=== PATIENT | male | born 1935 | race Caucasian/White ===

== ENCOUNTER 2018-07-17 20:12 | Emergency (ER) | payer MEDICARE, BC, SELFPAY ==
[2018-07-17 20:21] VITALS: BP 128/84; PULSE 73; RESP 22; TEMP 36.8; O2SAT 97; BMI 28.5
--- NOTE | 2018-07-17 20:27 | ED.URI ---
HPI - URI/Sore Throat General Chief Complaint: Upper Respiratory Symptoms Stated Complaint: SOB Time Seen by Provider: 07/17/18 20:26 Source: patient Mode of arrival: ambulatory Limitations: no limitations History of Present Illness HPI Narrative: Patient is an 82-year-old male who presents with difficulty breathing. He says head is hurting as well. He does have a history of Parkinson's. He said he noticed a little bit yesterday and then tonight at dinner he was feeling worse so he went back to his room. He now is feeling better. He denies shortness of breath with exertion he denies chest pain he denies any cough or fever that he is aware of. He has no nausea vomiting or abdominal pain. Related Data Home Medications Medication Instructions Recorded Confirmed dabigatran etexilate [Pradaxa] 300 mg BID #0 01/25/17 donepezil [Aricept] QDAY #0 01/25/17 esomeprazole magnesium [Nexium] QDAY #0 01/25/17 carbidopa-levodopa [Rytary] TID #0 03/10/17 metoprolol succinate [Toprol XL] QDAY #0 03/10/17 losartan 25 mg PO QDAY #0 10/29/17 Previous Rx's Medication Instructions Recorded rasagiline 0.5 mg PO Q DAY #90 tab 01/13/18 carbidopa-levodopa 0 PO SEE INSTRUCTIONS #90 tab 02/15/18 Allergies Allergy/AdvReac Type Severity Reaction Status Date / Time No Known Allergies Allergy Uncoded 02/02/18 12:42 Review of Systems Review of Systems All systems reviewed & are unremarkable except as noted in HPI and below Constitutional Denies chills, Denies fever(s), Denies lethargy and Denies weakness Cardiovascular Denies chest pain, Denies irregular heart rhythm, Denies lightheadedness, Denies palpitations, Reports dyspnea and Denies orthopnea Respiratory Reports as per HPI, Reports dyspnea and Denies wheezing Gastrointestinal Gastrointestinal: Denies abdominal pain, Denies change in bowel habits, Denies diarrhea, Denies nausea and Denies vomiting Genitourinary Denies hematuria, Denies flank pain, Denies urinary incontinence and Denies urinary urgency Musculoskeletal Denies back pain, Denies muscle weakness, Denies numbness and Denies tingling Integumentary/Breasts Denies pruritus, Denies erythema, Denies rash and Denies wounds Neurologic Denies numbness, Denies tingling and Denies weakness Endocrine Denies palpitations Allergic/Immunologic Denies wheezing PFSH Medical History Parkinsons (Acute) Surgical History Status post hernia repair Family History Grandfather Heart disease Grandmother Heart disease Exam Initial Vital Signs Initial Vital Signs: Vital Signs Temperature 98.3 F 07/17/18 20:21 Pulse Rate 73 07/17/18 20:21 Respiratory Rate 22 07/17/18 20:21 Blood Pressure 128/84 07/17/18 20:21 Pulse Oximetry 97 07/17/18 20:21 GENERAL: Alert elderly male with parkinsonian tremor HEENT: Head atraumatic,EOMI, pupils reactive, face symmetric, neck is supple no JVD CARDIOVASCULAR: Regular rate and rhythm without murmurs, rubs or gallops. RESPIRATORY: Breath sounds equal bilaterally, no wheezes rales or rhonchi. ABDOMEN: Soft, nontender. Normoactive bowel sounds all 4 quadrants. No guarding or rebound. ss EXTREMITIES: Normal range of motion, no clubbing or edema. Neurovascularly intact NEUROLOGICAL: Alert and oriented x4.Normal gait and speech. Cranial nerves II through XII grossly intact. Parkinsonian tremor SKIN: Warm, dry, no laceration, no petechiae, no rashes or lesions. Course Orders Ordered: ED Orders 07/17/18 20:40 Consult to Respiratory Therapy Evaluate & Treat EKG-12 Lead Stat 07/17/18 20:41 XR chest 1V Stat 07/17/18 20:50 B Type Natriuretic Peptide Stat Basic Metabolic Panel Stat Complete Blood Count AUTO DIFF Stat Magnesium Stat Partial Thromboplastin Time Stat Prothrombin Time INR Stat Troponin & CK Cardiac Panel Stat 07/17/18 21:35 Urine Culture Stat Urine Microscopic Stat Vital Signs - 8 hr 07/17/18 21:30 07/17/18 22:25 Pulse Rate 74 75 Respiratory Rate 23 19 Blood Pressure 127/60 Blood Pressure [Right Arm] 126/62 Pulse Oximetry 100 MDM - URI/Sore Throat Lab Data Result diagrams: 07/17/18 20:50 07/17/18 20:50 Lab Results 07/17/18 07/17/18 07/17/18 Range/Units 20:50 20:50 20:50 WBC 11.9 H (4.5-11.0) X10^3/uL RBC 4.81 (4.5-5.9) X10^6/uL Hgb 15.0 (13.5-17.5) g/dL Hct 44.4 (41-53) % MCV 92.2 (80-100) fL MCH 31.2 (26-34) PG MCHC 33.9 (30-36) % RDW 13.5 (11.6-14.8) % Plt Count 219 (150-400) X10^3/uL Neut % (Auto) 87.2 H (50-75) % Lymph % (Auto) 6.0 L (25-40) % [place] % (Auto) 5.6 (3-14) % Eos % (Auto) 0.5 L (2-4) % Baso % (Auto) 0.7 (0-2) % Neut # (Auto) 06250 H (8699-1439) /uL PT 12.0 (10.1-12.7) SECONDS INR 1.1 (0.9-1.3) APTT 43 H (26.4-36.2) SECONDS Sodium 143 (137-145) mmol/L Potassium 4.2 (3.4-5.1) mmol/L Chloride 105 (98-107) mmol/L Carbon Dioxide 29 (22-32) mmol/L BUN 18 (9-20) mg/dL Creatinine 1.00 (0.66-1.25) mg/dL Estimated GFR > 60.0 (>60) mL/min BUN/Creatinine Ratio 18.0 (6-22) Glucose 106 (80-110) mg/dL Calcium 10.1 (8.4-10.2) mg/dL Magnesium 2.0 (1.6-2.3) mg/dL Total Creatine Kinase 30 L (55-170) U/L Troponin I < 0.012 (0.01-0.034) ng/mL B-Natriuretic Peptide 84.1 (<100) Urine RBC (0-5/HPF) Urine WBC (0-5/HPF) Urine Bacteria (None) Ur Culture Indicated? Micro UA Comment 07/17/18 Range/Units 21:35 WBC (4.5-11.0) X10^3/uL RBC (4.5-5.9) X10^6/uL Hgb (13.5-17.5) g/dL Hct (41-53) % MCV (80-100) fL MCH (26-34) PG MCHC (30-36) % RDW (11.6-14.8) % Plt Count (150-400) X10^3/uL Neut % (Auto) (50-75) % Lymph % (Auto) (25-40) % [place] % (Auto) (3-14) % Eos % (Auto) (2-4) % Baso % (Auto) (0-2) % Neut # (Auto) (9853-5119) /uL PT (10.1-12.7) SECONDS INR (0.9-1.3) APTT (26.4-36.2) SECONDS Sodium (137-145) mmol/L Potassium (3.4-5.1) mmol/L Chloride (98-107) mmol/L Carbon Dioxide (22-32) mmol/L BUN (9-20) mg/dL Creatinine (0.66-1.25) mg/dL Estimated GFR (>60) mL/min BUN/Creatinine Ratio (6-22) Glucose (80-110) mg/dL Calcium (8.4-10.2) mg/dL Magnesium (1.6-2.3) mg/dL Total Creatine Kinase (55-170) U/L Troponin I (0.01-0.034) ng/mL B-Natriuretic Peptide (<100) Urine RBC 0-1/hpf (0-5/HPF) Urine WBC 10-30/hpf H (0-5/HPF) Urine Bacteria Moderate (10-30) H (None) Ur Culture Indicated? Specimen cultured Micro UA Comment Not Reportable Urine Dip Bedside Urine Glucose Negative Bedside Urine Bilirubin - Negative Bedside Urine Ketone - Negative Urine Specific [place] 1.025 Bedside Urine Occult Blood +/- Bedside Urine pH 6.0 Bedside Urine Protein - Negative Bedside Urine Urobilinogen - Negative Bedside Urine Nitrite - Negative Bedside Urine Leukocytes ++ 125 Esterase Imaging Data Chest x-ray: Radiologist's impression: PROCEDURE: XR CHEST 1V INDICATIONS: short of breath TECHNIQUE: One view of the chest was acquired. COMPARISON: None. FINDINGS: Surgical changes and devices: None. Lungs and pleura: No pleural effusions or pneumothorax. Lungs are clear. Mediastinum: Mediastinal contours appear normal. Heart size is normal. Bones and chest wall: No suspicious bony lesions. Overlying soft tissues appear unremarkable. IMPRESSION: No acute cardiopulmonary disease process. Dictated by: Ying Cochran MD, PhD on 07/17/2018 at 21:19 ECG Data Attestation: I personally reviewed and interpreted this ECG as follows: Prior ECG tracings: not available for review Interpretation: Sinus rhythm rate [address] changes MDM Narrative Medical decision making narrative: Patient has mild leukocytosis chest x-ray is clear. No source of shortness of breath. He does have a history of paroxysmal atrial fibrillation he is currently in sinus. Possible he had an episode of AFib. He does have bacteria and leukocytes in his urine and history of incontinence. However he denies painful or frequent urination no abdominal pain. At this time with culture results. Daughter has made aware of this. Follow up with primary care physician. Discharge Plan Departure Patient Disposition: Home Clinical Impression: Paroxysmal A-fib Discharge Date/Time: 07/17/18 22:31 Interventions: ED Discharge Assessment Last Done: 07/17/18 22:25 Instructions: DI for Shortness of Breath Activity Restrictions/Additional Instructions: *You have been diagnosed with shortness of breath, paroxysmal atrial fibrillation *What to do: Chest x-ray is clear, EKG shows sinus rhythm, urine does have bacteria in it. However you're not currently having symptoms and do not need antibiotics. Wait for urine culture may require antibiotics then please speak with her primary care physician. *Continue to take medications as directed *Follow up with your primary care provider in 2-3 days *Return to ER if you should have increased confusion, increased shortness of breath, chest pain, painful or frequent urination or any new, worsening or concerning symptoms Prescriptions: No Action donepezil [Aricept] 10 MG tablet QDAY Qty: 0 RF: 0 esomeprazole magnesium [Nexium] 40 MG capsule,delayed release(DR/EC) QDAY Qty: 0 RF: 0 dabigatran etexilate [Pradaxa] 150 MG capsule 300 mg BID Qty: 0 RF: 0 carbidopa-levodopa [Rytary] 48.75 MG/195 MG capsule, extended release TID Qty: 0 RF: 0 metoprolol succinate [Toprol XL] 25 MG tablet extended release 24 hr QDAY Qty: 0 RF: 0 losartan 25 MG tablet 25 mg PO QDAY Qty: 0 RF: 0 rasagiline 0.5 MG tablet 0.5 mg PO Q DAY Qty: 90 RF: 3 carbidopa-levodopa 25 MG/100 MG tablet PO SEE INSTRUCTIONS Qty: 90 RF: 3 Referrals: Julia Keith MD [Primary Care Provider] -
--- NOTE | 2018-07-17 20:41 | DI.RAD.S_ITS ---
PROCEDURE: XR CHEST 1V INDICATIONS: short of breath TECHNIQUE: One view of the chest was acquired. COMPARISON: None. FINDINGS: Surgical changes and devices: None. Lungs and pleura: No pleural effusions or pneumothorax. Lungs are clear. Mediastinum: Mediastinal contours appear normal. Heart size is normal. Bones and chest wall: No suspicious bony lesions. Overlying soft tissues appear unremarkable. IMPRESSION: No acute cardiopulmonary disease process. Dictated by: Ying Cochran MD, PhD on 07/17/2018 at 21:19 Approved by: Ying Cochran MD, PhD on 07/17/2018 at 21:19
[2018-07-17 20:59] LABS: Add Manual Diff / Slide Review NO; Basophils Percent Auto 0.7 % (0-2); Eosinophils Percent Auto 0.5 % (2-4); Hematocrit 44.4 % (41-53); Mean Corpuscular HGB Conc 33.9 % (30-36); Mean Corpuscular Hemoglobin 31.2 PG (26-34); Mean Corpuscular Volume 92.2 fL (80-100); Monocytes Percent Auto 5.6 % (3-14); Neutrophils Absolute Auto 10400 /uL (3000-5900); Neutrophils Percent Auto 87.2 % (50-75); Platelet Count 219 X10^3/uL (150-400); Red Blood Cell Count 4.81 X10^6/uL (4.5-5.9); Red Cell Distribution Width 13.5 % (11.6-14.8); White Blood Cell Count 11.9 X10^3/uL (4.5-11.0)
[2018-07-17 21:01] VITALS: BP 128/84; PULSE 73; RESP 22; TEMP 36.8; O2SAT 97; BMI 28.5
[2018-07-17 21:05] LABS: INR 1.1 (0.9-1.3)
[2018-07-17 21:07] LABS: PTT Partial Thromboplastin Tim 43 SECONDS (26.4-36.2)
[2018-07-17 21:09] LABS: Blood Urea Nitrogen 18 mg/dL (9-20); Calcium 10.1 mg/dL (8.4-10.2); Carbon Dioxide 29 mmol/L (22-32); Chloride 105 mmol/L (98-107); Creatine Kinase 30 U/L (55-170); Estimated Glomerular Filt Rate > 60.0 mL/min (>60); Glucose 106 mg/dL (80-110); HEMOLYSIS < 15 (0-50); Potassium 4.2 mmol/L (3.4-5.1); Sodium 143 mmol/L (137-145)
[2018-07-17 21:20] LABS: Troponin I < 0.012 ng/mL (0.01-0.034)
[2018-07-17 21:22] LABS: B Type Natriuretic Peptide 84.1 (<100)
[2018-07-17 21:30] VITALS: BP 126/62; PULSE 74; RESP 23
[2018-07-17 21:44] LABS: Bacteria Urine Moderate (10-30); Culture Indicated Urine Specimen Cultured; RBC Urine 0-1/HPF (0-5/HPF); WBC Urine 10-30/HPF (0-5/HPF)
[2018-07-17 22:25] VITALS: BP 127/60; PULSE 75; RESP 19; O2SAT 100
== END 2018-07-17 22:31 | disposition home or self-care (01) ==
PROVIDERS: Emergency Provider Emergency Medicine; Family Provider Family Medicine; PCP Family Medicine
DX: I48.91 Unspecified atrial fibrillation (principal)
CPT/HCPCS: 36591; 71045; 80048; 81003; 81015; 82550; 82553; 83735; 83880; 84484; 85025; 85610; 85730; 87077; 87086; 87186; 93005; 99283; 99285

== ENCOUNTER → 2018-07-29 12:16 | Outpatient (CLI) | payer MEDICARE, BC, SELFPAY | PROVIDERS: Family Provider Family Medicine; PCP Family Medicine; Visit Provider Family Medicine | DX: R32 Unspecified urinary incontinence (principal) | CPT/HCPCS: 87077; 87086; 87186 ==

== ENCOUNTER → 2018-08-22 11:21 | Outpatient (CLI) | payer MEDICARE, BC, SELFPAY ==
[2018-08-22 12:02] LABS: RBC Urine None Seen (0-5/HPF)
[2018-08-22 12:10] LABS: Appearance Urine UA SL CLOUDY; Bilirubin Urine UA NEGATIVE (NEGATIVE); Color Urine UA YELLOW; Glucose Urine UA NEGATIVE (Normal); Ketones Urine UA NEGATIVE (NEGATIVE); Leukocyte Esterase Urine UA 2+ (NEGATIVE); Nitrite Urine UA POSITIVE (Negative); Occult Blood Urine UA TRACE-LYSED (Negative); Protein Urine UA NEGATIVE (Negative); Specific Gravity Urine UA 1.025 (1.000-1.035); Urobilinogen Urine UA 0.2 E.U./dL (0.2)
[2018-08-22 12:17] LABS: WBC Urine 10-30/HPF (0-5/HPF)
[2018-08-22 12:18] LABS: Bacteria Urine Few (2-10); Culture Indicated Urine Specimen Cultured
== END ==
PROVIDERS: PCP Family Medicine; Visit Provider Family Medicine
DX: R30.0 Dysuria (principal)
CPT/HCPCS: 81001; 87077; 87086; 87186

== ENCOUNTER → 2018-08-31 13:31 | Outpatient (CLI) | payer MEDICARE, BC, SELFPAY ==
[2018-08-31 14:51] LABS: Appearance Urine UA CLEAR; Bilirubin Urine UA NEGATIVE (NEGATIVE); Color Urine UA YELLOW; Glucose Urine UA NEGATIVE (Normal); Ketones Urine UA NEGATIVE (NEGATIVE); Leukocyte Esterase Urine UA TRACE (NEGATIVE); Nitrite Urine UA NEGATIVE (Negative); Occult Blood Urine UA NEGATIVE (Negative); Protein Urine UA NEGATIVE (Negative); Specific Gravity Urine UA >=1.030 (1.000-1.035); Urobilinogen Urine UA 0.2 E.U./dL (0.2)
[2018-08-31 15:02] LABS: RBC Urine 0-1/HPF (0-5/HPF)
[2018-08-31 15:03] LABS: Bacteria Urine Occasional (0-1); Culture Indicated Urine Specimen Cultured; Mucus Urine 1+ (Negative); Squamous Epithelial Cell Urine 0-1 /HPF; WBC Urine 5-10/HPF (0-5/HPF)
== END ==
PROVIDERS: Family Provider Family Medicine; PCP Family Medicine; Visit Provider Family Medicine
DX: R39.9 Unspecified symptoms and signs involving the genitourinary system (principal)
CPT/HCPCS: 81001; 87086

== ENCOUNTER 2018-11-11 09:22 | Emergency (ER) | payer MEDICARE, BC, SELFPAY ==
[2018-11-11 09:28] VITALS: BP 150/98; PULSE 67; RESP 17; TEMP 36.4; O2SAT 100
[2018-11-11 10:20] LABS: Hematocrit 42.2 % (41-53); Hemoglobin 14.1 g/dL (13.5-17.5)
--- NOTE | 2018-11-11 10:42 | ED_ITS ---
HPI - GI Bleed General Chief complaint: GI Bleed Stated complaint: RECTAL BLEEDING Time Seen by Provider: 11/11/18 09:34 Source: patient Mode of arrival: ambulatory Limitations: no limitations History of Present Illness HPI Narrative: 82-year-old male, nonsmoker with history of AFib on Pradaxa presents with bright red rectal bleeding. Patient complains that the last 2 mornings he has had a small amount of bright red blood on his underpants. He denies any bloody bowel movements or dark stool. He has had no blood in his urine. He denies any dizziness, weakness or lightheadedness. He denies chest pain or shortness of breath. He denies any abdominal pain, cramping or diarrhea. He has no history of ulcers, liver disease or varices. His last colonoscopy was about 6 years ago and noted diverticulosis MD complaint: blood on toilet paper Onset (ago): day(s) Pain Consistency: intermittent and now resolved Severity: mild Relieving factors: none Exacerbating factors: none Context: anticoagulant use Associated symptoms: denies other symptoms Treatments Prior to Arrival: none Related Data Home Medications Medication Instructions Recorded Confirmed donepezil [Aricept] 10 mg PO DAILY #0 01/25/17 11/11/18 esomeprazole magnesium [Nexium] 40 mg PO DAILY #0 01/25/17 11/11/18 carbidopa-levodopa [Rytary] 1 cap PO TID #0 03/10/17 11/11/18 losartan 25 mg PO DAILY #0 10/29/17 11/11/18 carbidopa 25 mg-levodopa 100 mg 1 tab PO DAILY tab 07/19/18 11/11/18 tablet dabigatran etexilate [Pradaxa] 150 mg PO BID 11/11/18 11/11/18 metoprolol succinate [Toprol XL] 50 mg PO DAILY 11/11/18 rasagiline 1 mg PO DAILY 11/11/18 11/11/18 Previous Rx's Medication Instructions Recorded fluticasone furoate 27.5 1 spray NASAL DAILY #9.1 ml 07/19/18 mcg/actuation nasal spray,suspension Allergies Allergy/AdvReac Type Severity Reaction Status Date / Time nitrofurantoin AdvReac Verified 07/29/18 12:21 [From Macrobid] Review of Systems Constitutional Denies chills, Denies fever(s), Denies lethargy and Denies weakness Eyes Denies change in vision, Denies eye discharge, Denies irritation and Denies loss of vision ENT Ears, Nose, Mouth, and Throat: Denies change in voice, Denies neck pain and Denies sore throat Cardiovascular Denies chest pain, Denies irregular heart rhythm, Denies lightheadedness, Denies palpitations, Denies dyspnea, Denies dyspnea on exertion and Denies orthopnea Respiratory Denies cough, Denies dyspnea, Denies dyspnea on exertion and Denies wheezing Gastrointestinal Gastrointestinal: Denies abdominal pain, Reports hematochezia, Denies change in bowel habits, Denies diarrhea, Denies nausea and Denies vomiting Genitourinary Denies hematuria, Denies flank pain, Denies urinary incontinence and Denies urinary urgency Musculoskeletal Denies neck pain Integumentary/Breasts Denies pruritus, Denies erythema, Denies rash and Denies wounds Neurologic Denies confusion, Denies loss of vision and Denies weakness Psychiatric Denies anxiety, Denies confusion, Denies depression, Denies homicidal ideation and Denies suicidal ideation Endocrine Denies palpitations Hematologic/Lymphatic Denies easy bruising Allergic/Immunologic Denies wheezing [facility] Medical History Atrial fibrillation (Chronic 2009) Zavaleta's esophagus (Chronic) Cataract (Chronic 1999) Chronic back pain (Chronic 1999) Diverticular disease (Chronic 2006) Esophageal ring (Chronic 1999) Esophageal web (Chronic 1999) Fecal incontinence (Chronic 2014) GERD (gastroesophageal reflux disease) (Chronic 1999) Gout (Chronic 1969) Hayfever (Chronic 1999) Hearing loss (Chronic 1999) Herpes (Chronic 1982) Hypertension (Chronic 2007) Parkinson's disease (Chronic 2010) Polymyalgia rheumatica (Chronic 2010) Sleep apnea (Chronic 2010) Tinnitus (Chronic 2016) Urinary incontinence (Chronic 2014) Colon polyps (Resolved 2001) Melanoma (Resolved 2001) Recurrent sinusitis (Resolved 1999) Skin cancer (Resolved 2006) Surgical History Anesthesia (Resolved) History of sinus surgery (Resolved 1989) Status post hernia repair (Resolved 1999) Family History Grandfather Heart disease Grandmother Heart disease Father Alcoholism Mother Alzheimer's disease Grandfather MVA (motor vehicle accident) Grandmother No problems noted. Social History Smoking Status: Never smoker Exam Narrative Exam Narrative: GEN: AOx3 and in mild distress, resting comfortably EYES: Pupils are equal, round, and reactive to light and accommodation. Extraoccular muscles are intact bilaterally. There is no subconjunctival hemorrhage or exudate. CHEST: Lungs are clear to auscultation bilaterally and free of wheezes, rales, or rhonchi. Heart rate is regular rhythm, there are no murmurs, clicks, rubs, or gallops. There is no chest wall tenderness. ABD: Abdomen is soft and nontender. There is no guarding or rebound. Bowel sounds are normal in all 4 quadrants. There is no mass or organomegaly. RECTAL: No hemorrhoid, no fissure, nontender exam and no obvious blood. Hemoccult negative EXT: Full painless ROM of all extremities with no loss of sensation or strength. SKIN: Warm, pink, and dry. No erythema or rash Initial Vital Signs Initial Vital Signs: Vital Signs Temperature 97.5 F L 11/11/18 09:28 Pulse Rate 67 11/11/18 09:28 Respiratory Rate 17 11/11/18 09:28 Blood Pressure 150/98 H 11/11/18 09:28 Pulse Oximetry 100 11/11/18 09:28 Course Orders Ordered: ED Orders 11/11/18 10:07 Hemoglobin and Hematocrit Stat Consultations Consultation #1: Discussion with PCP, Dr. Keith, we agree that remaining on Pradaxa and close follow-up is most appropriate course of action. She expects to see him next week Vital Signs - 8 hr 11/11/18 09:28 Temperature 97.5 F L Pulse Rate 67 Respiratory Rate 17 Blood Pressure 150/98 H Pulse Oximetry 100 MDM - GI Bleed Lab Data Result diagrams: 11/11/18 10:07 Lab Results 11/11/18 Range/Units 10:07 Hgb 14.1 (13.5-17.5) g/dL Hct 42.2 (41-53) % Discharge Plan Departure Patient Disposition: Home Clinical Impression: Bright red rectal bleeding Discharge Date/Time: 01/18/19 10:46 Instructions: DI for Rectal Bleeding Activity Restrictions/Additional Instructions: *You have been diagnosed with [ Acute rectal bleeding ] *What to do: *Take medications as directed. CONTINUE PRADAXA *Follow up with your primary care provider in 2-3 days, call for an appointment. Let them know you were seen in the Emergency Department and that we ask that you be seen in follow up *Return to ER if you should have any new, worsening or concerning symptoms 1. Drink plenty of fluids with frequent small sips. 2. For the next 24 hours a clear liquid diet is advised. After that please employ a brat diet which would include bananas, rice, apples, toast. 3. Please continue to take medications as previously directed. Prescriptions: No Action donepezil [Aricept] 10 MG tablet 10 mg PO DAILY Qty: 0 RF: 0 esomeprazole magnesium [Nexium] 40 MG capsule,delayed release(DR/EC) 40 mg PO DAILY Qty: 0 RF: 0 carbidopa-levodopa [Rytary] 48.75 MG/195 MG capsule, extended release 1 cap PO TID Qty: 0 RF: 0 losartan 25 MG tablet 25 mg PO DAILY Qty: 0 RF: 0 carbidopa-levodopa 25-100 mg tablet 1 tab PO DAILY RF: 0 fluticasone furoate [Flonase Sensimist] 27.5 mcg/actuation spray,suspension 1 spray NASAL DAILY Qty: 9.1 RF: 0 metoprolol succinate [Toprol XL] 50 mg tablet extended release 24 hr 50 mg PO DAILY RF: 0 rasagiline 1 mg tablet 1 mg PO DAILY RF: 0 dabigatran etexilate [Pradaxa] 150 mg capsule 150 mg PO BID RF: 0 Referrals: Julia Keith MD [Primary Care Provider] -
[2018-11-11 10:45] VITALS: BP 139/83; PULSE 70; RESP 16; O2SAT 100
== END 2018-11-11 10:46 | disposition home or self-care (01) ==
PROVIDERS: Emergency Provider Emergency Medicine; Family Provider Family Medicine; PCP Family Medicine
DX: K62.5 Hemorrhage of anus and rectum (principal)
CPT/HCPCS: 85014; 85018; 99282; 99283

== ENCOUNTER 2019-03-04 17:23 | Emergency (ER) | payer MEDICARE, BC, SELFPAY ==
[2019-03-04 17:25] VITALS: BP 147/86; PULSE 58; RESP 18; TEMP 36.7; O2SAT 95
--- NOTE | 2019-03-04 17:37 | DI.CT.S_ITS ---
PROCEDURE: CT HEAD/BRAIN WO CON INDICATIONS: memory loss TECHNIQUE: Noncontrast 4.5 mm thick angled axial sections acquired from the foramen magnum to the vertex, with coronal and sagittal reformats. For radiation dose reduction, the following was used: automated exposure control, adjustment of mA and/or kV according to patient size. COMPARISON: None. FINDINGS: Image quality: Excellent. CSF spaces: Basal cisterns are patent. No extra-axial fluid collections. The ventricles are symmetric in size and shape. Brain: No intracranial bleeds or masses. There is cerebral volume loss for age, with resultant ventricular and sulcal prominence. There are periventricular and deep white matter chronic small vessel ischemic changes. There is intracranial internal carotid artery atherosclerosis. Skull and face: Calvarium and visualized facial bones appear intact, without suspicious lesions. Sinuses: Visualized sinuses and mastoids are clear. IMPRESSION: No acute intracranial process. Dictated by: Gucci Mcbride M.D. on 03/04/2019 at 18:05 Approved by: Gucci Mcbride M.D. on 03/04/2019 at 18:07
--- NOTE | 2019-03-04 17:37 | DI.RAD.S_ITS ---
PROCEDURE: XR CHEST 1V INDICATIONS: chest pain TECHNIQUE: One view of the chest was acquired. COMPARISON: [facility], CR, XR CHEST 1V, 07/17/2018, 20:46. FINDINGS: Surgical changes and devices: None. Lungs and pleura: Lungs are clear. No pleural effusions or pneumothorax. Mediastinum: The cardiac contours are within normal limits. The aorta demonstrates calcification and tortuosity. Bones and chest wall: Age-appropriate bony degenerative changes are seen. No suspicious bony lesions. Overlying soft tissues appear unremarkable. IMPRESSION: Unremarkable imaging examination for age. Dictated by: Elmer Ashley M.D. on 03/04/2019 at 17:11 Approved by: Elmer Ashley M.D. on 03/04/2019 at 17:11
[2019-03-04 17:39] VITALS: BP 165/57; PULSE 52; RESP 18; O2SAT 95
[2019-03-04 17:59] LABS: Add Manual Diff / Slide Review NO; Basophils Absolute Auto 0 /uL (0-100); Basophils Percent Auto 0.2 % (0-2); Eosinophils Absolute Auto 100 /uL (0-450); Hematocrit 43.9 % (41-53); Hemoglobin 14.3 g/dL (13.5-17.5); Lymphocytes Absolute Auto 1300 /uL (1100-4500); Lymphocytes Percent Auto 19.3 % (25-40); Mean Corpuscular HGB Conc 32.7 % (30-36); Mean Corpuscular Hemoglobin 30.1 PG (26-34); Monocytes Absolute Auto 600 /uL (0-900); Monocytes Percent Auto 9.1 % (3-14); Neutrophils Absolute Auto 4800 /uL (1500-7000); Neutrophils Percent Auto 69.4 % (50-75); Platelet Count 259 X10^3/uL (150-400); Red Blood Cell Count 4.77 X10^6/uL (4.5-5.9); Red Cell Distribution Width 13.8 % (11.6-14.8); White Blood Cell Count 6.8 X10^3/uL (4.5-11.0)
--- NOTE | 2019-03-04 18:04 | ED_ITS ---
HPI - Neuro Symptoms/Deficit General Chief Complaint: Neuro Symptoms/Deficit Stated Complaint: episode of memory loss, now resolved. Time Seen by Provider: 03/04/19 18:04 Source: patient Mode of arrival: EMS Limitations: no limitations History of Present Illness HPI Narrative: Patient is an 83-year-old male brought in by EMS from [facility]. Was reported that this evening he was going to dinner and was reported to have an episode where he seemed confused and did know where he was. This seems to have resolved by now. Upon further questioning patient states that he has little memory of lunch today. He states he does not remember breakfast but this is not unusual for him because he does not eat breakfast. He also states that he does not remember last evening. He reports now that all the symptoms seems to have improved. Upon further questioning he does describe having dysuria that has been going on the past couple days. Patient's daughter was at bedside and stated that she checked his medications and it does appear that he has been taking his medications. She does state that he has had a urinary tract infection in the past and she thinks that he had some memory issues during that time. There is no reports of falls. On Anticoagulants: Yes (Pradaxa) Related Data Home Medications Medication Instructions Recorded Confirmed donepezil [Aricept] 10 mg PO DAILY #0 01/25/17 11/11/18 esomeprazole magnesium [Nexium] 40 mg PO DAILY #0 01/25/17 11/11/18 carbidopa-levodopa [Rytary] 1 cap PO TID #0 03/10/17 11/11/18 losartan 25 mg PO DAILY #0 10/29/17 11/11/18 dabigatran etexilate [Pradaxa] 150 mg PO BID 11/11/18 11/11/18 metoprolol succinate [Toprol XL] 50 mg PO DAILY 11/11/18 rasagiline 1 mg PO DAILY 11/11/18 11/11/18 Previous Rx's Medication Instructions Recorded fluticasone furoate 27.5 1 spray NASAL DAILY #9.1 ml 07/19/18 mcg/actuation nasal spray,suspension carbidopa 25 mg-levodopa 100 mg 1 tab PO DAILY #90 tab 02/17/19 tablet levofloxacin [Levaquin] 500 mg PO DAILY 2 Days #2 tab 03/04/19 Allergies Allergy/AdvReac Type Severity Reaction Status Date / Time nitrofurantoin AdvReac Verified 07/29/18 12:21 [From Macrobid] Review of Systems Constitutional Denies fever(s), Denies frequent falls, Denies headache(s) and Denies weakness ENT Ears, Nose, Mouth, and Throat: Denies headache(s) Cardiovascular Denies chest pain, Denies palpitations and Denies dyspnea Respiratory Denies dyspnea Gastrointestinal Gastrointestinal: Denies abdominal pain, Denies nausea and Denies vomiting Genitourinary Denies dysuria Integumentary/Breasts Denies rash Neurologic Denies abnormal movements, Denies abnormal speech, Reports confusion, Denies frequent falls, Denies headache(s), Reports memory loss and Denies weakness Psychiatric Reports confusion and Reports memory loss Endocrine Denies palpitations Hematologic/Lymphatic Denies easy bleeding and Denies easy bruising [facility] Medical History Atrial fibrillation (Chronic 2009) Zavaleta's esophagus (Chronic) Cataract (Chronic 1999) Chronic back pain (Chronic 1999) Diverticular disease (Chronic 2006) Esophageal ring (Chronic 1999) Esophageal web (Chronic 1999) Fecal incontinence (Chronic 2014) GERD (gastroesophageal reflux disease) (Chronic 1999) Gout (Chronic 1969) Hayfever (Chronic 1999) Hearing loss (Chronic 1999) Herpes (Chronic 1982) Hypertension (Chronic 2007) Parkinson's disease (Chronic 2010) Polymyalgia rheumatica (Chronic 2010) Sleep apnea (Chronic 2010) Tinnitus (Chronic 2015) Urinary incontinence (Chronic 2014) Colon polyps (Resolved 2001) Melanoma (Resolved 2001) Recurrent sinusitis (Resolved 1999) Skin cancer (Resolved 2006) Social History Smoking Status: Former smoker Exam Initial Vital Signs Initial Vital Signs: Vital Signs Temperature 98.1 F 03/04/19 17:25 Pulse Rate 58 L 03/04/19 17:25 Respiratory Rate 18 03/04/19 17:25 Blood Pressure 147/86 H 03/04/19 17:25 Pulse Oximetry 95 03/04/19 17:25 Const General: cooperative, healthy appearing, comfortable, well developed, well groomed and No acute distress Orientation: alert, awake, oriented to person, oriented to place and oriented to time Limitations: mental status not altered [facility] Head: normal to inspection and normocephalic Ears: hearing grossly normal bilaterally Nose: external nose normal Resp Effort & Inspection: normal respiratory effort Auscultation: clear to auscultation bilaterally Cardio Rate: bradycardic Rhythm: regular rhythm Pulses: radial pulses present GI Inspection: non-distended Palpation: soft Back/Spine/Pelvis Back: No CVA tenderness Skin Lesions: no lesions Rashes: no rashes Neuro General: alert, awake and oriented x3 Speech: speech normal Motor: muscle tone normal throughout Sensory Exam: no sensory deficits noted Extrem General: normal to inspection and capillary refill normal Psych Appearance: grossly normal and well kempt Scores GCS [place] coma scale eye opening: Spontaneous Real coma scale verbal response: Orientated [place] coma scale motor response: Obey commands [place] coma scale total score: 15 Course Orders Ordered: ED Orders 03/04/19 17:37 CT head/brain wo con Stat XR chest 1V Stat EKG-12 Lead Stat 03/04/19 17:40 Complete Blood Count AUTO DIFF Stat Comprehensive Metabolic Panel Stat Lipase Stat Partial Thromboplastin Time Stat Prothrombin Time INR Stat Troponin & CK Cardiac Panel Stat 03/04/19 19:18 Urine Culture Stat Urine Microscopic Stat Discontinued Medications Levofloxacin (Levaquin) 500 mg PO NOW ONE Stop: 03/04/19 19:33 Last Admin: 03/04/19 19:46 Dose: 500 mg Vital Signs - 8 hr 03/04/19 18:39 03/04/19 19:54 Pulse Rate 47 L 50 L Respiratory Rate 12 18 Blood Pressure [Right Arm] 128/72 Pulse Oximetry 98 MDM - Neuro Symptoms/Deficit Lab Data Attestation: I reviewed the patient's lab results. Result diagrams: 03/04/19 17:40 03/04/19 17:40 Lab Results 03/04/19 03/04/19 03/04/19 Range/Units 17:40 17:40 17:40 WBC 6.8 (4.5-11.0) X10^3/uL RBC 4.77 (4.5-5.9) X10^6/uL Hgb 14.3 (13.5-17.5) g/dL Hct 43.9 (41-53) % MCV 92.0 (80-100) fL MCH 30.1 (26-34) PG MCHC 32.7 (30-36) % RDW 13.8 (11.6-14.8) % Plt Count 259 (150-400) X10^3/uL Neut % (Auto) 69.4 (50-75) % Lymph % (Auto) 19.3 L (25-40) % [place] % (Auto) 9.1 (3-14) % Eos % (Auto) 2.0 (2-4) % Baso % (Auto) 0.2 (0-2) % Neut # (Auto) 4800 (3521-8211) /uL Lymph # (Auto) 1300 (0001-5969) /uL [place] # (Auto) 600 (0-900) /uL Eos # (Auto) 100 (0-450) /uL Baso # (Auto) 0 (0-100) /uL PT 13.5 H (10.1-12.7) SECONDS INR 1.2 (0.9-1.3) APTT 68 H D (26.4-36.2) SECONDS Sodium 138 (137-145) mmol/L Potassium 4.2 (3.4-5.1) mmol/L Chloride 102 (98-107) mmol/L Carbon Dioxide 27 (22-32) mmol/L BUN 19 (9-20) mg/dL Creatinine 1.10 (0.66-1.25) mg/dL Estimated GFR > 60.0 (>60) mL/min BUN/Creatinine Ratio 17.3 (6-22) Glucose 104 (80-110) mg/dL Calcium 9.7 (8.4-10.2) mg/dL Total Bilirubin 0.4 (0.2-1.3) mg/dL AST 20 (17-59) IU/L ALT 14 L (21-72) IU/L Alkaline Phosphatase 78 (38-126) U/L Total Creatine Kinase 28 L (55-170) U/L CK-MB (CK-2) TNP CK-MB (CK-2) Rel Index TNP Troponin I < 0.012 (0.01-0.034) ng/mL Total Protein 6.9 (6.3-8.2) g/dL Albumin 4.1 (3.5-5.0) g/dL Globulin 2.8 (1.7-4.1) g/dL Albumin/Globulin Ratio 1.5 (1.0-2.8) Lipase 32 (23-300) U/L Urine RBC (0-5/HPF) Urine WBC (0-5/HPF) Urine Bacteria (None) Ur Culture Indicated? 03/04/19 Range/Units 19:18 WBC (4.5-11.0) X10^3/uL RBC (4.5-5.9) X10^6/uL Hgb (13.5-17.5) g/dL Hct (41-53) % MCV (80-100) fL MCH (26-34) PG MCHC (30-36) % RDW (11.6-14.8) % Plt Count (150-400) X10^3/uL Neut % (Auto) (50-75) % Lymph % (Auto) (25-40) % [place] % (Auto) (3-14) % Eos % (Auto) (2-4) % Baso % (Auto) (0-2) % Neut # (Auto) (2476-6139) /uL Lymph # (Auto) (2992-0931) /uL [place] # (Auto) (0-900) /uL Eos # (Auto) (0-450) /uL Baso # (Auto) (0-100) /uL PT (10.1-12.7) SECONDS INR (0.9-1.3) APTT (26.4-36.2) SECONDS Sodium (137-145) mmol/L Potassium (3.4-5.1) mmol/L Chloride (98-107) mmol/L Carbon Dioxide (22-32) mmol/L BUN (9-20) mg/dL Creatinine (0.66-1.25) mg/dL Estimated GFR (>60) mL/min BUN/Creatinine Ratio (6-22) Glucose (80-110) mg/dL Calcium (8.4-10.2) mg/dL Total Bilirubin (0.2-1.3) mg/dL AST (17-59) IU/L ALT (21-72) IU/L Alkaline Phosphatase (38-126) U/L Total Creatine Kinase (55-170) U/L CK-MB (CK-2) CK-MB (CK-2) Rel Index Troponin I (0.01-0.034) ng/mL Total Protein (6.3-8.2) g/dL Albumin (3.5-5.0) g/dL Globulin (1.7-4.1) g/dL Albumin/Globulin Ratio (1.0-2.8) Lipase (23-300) U/L Urine RBC None seen (0-5/HPF) Urine WBC 5-10/hpf H (0-5/HPF) Urine Bacteria Many (>30) H (None) Ur Culture Indicated? Specimen cultured Urine Dip Bedside Urine Glucose Negative Bedside Urine Bilirubin - Negative Bedside Urine Ketone - Negative Urine Specific [place] 1.020 Bedside Urine Occult Blood +/- Bedside Urine pH 6.0 Bedside Urine Protein - Negative Bedside Urine Urobilinogen - Negative Bedside Urine Nitrite + Positive Bedside Urine Leukocytes +++ [address] scan - head: Radiologist's impression: [address] [address] [address] Scan Report Signed Patient: Emmanuel Egan#: [id number] : 6Acct:[id number] Age/Sex: 83 / MDate of Service: 03/04/19 Loc: ED Accession Number: [id number] Procedure: CT head/brain wo con Ordering Provider: Urszula Cuello D.O. PROCEDURE: CT HEAD/BRAIN WO CON INDICATIONS: memory loss TECHNIQUE: Noncontrast 4.5 mm thick angled axial sections acquired from the foramen magnum to the vertex, with coronal and sagittal reformats. For radiation dose reduction, the following was used: automated exposure control, adjustment of mA and/or kV according to patient size. COMPARISON: None. FINDINGS: Image quality: Excellent. CSF spaces: Basal cisterns are patent. No extra-axial fluid collections. The ventricles are symmetric in size and shape. Brain: No intracranial bleeds or masses. There is cerebral volume loss for age, with resultant ventricular and sulcal prominence. There are periventricular and deep white matter chronic small vessel ischemic changes. There is intracranial internal carotid artery atherosclerosis. Skull and face: Calvarium and visualized facial bones appear intact, without suspicious lesions. Sinuses: Visualized sinuses and mastoids are clear. IMPRESSION: No acute intracranial process. Dictated by: Gucci Mcbride M.D. on 03/04/2019 at 18:05 Approved by: Gucci Mcbride M.D. on 03/04/2019 at 18:07 Chest x-ray: Radiologist's impression: [address] [address] XRay Report Signed Patient: Yan Egan#: [id number] : 6Acct:[id number] Age/Sex: 83 / MDate of Service: 03/04/19 Loc: ED Accession Number: [id number] Procedure: XR chest 1V Ordering Provider: Urszula Cuello D.O. PROCEDURE: XR CHEST 1V INDICATIONS: chest pain TECHNIQUE: One view of the chest was acquired. COMPARISON: [facility], CR, XR CHEST 1V, 07/17/2018, 20:46. FINDINGS: Surgical changes and devices: None. Lungs and pleura: Lungs are clear. No pleural effusions or pneumothorax. Mediastinum: The cardiac contours are within normal limits. The aorta demonstrates calcification and tortuosity. Bones and chest wall: Age-appropriate bony degenerative changes are seen. No suspicious bony lesions. Overlying soft tissues appear unremarkable. IMPRESSION: Unremarkable imaging examination for age. Dictated by: Elmer Ashley M.D. on 03/04/2019 at 17:11 Approved by: Elmer Ashley M.D. on 03/04/2019 at 17:11 ECG Data Attestation: I personally reviewed and interpreted this ECG as follows: Prior ECG tracings: not available for review Interpretation: Sinus bradycardia Ventricular rate of 53 Normal axis Normal QRS Normal QTC No ST T wave changes MDM Narrative Medical decision making narrative: Patient is a GCS of 15. He was alert and oriented x3. He initially had some problems with the year but then was able to get it correctly. He does have a nitrite positive urine and upon further questioning he states that he does have dysuria and has had this for the past day or so. His daughter states that the last time he had a urinary tract infection he had some memory issues. Patient does have a history of dementia. Is on Aricept for this. I have low suspicion for CVA. His symptoms could also be the result of transient global amnesia but this seems to have resolved. Will send home with a prescription for antibiotics. He had allergic reaction to the Macrobid during his last treatment for urinary tract infection so will avoid this. I did discuss the case with Dr. Amador who was on-call for the patient's primary provider and will get a message to the patient's primary provider about a follow-up the beginning of next week. The patient and his daughter was at bedside were given strict return precautions. Expressed understanding and agreement with plan. Discharge Plan Departure Patient Disposition: Home Clinical Impression: Amnesia, Acute UTI Discharge Date/Time: 03/04/19 19:57 Interventions: ED Discharge Assessment Last Done: 03/04/19 19:56 Instructions: DI for Urinary Tract Infection (UTI) Activity Restrictions/Additional Instructions: Take the medications as directed. Continue all of your other medications as directed. On Wednesday morning contact your primary care doctor's office for a follow-up. Return to the emergency department for any new or worsening symptoms Prescriptions: New levofloxacin [Levaquin] 500 mg tablet 500 mg PO DAILY 2 Days Qty: 2 RF: 0 No Action donepezil [Aricept] 10 MG tablet 10 mg PO DAILY Qty: 0 RF: 0 esomeprazole magnesium [Nexium] 40 MG capsule,delayed release(DR/EC) 40 mg PO DAILY Qty: 0 RF: 0 carbidopa-levodopa [Rytary] 48.75 MG/195 MG capsule, extended release 1 cap PO TID Qty: 0 RF: 0 losartan 25 MG tablet 25 mg PO DAILY Qty: 0 RF: 0 carbidopa-levodopa 25-100 mg tablet 1 tab PO DAILY Qty: 90 RF: 3 fluticasone furoate [Flonase Sensimist] 27.5 mcg/actuation spray,suspension 1 spray NASAL DAILY Qty: 9.1 RF: 0 metoprolol succinate [Toprol XL] 50 mg tablet extended release 24 hr 50 mg PO DAILY RF: 0 rasagiline 1 mg tablet 1 mg PO DAILY RF: 0 dabigatran etexilate [Pradaxa] 150 mg capsule 150 mg PO BID RF: 0 Referrals: Julia Keith MD [Primary Care Provider] -
[2019-03-04 18:05] LABS: INR 1.2 (0.9-1.3); Prothrombin Time 13.5 SECONDS (10.1-12.7)
[2019-03-04 18:08] LABS: PTT Partial Thromboplastin Tim 68 SECONDS (26.4-36.2)
[2019-03-04 18:10] LABS: Alanine Aminotransferase 14 IU/L (21-72); Albumin 4.1 g/dL (3.5-5.0); Albumin Globulin Ratio 1.5 (1.0-2.8); Alkaline Phosphatase 78 U/L (38-126); Aspartate Aminotransferase 20 IU/L (17-59); BUN Creatinine Ratio 17.3 (6-22); Bilirubin Total 0.4 mg/dL (0.2-1.3); Blood Urea Nitrogen 19 mg/dL (9-20); Calcium 9.7 mg/dL (8.4-10.2); Carbon Dioxide 27 mmol/L (22-32); Chloride 102 mmol/L (98-107); Creatine Kinase 28 U/L (55-170); Estimated Glomerular Filt Rate > 60.0 mL/min (>60); Globulin 2.8 g/dL (1.7-4.1); Glucose 104 mg/dL (80-110); HEMOLYSIS < 15 (0-50); Lipase 32 U/L (23-300); Potassium 4.2 mmol/L (3.4-5.1); Sodium 138 mmol/L (137-145); Total Protein 6.9 g/dL (6.3-8.2)
[2019-03-04 18:21] LABS: Troponin I < 0.012 ng/mL (0.01-0.034)
[2019-03-04 18:39] VITALS: PULSE 47; RESP 12
[2019-03-04 19:39] LABS: RBC Urine None Seen (0-5/HPF)
[2019-03-04] MEDS: levoFLOXacin 250 MG TABLET 500 MG PO (19:46)
[2019-03-04 19:54] VITALS: BP 128/72; PULSE 50; RESP 18; O2SAT 98
[2019-03-04 19:56] LABS: Bacteria Urine Many (>30); Culture Indicated Urine Specimen Cultured; WBC Urine 5-10/HPF (0-5/HPF)
== END 2019-03-04 19:57 | disposition home or self-care (01) ==
PROVIDERS: Emergency Medicine; Emergency Provider Emergency Medicine; PCP Family Medicine
DX: R41.3 Other amnesia (principal); N39.0 Urinary tract infection, site not specified; R00.1 Bradycardia, unspecified; Z79.01 Long term (current) use of anticoagulants; R41.0 Disorientation, unspecified
CPT/HCPCS: 36591; 70450; 71045; 80053; 81003; 81015; 82550; 83690; 84484; 85025; 85610; 85730; 87077; 87086; 87186; 93005; 93010; 99284; 99285; 99291

== ENCOUNTER → 2019-03-14 13:34 | Outpatient (CLI) | payer MEDICARE, BC, SELFPAY | PROVIDERS: PCP Family Medicine; Visit Provider Family Medicine | DX: R30.0 Dysuria (principal); Z87.440 Personal history of urinary (tract) infections | CPT/HCPCS: 87086 ==

== ENCOUNTER → 2019-07-11 15:17 | Outpatient (CLI) | payer MEDICARE, BC, SELFPAY ==
[2019-07-11 15:34] LABS: Bacteria Urine None Seen; RBC Urine None Seen (0-5/HPF); WBC Urine None Seen (0-5/HPF)
[2019-07-11 15:47] LABS: Appearance Urine UA CLEAR; Bilirubin Urine UA NEGATIVE (NEGATIVE); Color Urine UA YELLOW; Glucose Urine UA NEGATIVE (Negative); Ketones Urine UA NEGATIVE (NEGATIVE); Leukocyte Esterase Urine UA NEGATIVE (NEGATIVE); Nitrite Urine UA NEGATIVE (Negative); Occult Blood Urine UA NEGATIVE (Negative); Protein Urine UA NEGATIVE (Negative); Specific Gravity Urine UA 1.015 (1.000-1.035); Urobilinogen Urine UA 0.2 E.U./dL (0.2); pH Urine UA 6.5 (4.5-8.0)
[2019-07-11 15:47] LABS: Add Manual Diff / Slide Review NO; Basophils Absolute Auto 0 /uL (0-100); Basophils Percent Auto 0.4 % (0-2); Eosinophils Absolute Auto 100 /uL (0-450); Hematocrit 43.5 % (41-53); Hemoglobin 14.7 g/dL (13.5-17.5); Lymphocytes Absolute Auto 1900 /uL (1100-4500); Lymphocytes Percent Auto 27.6 % (25-40); Mean Corpuscular HGB Conc 33.8 % (30-36); Mean Corpuscular Hemoglobin 31.5 PG (26-34); Mean Corpuscular Volume 93.1 fL (80-100); Monocytes Absolute Auto 600 /uL (0-900); Monocytes Percent Auto 8.7 % (3-14); Neutrophils Absolute Auto 4200 /uL (1500-7000); Neutrophils Percent Auto 61.3 % (50-75); Platelet Count 269 X10^3/uL (150-400); Red Blood Cell Count 4.68 X10^6/uL (4.5-5.9); White Blood Cell Count 6.9 X10^3/uL (4.5-11.0)
[2019-07-11 15:53] LABS: Culture Indicated Urine Cult Not Indicated; Urine Comments Microscopic Normal
[2019-07-11 17:19] LABS: Alanine Aminotransferase 14 IU/L (21-72); Albumin 4.5 g/dL (3.5-5.0); Albumin Globulin Ratio 1.8 (1.0-2.8); Alkaline Phosphatase 71 U/L (38-126); Aspartate Aminotransferase 27 IU/L (17-59); Bilirubin Total 0.9 mg/dL (0.2-1.3); Blood Urea Nitrogen 29 mg/dL (9-20); Calcium 10.9 mg/dL (8.4-10.2); Carbon Dioxide 29 mmol/L (22-32); Chloride 101 mmol/L (98-107); Estimated Glomerular Filt Rate > 60.0 mL/min (>60); Globulin 2.5 g/dL (1.7-4.1); Glucose 102 mg/dL (80-110); HEMOLYSIS < 15 (0-50); Potassium 4.4 mmol/L (3.4-5.1); Sodium 141 mmol/L (137-145)
[2019-07-11 17:49] LABS: TSH w/ Reflex to FT4 2.68 uIU/mL (0.47-4.68)
== END ==
PROVIDERS: PCP Family Medicine; Visit Provider Family Medicine
DX: R44.3 Hallucinations, unspecified (principal)
CPT/HCPCS: 36415; 80053; 81001; 84443; 85025

== ENCOUNTER → 2019-07-17 09:09 | Outpatient (CLI) | payer MEDICARE, BC, SELFPAY ==
[2019-07-20 15:18] LABS: Ionized Calcium 5.5 mg/dL (4.8-5.6)
== END ==
PROVIDERS: PCP Family Medicine; Visit Provider Family Medicine
DX: E83.52 Hypercalcemia (principal)
CPT/HCPCS: 36415; 82330

== ENCOUNTER → 2019-09-14 12:07 | Outpatient (CLI) | payer MEDICARE, BC, SELFPAY ==
[2019-09-14 14:21] LABS: Bacteria Urine None Seen; RBC Urine None Seen (0-5/HPF); WBC Urine None Seen (0-5/HPF)
[2019-09-14 14:36] LABS: Appearance Urine UA CLEAR; Bilirubin Urine UA NEGATIVE (NEGATIVE); Color Urine UA YELLOW; Glucose Urine UA NEGATIVE (Negative); Ketones Urine UA TRACE (NEGATIVE); Leukocyte Esterase Urine UA NEGATIVE (NEGATIVE); Nitrite Urine UA NEGATIVE (Negative); Occult Blood Urine UA NEGATIVE (Negative); Protein Urine UA NEGATIVE (Negative); Urobilinogen Urine UA 0.2 E.U./dL (0.2)
[2019-09-14 14:56] LABS: Culture Indicated Urine Cult Not Indicated; Squamous Epithelial Cell Urine 0-1 /HPF (0-5/HPF)
== END ==
PROVIDERS: PCP Family Medicine; Visit Provider Nurse Practitioner Family
DX: R30.0 Dysuria (principal)
CPT/HCPCS: 81001

== ENCOUNTER 2019-11-21 08:38 | Emergency (ER) | payer MEDICARE, BC, SELFPAY ==
[2019-11-21 08:45] VITALS: BP 121/60; PULSE 61; RESP 18; TEMP 36.3; O2SAT 100
--- NOTE | 2019-11-21 09:08 | PC.NURSE ---
pt lives at [facility] and family brought him into the ED.
--- NOTE | 2019-11-21 09:11 | DI.CT.S_ITS ---
PROCEDURE: CT HEAD/BRAIN WO CON INDICATIONS: unwitnessed fall, abrasion on apex of head on pradaxa, TECHNIQUE: Noncontrast 4.5 mm thick angled axial sections acquired from the foramen magnum to the vertex, with coronal and sagittal reformats. For radiation dose reduction, the following was used: automated exposure control, adjustment of mA and/or kV according to patient size. COMPARISON: [facility], CT, CT HEAD/BRAIN WO CON, 03/04/2019, 17:47. FINDINGS: Image quality: Excellent. CSF spaces: Basal cisterns are patent. No extra-axial fluid collections. The ventricles are symmetric in size and shape. Brain: No intracranial bleeds or masses. There is cerebral volume loss for age, with resultant ventricular and sulcal prominence. There are periventricular and deep white matter chronic small vessel ischemic changes. There is intracranial internal carotid artery atherosclerosis. Skull and face: Calvarium and visualized facial bones appear intact, without suspicious lesions. Sinuses: Visualized sinuses and mastoids are clear. IMPRESSION: Unremarkable head CT for patient age. No evidence of acute stroke, hemorrhage, or mass. Dictated by: Stanton Beasley M.D. on 11/21/2019 at 10:27 Approved by: Stanton Beasley M.D. on 11/21/2019 at 10:28
--- NOTE | 2019-11-21 09:12 | DI.CT.S_ITS ---
PROCEDURE: CT CERVICAL SPINE WO CON INDICATIONS: unwitnessed fall, Parkinsons dementia, head and neck injury TECHNIQUE: Noncontrast 3 mm thick sections acquired from the skull base to the T4 level. Sagittal and coronal reformats were then constructed. For radiation dose reduction, the following was used: automated exposure control, adjustment of mA and/or kV according to patient size. COMPARISON: [facility], CT, CT HEAD/BRAIN WO CON, 11/21/2019, 9:18. FINDINGS: Image quality: Excellent. Bones: No fractures or dislocations. Visualized superior ribs are intact. There is 4 mm of anterolisthesis of C4 on C5 level that has significant facet hypertrophy. There is associated posterior disc extrusion which is predominantly extending superiorly behind C4, of uncertain chronicity. There may be mild canal stenosis. There is question mild widening of the disc space anteriorly. There is no anterior soft tissue swelling. There is generalized spondylitic change. There is canal stenosis at C6 and C6-C7. Soft tissues: Prevertebral soft tissues are normal in thickness. No paravertebral hematomas. No apical pneumothoraces. IMPRESSION: 1. No evidence of acute cervical fracture or dislocation or prevertebral soft tissue swelling. 2. Diffuse spondylitic change. 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 3. 4 mm of anterolisthesis of C4 on C5 associated with a small disc extrusion and possible widening of the anterior aspect of the disc space. This occurs in an area of severe facet arthropathy. Question ligamentous laxity. Comment: Consider flexion and extension views of the cervical spine versus cervical MRI. Comment: Findings were discussed with Dr. Quiroz at the time of study dictation on 11/21/19 at 1017 hrs.. Dictated by: Stanton Beasley M.D. on 11/21/2019 at 10:08 Approved by: Stanton Beasley M.D. on 11/21/2019 at 10:18
--- NOTE | 2019-11-21 09:15 | ED_ITS ---
HPI - Head Injury General Chief complaint: Trauma Stated complaint: fell and hit head,confusion Time Seen by Provider: 11/21/19 09:01 History of Present Illness HPI Narrative: Patient is an 83-year-old male with history of Parkinson's disease and is developing dementia with some hallucinations. He has a history of chronic atrial fibrillation for which she is on Pradaxa. The patient so metime between supper and breakfast this morning fell and struck his head and sustained an abrasion to the left posterior apex of his scalp. The patient denies any head injury headache neck pain back pain chest pain shortness of breath cough difficulty in breathing dizziness abdominal pain nausea and vomiting. Related Data Home Medications Medication Instructions Recorded Confirmed esomeprazole magnesium [Nexium] 40 mg PO DAILY #0 01/25/17 11/21/19 metoprolol succinate [Toprol XL] 50 mg PO DAILY 11/11/18 11/21/19 valerian root 500 mg capsule 500 mg PO BEDTIME PRN 09/01/19 11/21/19 Flonase Sensimist 1 spray NASAL DAILY PRN 11/21/19 11/21/19 carbidopa-levodopa 1 tab PO BEDTIME 11/21/19 11/21/19 loperamide See Rx Instructions .ROUTE 11/21/19 11/21/19 .COMPLEX MDD 8 quetiapine 12.5 mg PO QPM 11/21/19 11/21/19 rasagiline 1 mg PO DAILY 11/21/19 11/21/19 tamsulosin 0.4 mg PO QPM 11/21/19 11/21/19 Previous Rx's Medication Instructions Recorded dabigatran etexilate 150 mg capsule 150 mg PO BID #60 cap 05/12/19 polyethylene glycol 3350 17 17 gram PO DAILY #510 gram 05/12/19 gram/dose oral powder carbidopa ER 48.75 mg-levodopa 195 1 cap PO TID #90 cap 06/13/19 mg capsule,extended release donepezil 10 mg tablet 10 mg PO DAILY #30 tab 07/04/19 cyclobenzaprine 5 mg PO TID PRN #10 tab 11/21/19 Allergies Allergy/AdvReac Type Severity Reaction Status Date / Time nitrofurantoin AdvReac Verified 11/10/19 13:30 [From Macrobid] Review of Systems Review of Systems ROS Unobtainable: All systems reviewed & are unremarkable except as noted in HPI and below Patient History Medical History Atrial fibrillation (Chronic 2009) 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) Cataract (Chronic 1999) Chronic back pain (Chronic 1999) Colon polyps (Resolved 2001) Dementia (Acute) Diverticular disease (Chronic 2006) Esophageal ring (Chronic 1999) Esophageal web (Chronic 1999) Fecal incontinence (Chronic 2014) GERD (gastroesophageal reflux disease) (Chronic 1999) Gout (Chronic 1969) Hayfever (Chronic 1999) Hearing loss (Chronic 1999) Herpes (Chronic 1982) Hypertension (Chronic 2007) Melanoma (Resolved 2001) Parkinson's disease (Chronic 2010) Polymyalgia rheumatica (Chronic 2010) Recurrent sinusitis (Resolved 1999) Skin cancer (Resolved 2006) Sleep apnea (Chronic 2010) Tinnitus (Chronic 2015) Urinary incontinence (Chronic 2014) Surgical History Anesthesia (Resolved) History of sinus surgery (Resolved 1989) Status post hernia repair (Resolved 1999) Family History Grandfather Heart disease Grandmother Heart disease Father Alcoholism Mother Alzheimer's disease Grandfather MVA (motor vehicle accident) Grandmother No problems noted. Social History Smoking Status: Former smoker Smoking Status: Former smoker alcohol intake frequency: 0-2 drinks per day Substance Use Type: does not use Exam Narrative Exam Narrative: PHYSICAL EXAM: CONSTITUTIONAL: Awake, Alert, Oriented, Coherent, Cooperative in NAD. Does not appear toxic or ill. The patient has a blunted flat affect slow to respond but responds appropriately. He is braided [place] has a pill-rolling tremor in his left hand. The patient is kyphotic with slumped over but walks with a shuffling gait from the bathroom to his bed. HEAD: No traumatic deformity of the patient's head but he has a linear abrasion over the apex of his scalp over his left parietal scalp. The abrasion is superficial scabbed over and not actively bleeding and without erythema. EENT: PERRL, FROM of eyes, no discharge, no nystagmus No drainage from the ears, Tympanic membranes intact bilaterally, partially occluded external auditory canals with cerumen. No epistaxis or nasal drainage Oral mucosa is moist and pink, posterior pharynx is without erythema or exudate. NECK: Supple, no obvious JVD, Trachea is midline without stridor, no palpable LN or masses. SPINE: No gross deformity, no palpable tenderness of the cervical, thoracic, lumbar or sacral spine. No CVA tenderness. THORAX: No deformity, retractions, chest wall tenderness, subcutaneous air or crepitice. Increased AP diameter. LUNGS: Symmetrical decreased breath sounds without respiratory distress. There was no wheezing or rhonchi appreciated. HEART: Distant muffled heart tones irregular irregular questionable variable S1-S2 I did not appreciate a heart murmur. The irregularity is slight. ABDOMEN: Soft, non-tender, normal bowel sounds without guarding, rebound, rigidity or palpable mass EXTREMITIES: Swollen legs left greater than right slight pitting edema no calf tenderness or cyanosis. SKIN: No rash, bruising, petechiae or purpura. NEURO: Patient is awake with bradykinesia blunted affect slow to respond a tremor in his left hand. Cranial nerves are intact bilaterally with no focal facial asymmetry. The patient moves all 4 extremities. The patient is ambulatory with a shuffling slow gait. Initial Vital Signs Initial Vital Signs: Vital Signs Temperature 97.4 F L 11/21/19 08:45 Pulse Rate 61 11/21/19 08:45 Respiratory Rate 18 11/21/19 08:45 Blood Pressure 121/60 11/21/19 08:45 Pulse Oximetry 100 11/21/19 08:45 Course Course Course Narrative: 1023: The radiologist called and stated that the patient's CT of the head is negative for any fractures hemorrhage or evidence of a stroke. However, reconstruction of the cervical spine reveals that the patient has a 4 m m spondylolisthesis of C4 on C5 with marked C4 facet joint arthropathy. There is also widening of the space and extrusion of the C4 disc space posteriorly. Flexion-extension x-rays are recommended or an MRI. An MRI of the cervical spine has been ordered. 1331 the patient's MRI reveals or multiple foraminal narrowing but nothing acute at this time. There is [id number] cervical spine stenosis but nothing acute and a new. The changes identified on CT scan appear to be chronic. The patient will be discharged home. Orders Ordered: ED Orders 11/21/19 09:11 CT head/brain wo con Stat EKG-12 Lead Stat 11/21/19 09:12 CT cervical spine wo con Stat 11/21/19 09:56 Complete Blood Count AUTO DIFF Stat Comprehensive Metabolic Panel Stat 11/21/19 10:20 MR cervical spine wo con Stat Vital Signs Vital signs: Vital Signs - 8 hr 11/21/19 08:45 11/21/19 13:00 Temperature 97.4 F L Pulse Rate 61 47 L Respiratory Rate 18 Blood Pressure 121/60 Blood Pressure [Left Arm] 143/61 H Pulse Oximetry 100 100 MDM - Head Injury Lab Data Result diagrams: 11/21/19 09:56 11/21/19 09:56 Labs: Lab Results 11/21/19 11/21/19 Range/Units 09:56 09:56 WBC 5.7 (4.5-11.0) X10^3/uL RBC 4.39 L (4.5-5.9) X10^6/uL Hgb 13.9 (13.5-17.5) g/dL Hct 41.0 (41-53) % MCV 93.3 (80-100) fL MCH 31.7 (26-34) PG MCHC 33.9 (30-36) % RDW 13.7 (11.6-14.8) % Plt Count 198 (150-400) X10^3/uL Neut % (Auto) 68.6 (50-75) % Lymph % (Auto) 20.5 L (25-40) % Morris % (Auto) 8.7 (3-14) % Eos % (Auto) 1.9 L (2-4) % Baso % (Auto) 0.3 (0-2) % Neut # (Auto) 3900 (9391-4117) /uL Lymph # (Auto) 1200 (2428-7514) /uL Morris # (Auto) 500 (0-900) /uL Eos # (Auto) 100 (0-450) /uL Baso # (Auto) 0 (0-100) /uL Sodium 140 (137-145) mmol/L Potassium 4.0 (3.4-5.1) mmol/L Chloride 106 (98-107) mmol/L Carbon Dioxide 28 (22-32) mmol/L BUN 24 H (9-20) mg/dL Creatinine 0.90 (0.66-1.25) mg/dL Estimated GFR > 60.0 (>60) mL/min BUN/Creatinine Ratio 26.7 H (6-22) Glucose 98 (80-110) mg/dL Calcium 10.1 (8.4-10.2) mg/dL Total Bilirubin 0.8 (0.2-1.3) mg/dL AST 20 (17-59) IU/L ALT 6 (<50) IU/L Alkaline Phosphatase 60 (38-126) U/L Total Protein 6.5 (6.3-8.2) g/dL Albumin 3.8 (3.5-5.0) g/dL Globulin 2.7 (1.7-4.1) g/dL Albumin/Globulin Ratio 1.4 (1.0-2.8) Point of Care Testing Glucose POC 87 ECG Data Attestation: I personally reviewed and interpreted this ECG as follows: Interpretation: The patient's EKG reveals a sinus bradycardia with a ventricular rate of 43. The p.r.n. interval is normal at 196 milliseconds. The QRS is prolonged and 114 milliseconds. QTC is normal at 391 milliseconds. Left axis deviation. The patient has a Q-wave in lead V1 yes there are no inverted T- waves appreciated. T-waves are flat in III. There are nonspecific ST segment changes no diagnostic ST segment changes. Discharge Plan Departure Patient Disposition: Home Clinical Impression: Parkinson's disease, Paroxysmal atrial fibrillation Fall Qualifiers: Encounter type: initial encounter Qualified Code(s): W19.XXXA - Unspecified fall, initial encounter Head injury Qualifiers: Encounter type: initial encounter Qualified Code(s): S09.90XA - Unspecified injury of head, initial encounter Discharge Date/Time: 11/21/19 14:02 Instructions: DI for Concussion, How to Prevent Falls, DI for Closed Head Injury Activity Restrictions/Additional Instructions: For any headache pain and discomfort the patient is able to use Tylenol/acetaminophen 500 mg every 4- 6 hours or 1000 mg every 6 hours. For muscle spasms he can use Flexeril 5 mg 3 times a day as needed. If any new problems developing get worse he needs to be re-evaluated by his primary care physician in 3-4 days. Prescriptions: New cyclobenzaprine 5 mg tablet 5 mg PO TID PRN (Reason: muscle spasm) Qty: 10 RF: 0 No Action polyethylene glycol 3350 17 gram/dose powder 17 gram PO DAILY Qty: 510 RF: 12 dabigatran etexilate 150 mg capsule 150 mg PO BID Qty: 60 RF: 12 valerian root 500 mg capsule 500 mg PO BEDTIME PRN (Reason: Insomnia) RF: 0 esomeprazole magnesium [Nexium] 40 MG capsule,delayed release(DR/EC) 40 mg PO DAILY Qty: 0 RF: 0 Rytary 48.75-195 mg capsule, extended release 1 cap PO TID Qty: 90 RF: 0 donepezil [Aricept] 10 mg tablet 10 mg PO DAILY Qty: 30 RF: 6 quetiapine 25 mg tablet 12.5 mg PO QPM RF: 0 rasagiline 1 mg tablet 1 mg PO DAILY RF: 0 tamsulosin 0.4 mg capsule 0.4 mg PO QPM RF: 0 carbidopa-levodopa 25-100 mg tablet 1 tab PO BEDTIME RF: 0 Flonase Sensimist 27.5 mcg/actuation spray,suspension 1 spray NASAL DAILY PRN (Reason: Allergy Symptoms) RF: 0 loperamide 2 mg capsule See Rx Instructions .ROUTE .COMPLEX MDD 8 RF: 0 metoprolol succinate [Toprol XL] 50 mg tablet extended release 24 hr 50 mg PO DAILY RF: 0 Referrals: Julia Keith MD [Primary Care Provider] -
--- NOTE | 2019-11-21 09:45 | PC.NURSE ---
with c-collar on.
[2019-11-21 10:04] LABS: Add Manual Diff / Slide Review NO; Basophils Absolute Auto 0 /uL (0-100); Basophils Percent Auto 0.3 % (0-2); Eosinophils Absolute Auto 100 /uL (0-450); Eosinophils Percent Auto 1.9 % (2-4); Hemoglobin 13.9 g/dL (13.5-17.5); Lymphocytes Absolute Auto 1200 /uL (1100-4500); Lymphocytes Percent Auto 20.5 % (25-40); Mean Corpuscular HGB Conc 33.9 % (30-36); Mean Corpuscular Hemoglobin 31.7 PG (26-34); Mean Corpuscular Volume 93.3 fL (80-100); Monocytes Absolute Auto 500 /uL (0-900); Monocytes Percent Auto 8.7 % (3-14); Neutrophils Absolute Auto 3900 /uL (1500-7000); Neutrophils Percent Auto 68.6 % (50-75); Platelet Count 198 X10^3/uL (150-400); Red Blood Cell Count 4.39 X10^6/uL (4.5-5.9); Red Cell Distribution Width 13.7 % (11.6-14.8); White Blood Cell Count 5.7 X10^3/uL (4.5-11.0)
[2019-11-21 10:15] LABS: Alanine Aminotransferase 6 IU/L (<50); Albumin 3.8 g/dL (3.5-5.0); Albumin Globulin Ratio 1.4 (1.0-2.8); Alkaline Phosphatase 60 U/L (38-126); Aspartate Aminotransferase 20 IU/L (17-59); BUN Creatinine Ratio 26.7 (6-22); Bilirubin Total 0.8 mg/dL (0.2-1.3); Blood Urea Nitrogen 24 mg/dL (9-20); Calcium 10.1 mg/dL (8.4-10.2); Carbon Dioxide 28 mmol/L (22-32); Chloride 106 mmol/L (98-107); Estimated Glomerular Filt Rate > 60.0 mL/min (>60); Globulin 2.7 g/dL (1.7-4.1); Glucose 98 mg/dL (80-110); HEMOLYSIS < 15 (0-50); Sodium 140 mmol/L (137-145); Total Protein 6.5 g/dL (6.3-8.2)
--- NOTE | 2019-11-21 10:20 | DI.MRI.S_ITS ---
PROCEDURE: MR CERVICAL SPINE WO CON INDICATIONS: unwitnessed fall, C4 posterior extruded disc and facet artho TECHNIQUE: Noncontrast sagittal T1 spin echo and T2 fast spin echo, sagittal STIR, foraminal oblique sagittal T2 fast spin echo, and axial gradient echo or T2 fast spin echo through the cervical spine. COMPARISON: None. FINDINGS: Image quality: Excellent. Alignment and Curvature: There is anterolisthesis of C4 on C5 measuring 4 mm, degenerative in nature, secondary to exuberant facet hypertrophy/arthropathy. Trace degenerative anterolisthesis of C7 on T1. Bone Marrow: Marrow demonstrates normal overall signal. No abnormal increased signal in the ligamentous structures or muscular structures. Spinal Cord: Visualized spinal cord has normal size and signal. No cerebellar tonsillar herniation. Paraspinous Soft Tissues: No paravertebral masses. Prevertebral soft tissues are normal in thickness. C2-C3: No canal stenosis. Moderate to severe right foraminal narrowing and moderate left foraminal narrowing with flattening deformity on the bilateral C3 nerve roots secondary to a combination of uncovertebral joint hypertrophy and facet hypertrophy. C3-C4: Diffuse disc bulge. No significant canal stenosis. Prominent bilateral facet hypertrophy and uncovertebral joint hypertrophy with severe lower foraminal narrowing and impingement on the bilateral C4 nerve roots in the foramina. C4-C5: 4 mm anterolisthesis of C4 on C5. Moderate diffuse disc bulge with mild superior central disc extrusion behind the C4 vertebral body. Exuberant facet hypertrophy. Mild canal stenosis. Severe bilateral foraminal narrowing with bilateral C5 nerve root impingement. C5-C6: Severe disc height loss. No significant canal stenosis. Bilateral uncovertebral joint hypertrophy and facet hypertrophy. Moderate right foraminal narrowing and severe left foraminal narrowing with flattening of the right C6 nerve root sleeve and impingement of the left C6 nerve. C6-C7: Severe disc height loss. Diffuse posterior disc plus osteophyte, eccentric to the right. Moderate canal stenosis and severe right lateral recess stenosis. Bilateral uncovertebral joint hypertrophy and facet hypertrophy. Bilateral severe foraminal narrowing with impingement on the bilateral C7 nerve roots. C7-T1: No canal stenosis or foraminal stenosis. IMPRESSION: 1. Findings at C4-C5 appear to be chronic, with 4 mm of anterolisthesis on the basis of exuberant facet arthropathy. 2. There is no bone marrow signal abnormality or ligamentous signal abnormality. Cervical cord has normal caliber, contour, and signal characteristics. 3. Canal stenosis is mild at C4-C5 and moderate at C6-C7. 4. Significant multilevel bilateral foraminal narrowing as described above. Dictated by: Stanton Beasley M.D. on 11/21/2019 at 13:11 Approved by: Stanton Beasley M.D. on 11/21/2019 at 13:22
--- NOTE | 2019-11-21 11:39 | PC.NURSE ---
pt has afib and heart rate is down to 40-47, printed hard copy placed in chart.
[2019-11-21 13:00] VITALS: BP 143/61; PULSE 47; O2SAT 100
== END 2019-11-21 14:02 | disposition home or self-care (01) ==
PROVIDERS: Emergency Provider Emergency Medicine; PCP Family Medicine
DX: S09.90XA Unspecified injury of head, initial encounter (principal); G20 Parkinson's disease; F02.80 Dementia in other diseases classified elsewhere, unspecified severity, without behavioral disturbance, psychotic disturbance, mood disturbance, and anxiety; I48.0 Paroxysmal atrial fibrillation; W18.00XA Striking against unspecified object with subsequent fall, initial encounter
CPT/HCPCS: 36415; 70450; 72125; 72141; 80053; 82962; 85025; 93005; 99284; 99285

== ENCOUNTER → 2019-12-02 12:34 | Outpatient (ROUT) | payer MEDICARE, BC, SELFPAY ==
[2019-12-02 12:38] LABS: Bacteria Urine None Seen; RBC Urine None Seen (0-5/HPF); WBC Urine None Seen (0-5/HPF)
[2019-12-02 12:43] LABS: Bilirubin Urine UA NEGATIVE (NEGATIVE); Color Urine UA YELLOW; Glucose Urine UA NEGATIVE (Negative); Ketones Urine UA TRACE (NEGATIVE); Leukocyte Esterase Urine UA NEGATIVE (NEGATIVE); Nitrite Urine UA NEGATIVE (Negative); Occult Blood Urine UA NEGATIVE (Negative); Protein Urine UA NEGATIVE (Negative); Specific Gravity Urine UA >=1.030 (1.000-1.035); Urobilinogen Urine UA 0.2 E.U./dL (0.2); pH Urine UA 5.5 (4.5-8.0)
[2019-12-02 12:47] LABS: Appearance Urine UA Slightly Cloudy
[2019-12-02 13:47] LABS: Amorphous Sediment Urine 1+; Calcium Oxalate Crystals Urine Few; Culture Indicated Urine Cult Not Indicated; Mucus Urine 1+ (Negative)
== END ==
PROVIDERS: PCP Family Medicine; Visit Provider Family Medicine
DX: R30.0 Dysuria (principal)
CPT/HCPCS: 81001

== ENCOUNTER 2019-12-03 09:38 | Emergency (ER) | payer MEDICARE, BC, SELFPAY ==
[2019-12-03 10:03] VITALS: BP 125/60; PULSE 54; RESP 16; TEMP 36.2; O2SAT 100
--- NOTE | 2019-12-03 10:12 | ED_ITS ---
HPI - Fall General Chief Complaint: Fall Stated Complaint: FALL LAST NIGHT Time Seen by Provider: 12/03/19 09:40 Source: patient and family Mode of arrival: Ambulatory Limitations: no limitations History of Present Illness HPI Narrative: The patient is an 83-year-old male with history of Parkinson's disease developing dementia and hallucinations presenting after ground level fall last night. He is here with his daughter who states that he was found on the ground last evening. He was not there very long. No acute injury. He was actually seen evaluated here on 11/21/2019, he had blood work head CT MRI of the cervical spine, the daughter is working on getting him into [facility]. At this time she she does not feel like he needs any imaging. She is here only at the request of the living facility. He has no complaints he is no sign of trauma. He is able to follow commands. MD complaint: fall Onset (ago): hour(s) Fall from: standing Related Data Home Medications Medication Instructions Recorded Confirmed esomeprazole magnesium [Nexium] 40 mg PO DAILY #0 01/25/17 11/21/19 metoprolol succinate [Toprol XL] 50 mg PO DAILY 11/11/18 11/21/19 valerian root 500 mg capsule 500 mg PO BEDTIME PRN 09/01/19 11/21/19 Flonase Sensimist 1 spray NASAL DAILY PRN 11/21/19 11/21/19 carbidopa-levodopa 1 tab PO BEDTIME 11/21/19 11/21/19 loperamide See Rx Instructions .ROUTE 11/21/19 11/21/19 .COMPLEX MDD 8 quetiapine 12.5 mg PO QPM 11/21/19 11/21/19 rasagiline 1 mg PO DAILY 11/21/19 11/21/19 tamsulosin 0.4 mg PO QPM 11/21/19 11/21/19 Previous Rx's Medication Instructions Recorded dabigatran etexilate 150 mg capsule 150 mg PO BID #60 cap 05/12/19 polyethylene glycol 3350 17 17 gram PO DAILY #510 gram 05/12/19 gram/dose oral powder carbidopa ER 48.75 mg-levodopa 195 1 cap PO TID #90 cap 06/13/19 mg capsule,extended release donepezil 10 mg tablet 10 mg PO DAILY #30 tab 07/04/19 cyclobenzaprine 5 mg PO TID PRN #10 tab 11/21/19 Allergies Allergy/AdvReac Type Severity Reaction Status Date / Time nitrofurantoin AdvReac Verified 11/10/19 13:30 [From Macrobid] Review of Systems Review of Systems ROS Unobtainable: All systems reviewed & are unremarkable except as noted in HPI and below Constitutional Constitutional: Reports as per HPI and Reports frequent falls Cardiovascular Cardiovascular: Denies chest pain, Denies irregular heart rhythm, Denies lightheadedness, Denies palpitations, Denies dyspnea, Denies dyspnea on exertion and Denies orthopnea Respiratory Respiratory: Denies cough, Denies dyspnea, Denies dyspnea on exertion and Denies wheezing Gastrointestinal Gastrointestinal: Denies abdominal pain, Denies change in bowel habits, Denies diarrhea, Denies nausea and Denies vomiting Genitourinary Genitourinary: Denies hematuria, Denies flank pain, Denies urinary incontinence and Denies urinary urgency Musculoskeletal Musculoskeletal: Denies back pain, Denies muscle weakness, Denies numbness and Denies tingling Integumentary/Breasts Skin/Breast: Denies pruritus, Denies erythema, Denies rash and Denies wounds Neurologic Neurologic: Reports frequent falls, Denies numbness and Denies tingling Endocrine Endocrine: Denies palpitations Allergic/Immunologic Allergic/Immunologic: Denies wheezing Patient History Social History Smoking Status: Former smoker Smoking Status: Former smoker alcohol intake frequency: 0-2 drinks per day Substance Use Type: does not use Exam Initial Vital Signs Initial Vital Signs: Vital Signs Temperature 97.1 F L 12/03/19 10:03 Pulse Rate 54 L 12/03/19 10:03 Respiratory Rate 16 12/03/19 10:03 Blood Pressure 125/60 12/03/19 10:03 Pulse Oximetry 100 12/03/19 10:03 GENERAL: Alert pleasant elderly male no acute distress HEENT: Head atraumatic,EOMI, pupils reactive NECK: No cervical tenderness full range of motion CARDIOVASCULAR: Regular rate and rhythm without murmurs, rubs or gallops. RESPIRATORY: Breath sounds equal bilaterally, no wheezes rales or rhonchi. ABDOMEN: Soft, nontender. Normoactive bowel sounds all 4 quadrants. No guarding or rebound. EXTREMITIES: Normal range of motion, no clubbing or edema. 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 Course Vital Signs Vital signs: Vital Signs - 8 hr 12/03/19 10:03 12/03/19 10:48 Temperature 97.1 F L Pulse Rate 54 L 54 L Respiratory Rate 16 16 Blood Pressure 125/60 125/60 Pulse Oximetry 100 100 MDM - Fall MDM Narrative Medical decision making narrative: Discussion with daughter at bedside. At this time we discussed repeating blood work and noncontrasted head CT. At this time she states that he is at baseline they are looking at other living facilities and arrangements. She does not want any further testing done she agrees to take him back to [facility] Discharge Plan Departure Patient Disposition: Home Clinical Impression: Fall Qualifiers: Encounter type: initial encounter Qualified Code(s): W19.XXXA - Unspecified fall, initial encounter Discharge Date/Time: 12/03/19 10:48 Instructions: How to Prevent Falls Activity Restrictions/Additional Instructions: *You have been diagnosed with fall *What to do: At this time elected no imaging or blood work. He appears at baseline. Recommend continuing to try for assisted living or memory care *Continue to take medications as directed *Follow up with your primary care provider in 2-3 days *Return to ER if you should have increased confusion recurrent or multiple falls, difficulty speaking weakness in extremities or any new, worsening or concerning symptoms Prescriptions: No Action polyethylene glycol 3350 17 gram/dose powder 17 gram PO DAILY Qty: 510 RF: 12 dabigatran etexilate 150 mg capsule 150 mg PO BID Qty: 60 RF: 12 valerian root 500 mg capsule 500 mg PO BEDTIME PRN (Reason: Insomnia) RF: 0 esomeprazole magnesium [Nexium] 40 MG capsule,delayed release(DR/EC) 40 mg PO DAILY Qty: 0 RF: 0 Rytary 48.75-195 mg capsule, extended release 1 cap PO TID Qty: 90 RF: 0 donepezil [Aricept] 10 mg tablet 10 mg PO DAILY Qty: 30 RF: 6 quetiapine 25 mg tablet 12.5 mg PO QPM RF: 0 rasagiline 1 mg tablet 1 mg PO DAILY RF: 0 tamsulosin 0.4 mg capsule 0.4 mg PO QPM RF: 0 cyclobenzaprine 5 mg tablet 5 mg PO TID PRN (Reason: muscle spasm) Qty: 10 RF: 0 carbidopa-levodopa 25-100 mg tablet 1 tab PO BEDTIME RF: 0 Flonase Sensimist 27.5 mcg/actuation spray,suspension 1 spray NASAL DAILY PRN (Reason: Allergy Symptoms) RF: 0 loperamide 2 mg capsule See Rx Instructions .ROUTE .COMPLEX MDD 8 RF: 0 metoprolol succinate [Toprol XL] 50 mg tablet extended release 24 hr 50 mg PO DAILY RF: 0 Referrals: Julia Keith MD [Primary Care Provider] -
[2019-12-03 10:48] VITALS: BP 125/60; PULSE 54; RESP 16; O2SAT 100
== END 2019-12-03 10:48 | disposition home or self-care (01) ==
PROVIDERS: Emergency Provider Emergency Medicine; PCP Family Medicine
DX: F03.90 Unspecified dementia, unspecified severity, without behavioral disturbance, psychotic disturbance, mood disturbance, and anxiety (principal); W19.XXXA Unspecified fall, initial encounter; Z91.81 History of falling
CPT/HCPCS: 99281

== ENCOUNTER 2019-12-07 18:23 | Inpatient (IN) | payer MEDICARE, BC, SELFPAY ==
[2019-12-07] VITALS (9 sets, daily range): BP systolic 145–184; BP diastolic 63–79; PULSE 45–63; RESP 14–22; TEMP 36.7; O2SAT 97–100; BMI 23.9
--- NOTE | 2019-12-07 18:23 | DI.CT.S_ITS ---
PROCEDURE: CT STROKE INDICATIONS: unresponsive / CODE STROKE TECHNIQUE: Noncontrast 4.5 mm thick angled axial sections acquired from the foramen magnum to the vertex, with coronal reformats. For radiation dose reduction, the following was used: automated exposure control, adjustment of mA and/or kV according to patient size. COMPARISON: None. FINDINGS: Image quality: Excellent. CSF spaces: Basal cisterns are patent. No extra-axial fluid collections. Ventricles are normal in size and shape. Brain: No midline shift. No intracranial masses or hemorrhage. No area of hypodensity in a large vascular distribution to suggest acute infarction. Periventricular hypodensity consistent with chronic microvascular ischemic change. Mild distal ICA intracranial atherosclerotic calcification. Age-related parenchymal loss. Mild asymmetric right brain loss in the right parietal region. Skull and face: Calvarium and visualized facial bones are intact, without suspicious lesions. Sinuses: Because of thickening or polyp in the left naris inferior to the inferior turbinate partially visualized. Visualized sinuses and mastoids are clear. IMPRESSION: No acute intracranial hemorrhage. No acute intracranial abnormality identified. Chronic microvascular ischemic disease. This study fulfills neurological imaging criteria for inclusion or exclusion of acute stroke therapies based on available published neurological imaging guidelines. Comment: Findings were discussed with ED attending physician at 6:36 PM. Dictated by: Raf Cruz M.D. on 12/07/2019 at 18:34 Approved by: Raf Cruz M.D. on 12/07/2019 at 18:40
[2019-12-07 18:38] LABS: Add Manual Diff / Slide Review NO; Basophils Absolute Auto 0 /uL (0-100); Basophils Percent Auto 0.4 % (0-2); Eosinophils Absolute Auto 100 /uL (0-450); Eosinophils Percent Auto 2.7 % (2-4); Hematocrit 44.1 % (41-53); Hemoglobin 14.7 g/dL (13.5-17.5); Lymphocytes Absolute Auto 1400 /uL (1100-4500); Lymphocytes Percent Auto 24.4 % (25-40); Mean Corpuscular HGB Conc 33.3 % (30-36); Mean Corpuscular Hemoglobin 31.5 PG (26-34); Mean Corpuscular Volume 94.6 fL (80-100); Monocytes Absolute Auto 500 /uL (0-900); Monocytes Percent Auto 8.7 % (3-14); Neutrophils Absolute Auto 3600 /uL (1500-7000); Neutrophils Percent Auto 63.8 % (50-75); Platelet Count 222 X10^3/uL (150-400); Red Blood Cell Count 4.66 X10^6/uL (4.5-5.9); Red Cell Distribution Width 13.6 % (11.6-14.8); White Blood Cell Count 5.6 X10^3/uL (4.5-11.0)
[2019-12-07] MEDS: NALOXONE 1 MG/ML SYRINGE 2 MG IV (18:38)
[2019-12-07 18:45] LABS: INR 1.2 (0.9-1.3); Prothrombin Time 13.4 SECONDS (10.1-12.7)
[2019-12-07 18:48] LABS: PTT Partial Thromboplastin Tim 58 SECONDS (26.4-36.2)
[2019-12-07 18:51] LABS: Alanine Aminotransferase 8 IU/L (<50); Albumin 3.9 g/dL (3.5-5.0); Albumin Globulin Ratio 1.3 (1.0-2.8); Alkaline Phosphatase 66 U/L (38-126); Aspartate Aminotransferase 39 IU/L (17-59); Bilirubin Total 0.6 mg/dL (0.2-1.3); Blood Urea Nitrogen 23 mg/dL (9-20); Calcium 10.5 mg/dL (8.4-10.2); Carbon Dioxide 28 mmol/L (22-32); Chloride 107 mmol/L (98-107); Creatine Kinase 115 U/L (55-170); Estimated Glomerular Filt Rate > 60.0 mL/min (>60); Glucose 116 mg/dL (80-110); HEMOLYSIS < 15 (0-50); Sodium 143 mmol/L (137-145); Total Protein 6.9 g/dL (6.3-8.2)
[2019-12-07 18:52] LABS: Acetaminophen < 10 ug/mL (10-30); Ethanol (ETOH) < 10 mg/dL; Salicylate < 1.0 mg/dL (<20)
[2019-12-07 19:03] LABS: Troponin I < 0.012 ng/mL (0.01-0.034)
[2019-12-07 19:06] LABS: CKMB % Relative Index 1.1 % (1.5-5.0); Creatine Kinase MB 1.21 ng/mL (<2.37)
--- NOTE | 2019-12-07 19:12 | ED_ITS ---
HPI - General Adult General Chief complaint: Unresponsive Stated complaint: unresponsive Time Seen by Provider: 12/07/19 18:23 Source: EMS Mode of arrival: EMS Limitations: altered mental status History of Present Illness HPI narrative: 84M former smoker with history parkinsons and afib presents from home with sudden onset unresponsiveness at 1730. No focal neurologic findings, pinpoint pupils which did not respond to narcan. He takes no opioids. He had a normal day and was in his normal state of health. He had said to his son that he is sorry for messing up his life just prior to this happening. Per family he is a DNR, but they do not have a POLST form. He was brought in by EMS and activated as a code stroke and taken directly to CT. Daughter (DPOA) states he is DNR/DNI. States he's recently had increasing hallucinations and 2 days ago his seroquel was increased. He had not recently taken any new medications prior to his change in behavior tonight. Onset (ago): minute(s) Severity: moderate Treatments prior to arrival: none Related Data Home Medications Medication Instructions Recorded Confirmed esomeprazole magnesium [Nexium] 40 mg PO DAILY #0 01/25/17 12/07/19 metoprolol succinate [Toprol XL] 50 mg PO DAILY 11/11/18 12/07/19 carbidopa-levodopa 1 tab PO BEDTIME 11/21/19 12/07/19 loperamide See Rx Instructions .ROUTE 11/21/19 12/07/19 .COMPLEX MDD 8 quetiapine 12.5 mg PO QPM 11/21/19 12/07/19 rasagiline 1 mg PO DAILY 11/21/19 12/07/19 tamsulosin 0.4 mg PO QPM 11/21/19 12/07/19 carbidopa-levodopa [Rytary] 1 cap PO TID 12/07/19 12/07/19 fluticasone furoate 1 spray INTRANASAL DAILY 12/07/19 12/07/19 Previous Rx's Medication Instructions Recorded polyethylene glycol 3350 17 17 gram PO DAILY #510 gram 05/12/19 gram/dose oral powder donepezil 10 mg tablet 10 mg PO DAILY #30 tab 07/04/19 Allergies Allergy/AdvReac Type Severity Reaction Status Date / Time nitrofurantoin AdvReac Verified 11/10/19 13:30 [From Macrobid] Review of Systems Review of Systems ROS Unobtainable: Unobtainable due to mental status/LOC Patient History Medical History Atrial fibrillation (Chronic 2010) 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) Cataract (Chronic 1999) Chronic back pain (Chronic 1999) Colon polyps (Resolved 2001) Dementia (Acute) Diverticular disease (Chronic 2006) Esophageal ring (Chronic 1999) Esophageal web (Chronic 1999) Fecal incontinence (Chronic 2015) GERD (gastroesophageal reflux disease) (Chronic 1999) Gout (Chronic 1969) Hayfever (Chronic 1999) Hearing loss (Chronic 1999) Herpes (Chronic 1982) Hypertension (Chronic 2007) Melanoma (Resolved 2001) Parkinson's disease (Chronic 2010) Polymyalgia rheumatica (Chronic 2010) Recurrent sinusitis (Resolved 1999) Skin cancer (Resolved 2006) Sleep apnea (Chronic 2010) Tinnitus (Chronic 2015) Urinary incontinence (Chronic 2014) Surgical History Anesthesia (Resolved) History of sinus surgery (Resolved 1989) Status post hernia repair (Resolved 1999) Family History Grandfather Heart disease Grandmother Heart disease Father Alcoholism Mother Alzheimer's disease Grandfather MVA (motor vehicle accident) Grandmother No problems noted. Social History household members: other Smoking Status: Former smoker Smoking Status: Former smoker alcohol intake frequency: 0-2 drinks per day Substance Use Type: does not use Exam Narrative Exam Narrative: GENERAL: [84] year old patient appears stated age. Well- nourished, well-developed patient, in mild distress. Unresponsive but guarding airway. HEAD: Atraumatic. Normocephalic. EYES: Pupils equal round and reactive, pinpoint. No scleral icterus. No injection or drainage. ENT: Nose without bleeding, purulent drainage. Throat without erythema, tonsillar hypertrophy or exudate. Airway patent. NECK: Trachea midline. Non tender CARDIOVASCULAR: Regular rate and rhythm without murmurs, gallops, or rubs. RESPIRATORY: Clear to auscultation. Breath sounds equal bilaterally. No wheezes, rales, or rhonchi. GASTROINTESTINAL: Abdomen soft, non-tender, nondistended. EXTREMITIES: No edema or joint tenderness. BACK: Nontender without deformity or crepitance. No flank tenderness. SKIN: No rash or erythema of visible areas patient will not participate in NIHSS Initial Vital Signs Initial Vital Signs: Vital Signs Pulse Rate 49 L 12/07/19 18:28 Respiratory Rate 16 12/07/19 18:28 Blood Pressure 167/77 H 12/07/19 18:28 Pulse Oximetry 99 12/07/19 18:28 Scores GCS [place] coma scale eye opening: To pressure [place] coma scale verbal response: None Real coma scale motor response: Localising [place] coma scale total score: 8 Citation: GCS low, but guarding airway without difficulty, beginning to respond to noxious stimuli Course Orders Ordered: ED Orders 12/07/19 18:15 Acetaminophen Stat Complete Blood Count AUTO DIFF Stat Comprehensive Metabolic Panel Stat Ethanol (ETOH) Stat Partial Thromboplastin Time Stat Prothrombin Time INR Stat Salicylate Stat Troponin & CK Cardiac Panel Stat 12/07/19 18:23 CT Stroke Stat XR chest 1V Stat EKG-12 Lead Stat 12/07/19 18:39 Ammonia (NH3) Stat Lactate (Lactic Acid) Stat Prolactin Stat 12/07/19 19:04 Urine Drug Screen, Rapid Stat 12/07/19 20:50 Urine Microscopic Stat Potassium Chloride/Dextrose/Sod Cl (Dextrose 5%-0.45%Ns W/Kcl 20meq) 1,000 mls @ 80 mls/hr IV CONT ELIZABETH Last Admin: 12/07/19 23:50 Dose: 80 mls/hr Documented by: PARIS Metoprolol Tartrate (Lopressor) 5 mg IV Q6H [facility] Naloxone HCl (Narcan) 0.2 mg IV Q2MIN PRN PRN Reason: Opiate Reversal Discontinued Medications Naloxone HCl (Narcan) 2 mg IV NOW ONE Stop: 12/07/19 18:27 Last Admin: 12/07/19 18:38 Dose: 2 mg Documented by: SHANEKA Vital Signs Vital signs: Vital Signs - 8 hr 12/07/19 18:28 12/07/19 18:42 12/07/19 18:46 Pulse Rate 49 L 50 L 54 L Respiratory Rate 16 22 14 Blood Pressure 167/77 H Blood Pressure [Right Arm] 167/77 H 155/70 H Pulse Oximetry 99 99 98 12/07/19 19:00 12/07/19 19:34 12/07/19 20:02 Pulse Rate 53 L 63 61 Respiratory Rate 18 20 17 Blood Pressure Blood Pressure [Right Arm] 158/63 H 150/70 H 184/79 H Pulse Oximetry 98 100 100 12/07/19 20:41 Pulse Rate 52 L Respiratory Rate 19 Blood Pressure Blood Pressure [Right Arm] 160/69 H Pulse Oximetry 98 Medical Decision Making Lab Data Result diagrams: 12/07/19 18:15 12/07/19 18:15 Labs: Lab Results 12/07/19 12/07/19 12/07/19 Range/Units 18:15 18:15 18:15 WBC 5.6 (4.5-11.0) X10^3/uL RBC 4.66 (4.5-5.9) X10^6/uL Hgb 14.7 (13.5-17.5) g/dL Hct 44.1 (41-53) % MCV 94.6 (80-100) fL MCH 31.5 (26-34) PG MCHC 33.3 (30-36) % RDW 13.6 (11.6-14.8) % Plt Count 222 (150-400) X10^3/uL Neut % (Auto) 63.8 (50-75) % Lymph % (Auto) 24.4 L (25-40) % [place] % (Auto) 8.7 (3-14) % Eos % (Auto) 2.7 (2-4) % Baso % (Auto) 0.4 (0-2) % Neut # (Auto) 3600 (2754-5346) /uL Lymph # (Auto) 1400 (8193-6352) /uL [place] # (Auto) 500 (0-900) /uL Eos # (Auto) 100 (0-450) /uL Baso # (Auto) 0 (0-100) /uL PT 13.4 H (10.1-12.7) SECONDS INR 1.2 (0.9-1.3) APTT 58 H D (26.4-36.2) SECONDS Sodium 143 (137-145) mmol/L Potassium 4.0 (3.4-5.1) mmol/L Chloride 107 (98-107) mmol/L Carbon Dioxide 28 (22-32) mmol/L BUN 23 H (9-20) mg/dL Creatinine 1.00 (0.66-1.25) mg/dL Estimated GFR > 60.0 (>60) mL/min BUN/Creatinine Ratio 23.0 H (6-22) Glucose 116 H (80-110) mg/dL Lactate (0.7-2.1) mmol/L Calcium 10.5 H (8.4-10.2) mg/dL Total Bilirubin 0.6 (0.2-1.3) mg/dL AST 39 (17-59) IU/L ALT 8 (<50) IU/L Alkaline Phosphatase 66 (38-126) U/L Ammonia (9-30) umol/L Total Creatine Kinase 115 (55-170) U/L CK-MB (CK-2) 1.21 (<2.37) ng/mL CK-MB (CK-2) Rel Index 1.1 L (1.5-5.0) % Troponin I < 0.012 (0.01-0.034) ng/mL Total Protein 6.9 (6.3-8.2) g/dL Albumin 3.9 (3.5-5.0) g/dL Globulin 3.0 (1.7-4.1) g/dL Albumin/Globulin Ratio 1.3 (1.0-2.8) Prolactin (3.7-17.9) ng/mL Urine RBC (0-5/HPF) Urine WBC (0-5/HPF) Ur Squamous Epith Cells (0-5/HPF) Urine Bacteria (None) Ur Culture Indicated? Salicylates (<20) mg/dL U Opiates 300ng/mL cut (Negative) Ur Oxycodone Screen (Negative) Urine Methadone Screen (Negative) Acetaminophen (10-30) ug/mL Ur Barbiturates Screen (Negative) U Tricyclic Antidepress (Negative) Ur Phencyclidine Scrn (Negative) Ur Amphetamines Screen (Negative) U Methamphetamines Scrn (Negative) Ur MDMA Scrn (Ecstasy) (Negative) U Benzodiazepines Scrn (Negative) Urine Cocaine Screen (Negative) U Marijuana (THC) Screen (Negative) Ethyl Alcohol ( - 10) mg/dL 02/13/20 02/13/20 02/13/20 Range/Units 18:15 18:39 18:39 WBC (4.5-11.0) X10^3/uL RBC (4.5-5.9) X10^6/uL Hgb (13.5-17.5) g/dL Hct (41-53) % MCV (80-100) fL MCH (26-34) PG MCHC (30-36) % RDW (11.6-14.8) % Plt Count (150-400) X10^3/uL Neut % (Auto) (50-75) % Lymph % (Auto) (25-40) % [place] % (Auto) (3-14) % Eos % (Auto) (2-4) % Baso % (Auto) (0-2) % Neut # (Auto) (1178-2625) /uL Lymph # (Auto) (2429-1945) /uL [place] # (Auto) (0-900) /uL Eos # (Auto) (0-450) /uL Baso # (Auto) (0-100) /uL PT (10.1-12.7) SECONDS INR (0.9-1.3) APTT (26.4-36.2) SECONDS Sodium (137-145) mmol/L Potassium (3.4-5.1) mmol/L Chloride (98-107) mmol/L Carbon Dioxide (22-32) mmol/L BUN (9-20) mg/dL Creatinine (0.66-1.25) mg/dL Estimated GFR (>60) mL/min BUN/Creatinine Ratio (6-22) Glucose (80-110) mg/dL Lactate 0.9 (0.7-2.1) mmol/L Calcium (8.4-10.2) mg/dL Total Bilirubin (0.2-1.3) mg/dL AST (17-59) IU/L ALT (<50) IU/L Alkaline Phosphatase (38-126) U/L Ammonia < 9 L (9-30) umol/L Total Creatine Kinase (55-170) U/L CK-MB (CK-2) (<2.37) ng/mL CK-MB (CK-2) Rel Index (1.5-5.0) % Troponin I (0.01-0.034) ng/mL Total Protein (6.3-8.2) g/dL Albumin (3.5-5.0) g/dL Globulin (1.7-4.1) g/dL Albumin/Globulin Ratio (1.0-2.8) Prolactin (3.7-17.9) ng/mL Urine RBC (0-5/HPF) Urine WBC (0-5/HPF) Ur Squamous Epith Cells (0-5/HPF) Urine Bacteria (None) Ur Culture Indicated? Salicylates < 1.0 (<20) mg/dL U Opiates 300ng/mL cut (Negative) Ur Oxycodone Screen (Negative) Urine Methadone Screen (Negative) Acetaminophen < 10 L (10-30) ug/mL Ur Barbiturates Screen (Negative) U Tricyclic Antidepress (Negative) Ur Phencyclidine Scrn (Negative) Ur Amphetamines Screen (Negative) U Methamphetamines Scrn (Negative) Ur MDMA Scrn (Ecstasy) (Negative) U Benzodiazepines Scrn (Negative) Urine Cocaine Screen (Negative) U Marijuana (THC) Screen (Negative) Ethyl Alcohol < 10 ( - 10) mg/dL 12/07/19 12/07/19 12/07/19 Range/Units 18:39 19:04 20:50 WBC (4.5-11.0) X10^3/uL RBC (4.5-5.9) X10^6/uL Hgb (13.5-17.5) g/dL Hct (41-53) % MCV (80-100) fL MCH (26-34) PG MCHC (30-36) % RDW (11.6-14.8) % Plt Count (150-400) X10^3/uL Neut % (Auto) (50-75) % Lymph % (Auto) (25-40) % [place] % (Auto) (3-14) % Eos % (Auto) (2-4) % Baso % (Auto) (0-2) % Neut # (Auto) (4498-0000) /uL Lymph # (Auto) (9318-1007) /uL [place] # (Auto) (0-900) /uL Eos # (Auto) (0-450) /uL Baso # (Auto) (0-100) /uL PT (10.1-12.7) SECONDS INR (0.9-1.3) APTT (26.4-36.2) SECONDS Sodium (137-145) mmol/L Potassium (3.4-5.1) mmol/L Chloride (98-107) mmol/L Carbon Dioxide (22-32) mmol/L BUN (9-20) mg/dL Creatinine (0.66-1.25) mg/dL Estimated GFR (>60) mL/min BUN/Creatinine Ratio (6-22) Glucose (80-110) mg/dL Lactate (0.7-2.1) mmol/L Calcium (8.4-10.2) mg/dL Total Bilirubin (0.2-1.3) mg/dL AST (17-59) IU/L ALT (<50) IU/L Alkaline Phosphatase (38-126) U/L Ammonia (9-30) umol/L Total Creatine Kinase (55-170) U/L CK-MB (CK-2) (<2.37) ng/mL CK-MB (CK-2) Rel Index (1.5-5.0) % Troponin I (0.01-0.034) ng/mL Total Protein (6.3-8.2) g/dL Albumin (3.5-5.0) g/dL Globulin (1.7-4.1) g/dL Albumin/Globulin Ratio (1.0-2.8) Prolactin 17.1 (3.7-17.9) ng/mL Urine RBC 0-1/hpf (0-5/HPF) Urine WBC 0-1/hpf (0-5/HPF) Ur Squamous Epith Cells 0-1 /hpf (0-5/HPF) Urine Bacteria None seen (None) Ur Culture Indicated? Cult not indicated Salicylates (<20) mg/dL U Opiates 300ng/mL cut Negative (Negative) Ur Oxycodone Screen Negative (Negative) Urine Methadone Screen Negative (Negative) Acetaminophen (10-30) ug/mL Ur Barbiturates Screen Negative (Negative) U Tricyclic Antidepress Negative (Negative) Ur Phencyclidine Scrn Negative (Negative) Ur Amphetamines Screen Negative (Negative) U Methamphetamines Scrn Negative (Negative) Ur MDMA Scrn (Ecstasy) Negative (Negative) U Benzodiazepines Scrn Negative (Negative) Urine Cocaine Screen Negative (Negative) U Marijuana (THC) Screen Negative (Negative) Ethyl Alcohol ( - 10) mg/dL Point of Care Testing Glucose POC 130 Urine Dip Bedside Urine Glucose Negative Bedside Urine Bilirubin + 1 Bedside Urine Ketone +/- 5 Urine Specific [place] 1.025 Bedside Urine Occult Blood - Negative Bedside Urine pH 6.0 Bedside Urine Protein +/- 15 Bedside Urine Urobilinogen 1+ 2mg Bedside Urine Nitrite - Negative Bedside Urine Leukocytes - Negative Esterase Point of care testing: Point of Care Testing Glucose POC 130 Urine Dip Bedside Urine Glucose Negative Bedside Urine Bilirubin + 1 Bedside Urine Ketone +/- 5 Urine Specific [place] 1.025 Bedside Urine Occult Blood - Negative Bedside Urine pH 6.0 Bedside Urine Protein +/- 15 Bedside Urine Urobilinogen 1+ 2mg Bedside Urine Nitrite - Negative Bedside Urine Leukocytes - Negative Esterase Discharge Plan Departure Patient Disposition: Admitted As Inpatient Clinical Impression: Parkinson's disease, Acute metabolic encephalopathy Discharge Date/Time: 12/07/19 21:22 Referrals: Julia Keith MD [Primary Care Provider] - Admit Date/Time: 12/07/19 20:56 Admit Provider: Saroj Li
[2019-12-07 19:21] LABS: Ammonia (NH3) < 9 umol/L (9-30); Lactate (Lactic Acid) 0.9 mmol/L (0.7-2.1)
[2019-12-07 19:30] LABS: UR Morphine/Opiate cutoff 300 Negative (Negative); Ur Creatinine Normal (Normal); Ur Specific Gravity Normal (Normal); Urine Amphetamines Negative (Negative); Urine Barbiturates Negative (Negative); Urine Benzodiazepines Negative (Negative); Urine Cocaine Negative (Negative); Urine MDMA Negative (Negative); Urine Methadone Negative (Negative); Urine Methamphetamines Negative (Negative); Urine Oxycodone Negative (Negative); Urine Phencyclidine Negative (Negative); Urine Tetrahydrocannabinol Negative (Negative); Urine Tricyclic Antidepressant Negative (Negative); Urine pH Normal (Normal)
[2019-12-07 19:39] LABS: Prolactin 17.1 ng/mL (3.7-17.9)
[2019-12-07 20:52] LABS: Bacteria Urine None Seen
[2019-12-07 20:59] LABS: Culture Indicated Urine Cult Not Indicated; RBC Urine 0-1/HPF (0-5/HPF); Squamous Epithelial Cell Urine 0-1 /HPF (0-5/HPF); WBC Urine 0-1/HPF (0-5/HPF)
--- NOTE | 2019-12-07 23:44 | PC.NURSE ---
Report received from ED. Pt admitted at 2130. Transferred from [facility] to bed with slideboard. Pt's eyes closed, unresponsive. Did not open eyes to voice, follow commands, speak. Pupils 1-2mm, equal. Simmons catheter; residue of stool on bottom, cleaned. Pressure injuries to coccyx and right buttock; cleaned and barrier cream applied. Bradycardic - 40's. See vital signs. Before pt's daughter Elina left around 10pm, patient began to open his eyes, follow commands, and speak intelligibly. Disoriented to place and situation. Lethargic, sleepy.
[2019-12-07] MEDS: DEXTROSE 5%-0.45NS W/KCL 20MEQ 1,000 ML 80 MEQ IV (23:50)
[2019-12-08] VITALS (8 sets, daily range): BP systolic 92–155; BP diastolic 57–72; PULSE 45–59; RESP 16–20; TEMP 36.5–36.8; O2SAT 94–98
--- NOTE | 2019-12-08 07:06 | P.HP_ITS ---
History of Present Illness History of Present Illness Date Patient Seen: 12/08/19 Time Patient Seen: 07:06 Chief complaint: unresponsive Narrative: 84-year-old patient who normally sees Dr. Julia Keith who presented to the emergency department mass after being found unresponsive at home Patient with advancing Parkinson's disease an element of dementia per the patient's chart. He apparently was with his son when he made some comment as to feeling sorry for how his life ended up and then became rather quickly unresponsive. EMS was summoned vital signs were found to be stable he was transported to [facility] Emergency Department. No clear etiology for his comatose state was discovered. Patient really had no change in medication recently although had had his generic Seroquel increased slightly. No known other ingestions no known medication mism anagement or issues there per family etcetera Overnight patient seems to have improved significantly still having some disorientation/delusions/hallucinations but awake and alert and easily arousable . Per family members patient has been failing at his current living situation which is [facility]. He is no longer allowed to be there without 24/7 supervision because of issues with his disorientation/delusion as well as multiple falls. Patient seen in the ER here twice in the 2 weeks prior to admission due to falling at home. Workup including head scans have been unremarkable. Patient is on the waiting list for placement at [facility]. 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) Cataract (Chronic 1999) Chronic back pain (Chronic 1999) Colon polyps (Resolved 2001) Dementia (Chronic) Diverticular disease (Chronic 2006) Esophageal ring (Chronic 1999) Esophageal web (Chronic 1999) Fecal incontinence (Chronic 2014) GERD (gastroesophageal reflux disease) (Chronic 1999) Gout (Chronic 1969) Hayfever (Chronic 1999) Hearing loss (Chronic 1999) Herpes (Chronic 1982) Hypertension (Chronic 2007) Melanoma (Resolved 2001) Parkinson's disease (Chronic 2010) Polymyalgia rheumatica (Chronic 2010) Recurrent sinusitis (Resolved 1999) Skin cancer (Resolved 2006) Sleep apnea (Chronic 2010) Tinnitus (Chronic 2015) Urinary incontinence (Chronic 2014) Surgical History Anesthesia (Resolved) History of sinus surgery (Resolved 1989) Status post hernia repair (Resolved 1999) Family & Social History Family History Grandfather Heart disease Grandmother Heart disease Father Alcoholism Mother Alzheimer's disease Grandfather MVA (motor vehicle accident) Grandmother No problems noted. Social History: household members other Prior Living Arrangements Skilled Nurse Facility Tobacco & Substance use: Smoking Status Former smoker alcohol intake frequency 0-2 drinks per day Substance Use Type does not use Meds Home Medications and Allergies Home Medications Medication Instructions Recorded Confirmed Type esomeprazole magnesium [Nexium] 40 mg PO DAILY #0 01/25/17 12/07/19 History metoprolol succinate 50 mg PO DAILY 11/11/18 12/07/19 History polyethylene glycol 3350 17 17 gram PO DAILY #510 gram 05/12/19 12/07/19 Rx gram/dose oral powder donepezil 10 mg tablet 10 mg PO DAILY #30 tab 07/04/19 12/07/19 Rx carbidopa-levodopa 1 tab PO BEDTIME 11/21/19 12/07/19 History loperamide See Rx Instructions .ROUTE 11/21/19 12/07/19 History .COMPLEX MDD 8 rasagiline 1 mg PO DAILY 11/21/19 12/07/19 History tamsulosin 0.4 mg PO QPM 11/21/19 12/07/19 History Rytary 1 cap PO TID 12/07/19 12/07/19 History fluticasone furoate 1 spray INTRANASAL DAILY 12/07/19 12/07/19 History Allergies Allergy/AdvReac Type Severity Reaction Status Date / Time nitrofurantoin AdvReac Verified 11/10/19 13:30 [From Macrobid] Review of Systems Review of Systems ROS: Yes unobtainable due to mental condition (Patient completely unreliable historian, including active symptoms) Exam Vital Signs (past 8 hours): - 12/08/19 00:00 12/08/19 04:59 12/08/19 05:30 Temperature 97.8 F 97.7 F Pulse Rate 48 L 45 L 57 L Respiratory Rate 16 20 Blood Pressure 143/57 H 92/61 119/64 Pulse Oximetry 96 98 Oxygen Delivery Method Room Air Oxygen Flow Rate 0 Narrative Exam Narrative: Elderly male lying in hospital bed easily arousable and speaks when spoken to interacts normally but clearly is disoriented/delusional HEENT-normocephalic atraumatic Neck-no lymphadenopathy no bruits Lungs-clear with good breath sounds Heart-regular rate and rhythm no murmur, minimally bradycardic Abdomen-positive bowel tones soft nontender nondistended Neuro-moves all 4 extremities. Very slow speech. Gait not tested and no other specific testing. Alert oriented to self only Objective Labs Result Diagrams: 12/08/19 08:35 12/08/19 08:35 Labs: Laboratory Results - last 24 hr 12/07/19 12/07/19 12/07/19 18:15 18:15 18:15 WBC 5.6 RBC 4.66 Hgb 14.7 Hct 44.1 MCV 94.6 MCH 31.5 MCHC 33.3 RDW 13.6 Plt Count 222 Neut % (Auto) 63.8 Lymph % (Auto) 24.4 L Robeson % (Auto) 8.7 Eos % (Auto) 2.7 Baso % (Auto) 0.4 Neut # (Auto) 3600 Lymph # (Auto) 1400 Robeson # (Auto) 500 Eos # (Auto) 100 Baso # (Auto) 0 PT 13.4 H INR 1.2 APTT 58 H D Sodium 143 Potassium 4.0 Chloride 107 Carbon Dioxide 28 BUN 23 H Creatinine 1.00 Estimated GFR > 60.0 BUN/Creatinine Ratio 23.0 H Glucose 116 H Lactate Calcium 10.5 H Total Bilirubin 0.6 AST 39 ALT 8 Alkaline Phosphatase 66 Ammonia Total Creatine Kinase 115 CK-MB (CK-2) 1.21 CK-MB (CK-2) Rel Index 1.1 L Troponin I < 0.012 Total Protein 6.9 Albumin 3.9 Globulin 3.0 Albumin/Globulin Ratio 1.3 Prolactin Urine RBC Urine WBC Ur Squamous Epith Cells Urine Bacteria Ur Culture Indicated? Salicylates U Opiates 300ng/mL cut Ur Oxycodone Screen Urine Methadone Screen Acetaminophen Ur Barbiturates Screen U Tricyclic Antidepress Ur Phencyclidine Scrn Ur Amphetamines Screen U Methamphetamines Scrn Ur MDMA Scrn (Ecstasy) U Benzodiazepines Scrn Urine Cocaine Screen U Marijuana (THC) Screen Ethyl Alcohol 12/07/19 12/07/19 12/07/19 18:15 18:39 18:39 WBC RBC Hgb Hct MCV MCH MCHC RDW Plt Count Neut % (Auto) Lymph % (Auto) Robeson % (Auto) Eos % (Auto) Baso % (Auto) Neut # (Auto) Lymph # (Auto) Robeson # (Auto) Eos # (Auto) Baso # (Auto) PT INR APTT Sodium Potassium Chloride Carbon Dioxide BUN Creatinine Estimated GFR BUN/Creatinine Ratio Glucose Lactate 0.9 Calcium Total Bilirubin AST ALT Alkaline Phosphatase Ammonia < 9 L Total Creatine Kinase CK-MB (CK-2) CK-MB (CK-2) Rel Index Troponin I Total Protein Albumin Globulin Albumin/Globulin Ratio Prolactin Urine RBC Urine WBC Ur Squamous Epith Cells Urine Bacteria Ur Culture Indicated? Salicylates < 1.0 U Opiates 300ng/mL cut Ur Oxycodone Screen Urine Methadone Screen Acetaminophen < 10 L Ur Barbiturates Screen U Tricyclic Antidepress Ur Phencyclidine Scrn Ur Amphetamines Screen U Methamphetamines Scrn Ur MDMA Scrn (Ecstasy) U Benzodiazepines Scrn Urine Cocaine Screen U Marijuana (THC) Screen Ethyl Alcohol < 10 12/07/19 12/07/19 12/07/19 18:39 19:04 20:50 WBC RBC Hgb Hct MCV MCH MCHC RDW Plt Count Neut % (Auto) Lymph % (Auto) Robeson % (Auto) Eos % (Auto) Baso % (Auto) Neut # (Auto) Lymph # (Auto) Robeson # (Auto) Eos # (Auto) Baso # (Auto) PT INR APTT Sodium Potassium Chloride Carbon Dioxide BUN Creatinine Estimated GFR BUN/Creatinine Ratio Glucose Lactate Calcium Total Bilirubin AST ALT Alkaline Phosphatase Ammonia Total Creatine Kinase CK-MB (CK-2) CK-MB (CK-2) Rel Index Troponin I Total Protein Albumin Globulin Albumin/Globulin Ratio Prolactin 17.1 Urine RBC 0-1/hpf Urine WBC 0-1/hpf Ur Squamous Epith Cells 0-1 /hpf Urine Bacteria None seen Ur Culture Indicated? Cult not indicated Salicylates U Opiates 300ng/mL cut Negative Ur Oxycodone Screen Negative Urine Methadone Screen Negative Acetaminophen Ur Barbiturates Screen Negative U Tricyclic Antidepress Negative Ur Phencyclidine Scrn Negative Ur Amphetamines Screen Negative U Methamphetamines Scrn Negative Ur MDMA Scrn (Ecstasy) Negative U Benzodiazepines Scrn Negative Urine Cocaine Screen Negative U Marijuana (THC) Screen Negative Ethyl Alcohol Assessment & Plan Assessment & Plan narrative: 1. 84-year-old male who presented basically comatose without clear finding on evaluation in the emergency department. Since then he has regained some level of his sensorium. He clearly is failing in his current environment because of his underlying medical issues which includes Parkinson's, plus-minus Parkinson's dementia versus Alzheimer's dementia with hallucinations. He has had multiple falls related to his movement disorder primarily it appears. At this point the most likely culprit would be perhaps the slightly increased dose of his generic Seroquel even though the timing does not fit very well. I am going to hold that here during this hospitalization. He does need more advan aracely imaging of his brain given multiple falls etcetera and I think an MRI would be appropriate. He has had multiple CT scans but I think an MRI to complete his evaluation would be appropriate. Does not have any focal findings on exam that I can find now to suggest enter cerebral mass tumor bleed etcetera but I think does need advanced imaging. 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 Of course given his mental status he is unable take any of his oral medications which will all have to be held. Will give him some IV beta-tracy given his long-term beta-tracy use but reduce the dose of that as well given his modest bradycardia and hypotension 2. Parkinsonism-continue patient's usual dose medications. This will be essential to having a complete physical therapy evaluation 3. Dementia-continue patient's Aricept 4. VTE prophylaxis-will employ sequential compression devices and hold off with Lovenox until it is more clear what is or is not going on with his CYCLE REPAIRER 5. Code status-patient is very clear based on records and family that he would not want to be resuscitated in the event of a sudden cardiac or respiratory emergency therefore he has made do not resuscitate for the purposes this hospitalization 6. Disposition-patient will need physical therapy and occupational therapy evaluations and seems unlikely he will be able to return to his previous living environment although if there is enough family support (that can be there present 17/05) it may be appropriate for him to temporarily return there while a higher level of care is sought. I will ask our discharge planning staff to assist in this evaluation as well. Overall patient with significant mental status changes deserves inpatient hospitalization. He clearly be in the hospital greater than 48 hours including 2 separate midnights. This is despite the fact that he rapidly improved several hours after admission. At time of admission he clearly deserves inpatient hospitalization and in my opinion that was the appropriate designation at time of admission. Scores GCS Real coma scale eye opening: Spontaneous Real coma scale verbal response: Confused [place] coma scale motor response: Obey commands [place] coma scale total score: 14
--- NOTE | 2019-12-08 08:41 | DI.MRI.S_ITS ---
PROCEDURE: MR STROKE Pre- and post-contrast brain MRI, non-contrast brain MR angiogram, pre- and postcontrast neck MR angiogram INDICATIONS: encephalopathy TECHNIQUE: Brain: Noncontrast axial T1 spin echo, axial T2 fast spin echo, sagittal and axial FLAIR, coronal T2 fast spin echo, axial gradient echo, axial diffusion and ADC through the brain. After the administration of contrast, axial 3D VIBE of the cranial vasculature and brain. Brain MRA: Non-contrast 3-D time of flight MR angiogram, with multiple dtnpizs-fqxlxiped-pfpwqqnbvu (MIP) reformats performed. Neck MRA: Axial and sagittal TruFISP through the neck. Coronal dynamic MR angiogram during administration of contrast in the arterial and venous phases, with 3-dimenstional tehsqdb-ksntmhifl-rxcetdzgta (MIP) reformats constructed from subtraction images. COMPARISON: [facility], CT, CT STROKE, 12/07/2019, 18:19. FINDINGS: Image quality: Partially degraded by motion artifact. BRAIN: CSF spaces: Ventricles are normal in size and shape. Basal cisterns are patent. No extra-axial fluid collections. Brain: No intracranial bleeds or mass effects. There is moderate diffuse cerebral volume loss. There is a mild degree of patchy high FLAIR signal within the periventricular and subcortical white matter. There is a moderate size chronic infarct within the right parietal lobe measuring roughly 45 mm diameter. Sheets-white matter interface is normal. Diffusion weighted images show no acute ischemic insults. Brainstem appears normal. Normal intravascular flow voids are present. No abnormal intracranial enhancement. Skull and face: Calvarial marrow signal is normal. Orbits appear normal. Sinuses: Sinuses and mastoids are clear. BRAIN MR ANGIOGRAM: Flow is grossly present within the bilateral internal carotid arteries, vertebral arteries, and basilar artery. Flow is grossly present within the bilateral anterior, middle, and posterior cerebral arteries. There is a near origin of the right posterior cerebral artery. Assessment for significant stenoses and small aneurysms is limited secondary to motion artifact. NECK MR ANGIOGRAM: Carotids: Great vessels demonstrate a conventional anatomy as they arise from the aortic arch. The origins of the common carotid arteries appear patent. The calibers and courses of both common carotid arteries are normal. The right internal carotid artery is patent. There is a high-grade, roughly 90% stenosis of the left internal carotid artery origin. Posterior circulation: The origins of the vertebral arteries appear patent. More superior portions of both vertebral arteries demonstrate normal course and caliber, and join to form a normal appearing basilar artery. Miscellaneous: Subclavian arteries appear patent. Pre-contrast images through the neck show no soft tissue abnormalities. IMPRESSION: Limited examination secondary to motion artifact. BRAIN MRI: 1. No acute process. No recent infarct. 2. Volume loss and small vessel ischemic disease. 3. Chronic right parietal lobe infarct. BRAIN MR ANGIOGRAM: Grossly negative cerebral MR angiography. NECK MR ANGIOGRAM: 1. No right internal carotid artery stenosis. 2. Roughly 90% left internal carotid artery origin stenosis. 3. Patent bilateral vertebral arteries. Dictated by: Ephraim Gomes M.D. on 12/08/2019 at 11:16 Approved by: Ephraim Gomes M.D. on 12/08/2019 at 11:21
[2019-12-08 09:29] LABS: Add Manual Diff / Slide Review NO; Basophils Absolute Auto 0 /uL (0-100); Basophils Percent Auto 0.2 % (0-2); Eosinophils Absolute Auto 200 /uL (0-450); Hematocrit 46.4 % (41-53); Hemoglobin 15.5 g/dL (13.5-17.5); Lymphocytes Absolute Auto 1600 /uL (1100-4500); Lymphocytes Percent Auto 19.7 % (25-40); Mean Corpuscular HGB Conc 33.4 % (30-36); Mean Corpuscular Hemoglobin 31.6 PG (26-34); Mean Corpuscular Volume 94.7 fL (80-100); Monocytes Absolute Auto 600 /uL (0-900); Monocytes Percent Auto 7.6 % (3-14); Neutrophils Absolute Auto 5700 /uL (1500-7000); Neutrophils Percent Auto 70.5 % (50-75); Platelet Count 228 X10^3/uL (150-400); Red Cell Distribution Width 13.6 % (11.6-14.8); White Blood Cell Count 8.1 X10^3/uL (4.5-11.0)
[2019-12-08 09:39] LABS: BUN Creatinine Ratio 22.2 (6-22); Blood Urea Nitrogen 20 mg/dL (9-20); Calcium 10.4 mg/dL (8.4-10.2); Carbon Dioxide 28 mmol/L (22-32); Chloride 107 mmol/L (98-107); Estimated Glomerular Filt Rate > 60.0 mL/min (>60); Glucose 118 mg/dL (80-110); HEMOLYSIS < 15 (0-50); Sodium 143 mmol/L (137-145)
[2019-12-08] MEDS: METOPROLOL ER 50 MG TABLET 25 MG PO (09:39)
[2019-12-08] MEDS: PANTOPRAZOLE 40 MG TABLET PO (09:39)
[2019-12-08] MEDS: polyethylene glycoL 3350 17 GM POWD.PACK PO (09:41)
[2019-12-08] MEDS: CARBIDOPA LEVODOPA 1 EACH PO ×2 (11:18→15:47)
--- NOTE | 2019-12-08 12:39 | PT.IIE ---
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) Cataract (Chronic 1999) Chronic back pain (Chronic 1999) Colon polyps (Resolved 2001) Dementia (Chronic) Diverticular disease (Chronic 2006) Esophageal ring (Chronic 1999) Esophageal web (Chronic 1999) Fecal incontinence (Chronic 2015) GERD (gastroesophageal reflux disease) (Chronic 1999) Gout (Chronic 1969) Hayfever (Chronic 1999) Hearing loss (Chronic 1999) Herpes (Chronic 1982) Hypertension (Chronic 2007) Melanoma (Resolved 2001) Parkinson's disease (Chronic 2010) Polymyalgia rheumatica (Chronic 2010) Recurrent sinusitis (Resolved 1999) Skin cancer (Resolved 2006) Sleep apnea (Chronic 2010) Tinnitus (Chronic 2015) Urinary incontinence (Chronic 2014) Physical Therapy Inpatient Evaluation/Re-Eval M1 PT/OT-IP Prior Functional Status Start: 12/08/19 09:02 Freq: NEEDED Status: Active Protocol: Document 12/08/19 12:03 (Rec: 12/08/19 12:39 [email or web address]) Medical Review Prior Functional Status Medical History Reviewed Yes Communication unable to provide social hx. Called dtr Elina to obtain info. Parkinson's disease and dementia at baseline. Dtr reports pt often have hallucination and confused at baseline but able to follow simple command. Mobility and Gait Patient with advancing Parkinson's disease an element of dementia per the patient's chart. Per family members patient has been failing at his current living situation which is [facility]. He has a walker but he does not like to use and amb with a shuffling gait and flexed trunk. He is no longer allowed to be there without 24/7 supervision because of issues with his disorientation/ delusion as well as multiple falls. Patient seen in the ER here twice in the 2 weeks prior to admission due to falling at home. Activities of Daily Living and IADL's see above Social History Household Members other Living Arrangements Assisted Living Home Environment High Toilet,Walk in Shower, Built-In Shower Seat Home Equipment Front Wheel Walker,Grab Bars Near Toilet,Grab Bars In Shower Employment Status Retired Additional Social History Comment Per Dtr Elina, Patient is #2 on the waiting list for placement at [facility]. Pt is failing in his current environment because of his underlying medical issues which includes Parkinson's, plus-minus Parkinson's dementia versus Alzheimer's dementia with hallucinations. M2 PT-IP Current Condition Start: 12/08/19 09:02 Freq: NEEDED Status: Active Protocol: Document 12/08/19 12:03 (Rec: 12/08/19 12:39 [email or web address]) Physical Therapy Current Condition Current Condition Evaluation Date 12/08/19 Treatment Diagnosis Unresponsive, Advanced Parkinson's disease, poor balance, multiple falls Onset Date 12/07/19 Weight Bearing Status Weight Bearing Status Full Weight Bearing M3 PT-IP Subjective Start: 12/08/19 09:02 Freq: NEEDED Status: Active Protocol: Document 12/08/19 12:03 HH (Rec: 12/08/19 12:39 [email or web address]) Subjective Physical Therapy Visit Type Type Initial Evaluation Visit Start Time 11:15 Visit Stop Time 11:30 Total Visit Minutes 15 Notes Pt just returned from MRI screen. He was ambulating from to [facility] with nursing staff. MEDICAL RECORDS CLERK assisted PT this eval session Number of HUMAN RESOURCES MANAGER MANUFACTURING Visits 0 Physical Therapy Visit Comments Patient Comments I might have a BW movement. Patient Goals unable to obtain Therapy Pain Assessment Pain Present Pain Present Denied Pain M4 PT-IP Mobility and Gait Start: 12/08/19 09:02 Freq: NEEDED Status: Active Protocol: Document 12/08/19 12:03 HH (Rec: 12/08/19 12:39 [email or web address]) PT-Transfer Assessment Sit to and From Stand Sit to and from Stand Minimal Assistance,Use of Upper Extremities Equipment Transfer Assistive Device Gait Belt,Front Wheeled Walker Transfers Transfer Destination Bed,Chair Transfer Technique Stand Step Pivot Transfer Ability Level of Assist Minimal Assistance,Use of Upper Extremities Comments Mobility Comments Pt was ambulating towards [facility] from room door with nursing staff and FWW upon PT arrival. Pt amb with shuffling gait, flexed trunk and had difficulty with movement initiation. He then sat on BSC for BM. Meanwhile, Pt was AxO x1, able to recall his name and but mostly disoriented . He was able to follow commmand to stand up after with min A due to difficulty initiating trunk flexion. Pt stood with FWW with CGA for 8 mins d/t continuous BM and pt was not aware of it. He sat down after for further BM. However, pt was impulsive and often asked if he could get up and walk again. Reminder was given multiple times. Pt was left in room with MEDICAL RECORDS CLERK d/t his ongoing BM. Gait Assessment Gait Gait Assistance Required: Contact Guard Assist Distance (Feet) 6 Able to Maintain Weight Bearing Status Yes During Gait Assistive Devices Assistive Device Gait Belt,Front Wheeled Walker Orthotic/Prosthetic Devices or Brace: No Gait Deviations General Gait Pattern Decreased Stride Length, Decreased Feet Clearance, Festinating,Narrow Based Gait, Step-to Gait Factors Limiting Gait Function Factors Limiting Gait Function Abnormal Tonal Influences, Decreased Activity Tolerance, Decreased Strength,Difficulty Following Directions, Incoordination,Limited Range of Motion,Poor Balance,Poor Safety Awareness Comments Gait Comments see mobility comments. PT-Balance Assessment Sitting Balance and Reactions Static Sitting Balance Ability Good Dynamic Sitting Balance Ability Good Standing Balance and Reactions Static Standing Balance Ability Good Dynamic Standing Balance Ability Fair Device Used FWW M5 PT-IP Objective Assessments Start: 12/08/19 09:02 Freq: NEEDED Status: Active Protocol: Document 12/08/19 12:03 (Rec: 12/08/19 12:39 [email or web address]) Orientation Orientation/Cognition Level of Alertness Confusional State Orientation Name,Birthday Language Function Ability Word Finding Difficulties Safety Awareness Decreased Safety Awareness Memory Description Short Term Impaired,Custodial Impaired Comments unable to provide social hx. Called dtr Elina to obtain info. Parkinson's disease and dementia at baseline. Dtr reports pt often have hallucination and confused at baseline but able to follow simple command. Gross Range of Motion Upper Extremity ROM Assessment Bilaterally Impaired Lower Extremity ROM Assessment Bilaterally Impaired Strength Upper Extremity Strength Assessment Bilaterally Impaired Lower Extremity Strength Assessment Bilaterally Impaired M6 PT-IP Treatment Start: 12/08/19 09:02 Freq: NEEDED Status: Active Protocol: Document 12/08/19 12:03 (Rec: 12/08/19 12:39 [email or web address]) Physical Therapy Treatment Education Education Provided Safety M7 PT-IP Assessment and Plan Start: 12/08/19 09:02 Freq: NEEDED Status: Active Protocol: Document 12/08/19 12:03 (Rec: 12/08/19 12:39 HH [email or web address]) PT Summary Assessment and Plan Potential Rehabilitation Potential Poor Status of Condition at Evaluation Stable Summary Impairments Pain,ROM,Strength,Balance, Coordination,Tone,Cognition, Bed Mobility,Transfers,Gait, Activity Tolerance Progress Towards Goals Safe For Discharge Assessment Summary Pt is an eval only d/t his advancing Parkinson's disease an element of dementia who has difficulty acquiring new information. Pt was able to follow 1-step simple command and he demonstrates typical PD symptoms with shuffling gait, difficulty with movement initiation, flexed trunk and poor balance and safety awareness. Based on her pt's PLOF from dtr's report, pt is at baseline for his mobility who needs 24/7 supervision for mobility d/t his confusion/ disorientation and high fall risks. There's no need for skilled therapy at this point and recommend pt to have 24/7 assist care such as his current plan to [facility] memory care . Frequency of Treatment Frequency Of Treatment Discharge Recommendations To Nursing Amount of Assist Needed 1 Person Assist Discharge Recommendations PT Discharge Recommendations Home with 24/7 Assist Transportation Needs at Discharge Wheelchair/Cabulance
--- NOTE | 2019-12-08 13:15 | OT.IPNOTE ---
Spoke with pt's son in law and states no OT needs needed at this time. Pt needing 24/7 supervision and assist at this time for all ADl and mobility needs. Therefore discharge OT eval orders.
--- NOTE | 2019-12-08 14:30 | P.DS_ITS ---
History of Present Illness History of Present Illness Chief complaint: unresponsive Narrative: 84-year-old patient who normally sees Dr. Julia Keith who presented to the emergency department [facility] after being found unresponsive at home Patient with advancing Parkinson's disease an element of dementia per the [facility]'s chart. He apparently was with his son when he made some comment as to feeling sorry for how his life ended up and then became rather quickly unresponsive. EMS was summoned vital signs were found to be stable he was transported to [facility] Emergency Department. No clear etiology for his comatose state was discovered. Patient really had no change in medication recently although had had his generic Seroquel increased slightly. No known other ingestions no known medication mismanagement or issues there per family etcetera Overnight patient seems to have improved significantly still having some disorientation/delusions/hallucinations but awake and alert and easily arousable. Per family members patient has been failing at his current living situation which is [facility]. He is no longer allowed to be there without 24/7 supervision because of issues with his disorientation/delusion as well as multiple falls. Patient seen in the ER here twice in the 2 weeks prior to admission due to falling at home. Workup including head scans have been unremarkable. Patient is on the waiting list for placement at [facility]. His increased hallucinations and issues are reasons why his neurologist increase the dose of his generic Seroquel about 3 days prior to admission Discharge Providers Provider Date of admission: 12/07/19 20:56 Discharge Date: 12/08/19 Primary care physician: Julia Keith MD Consults: 12/07/19 23:32 Consult to Discharge Planning Routine Comment: 12/08/19 08:16 Consult to Discharge Planning Routine Comment: Consult to Occupational Therapy Evaluate & Treat Comment: Physician Instructions: Evaluate and treat Consult to Physical Therapy Evaluate & Treat Comment: Physician Instructions: Evaluate and Treat Discharge provider: Saroj Li MD Summary Hospital Course Discharge Diagnosis: 1. Metabolic encephalopathy, acute 2. Parkinson's disease, advanced 3. Alzheimer's type dementia 4. Paroxysmal atrial fibrillation Hospital Course: As per his status in his history and physical patient was admitted basically comatose with a very suppressed [place] coma scale. Please see ER physician's notes for details. Over the course of several hours he slowly regained consci ousness and seem to be returning to a level close to baseline. At baseline patient apparently has been having hallucinations and episodes of delirium/encephalopathy as well at home. He has family member staying with him 17/05 because of this and is actively seeking placement in an alternate facility which can handle this sort of cognitive/mental status change. The etiology of his altered mental status is felt most likely to be related to a combination of his comorbidities including his dementia and his advanced parkinsonism as well as perhaps medication including specifically the generic Seroquel as noted previously. At time of discharge patient was per family members back to baseline. His MRI of the brain was essentially unremarkable showing no evidence of an acute process and no evidence of significant vascular disease. He was evaluated by physical therapy who felt like he could be discharged safely home with 17/05 assistance which is what currently exist. He had no occupational therapy needs therefore was felt to be safe to discharge him home He will remain off of the generic Seroquel for now and patient should maintain close contact with post his neurologist and his primary care provider Dr. Keith. I had suggested continued monitoring in the hospital might be appropri ate given the uncertain nature of his altered mental status, however with the negative workup to date the lack of specific skilled therapy needs etcetera as well as strong desire on the part of the patient's family to return him to his previous living environment it did not seem inappropriate to discharge him home. Patients with an element of dementia often times do indeed do better when return to a more consistent and ?known? living environment. Therefore I felt appropriate to discharge him home to the care of the family members will be present 17/05 while seeking longer term placement in a memory care facility. Status at Discharge Cognitive/behavioral status at discharge: at baseline, confused Functional status at discharge: wheelchair bound Overall status at discharge: patient is progressing back to baseline Exam Vital Signs (past 8 hours): - 12/08/19 08:48 12/08/19 09:39 12/08/19 11:47 Temperature 98.2 F 98.0 F Pulse Rate 55 L 55 L 58 L Respiratory Rate 16 18 Blood Pressure 155/72 H 155/72 H 118/59 L Pulse Oximetry 98 98 12/08/19 13:00 Temperature Pulse Rate Respiratory Rate Blood Pressure Pulse Oximetry 98 Oxygen Delivery Method Room Air Oxygen Flow Rate 0 Objective Labs Result Diagrams: 12/08/19 08:35 12/08/19 08:35 Labs: Laboratory Results - last 24 hr 12/07/19 12/07/19 12/07/19 18:15 18:15 18:15 WBC 5.6 RBC 4.66 Hgb 14.7 Hct 44.1 MCV 94.6 MCH 31.5 MCHC 33.3 RDW 13.6 Plt Count 222 Neut % (Auto) 63.8 Lymph % (Auto) 24.4 L Turner % (Auto) 8.7 Eos % (Auto) 2.7 Baso % (Auto) 0.4 Neut # (Auto) 3600 Lymph # (Auto) 1400 Turner # (Auto) 500 Eos # (Auto) 100 Baso # (Auto) 0 PT 13.4 H INR 1.2 APTT 58 H D Sodium 143 Potassium 4.0 Chloride 107 Carbon Dioxide 28 BUN 23 H Creatinine 1.00 Estimated GFR > 60.0 BUN/Creatinine Ratio 23.0 H Glucose 116 H Lactate Calcium 10.5 H Total Bilirubin 0.6 AST 39 ALT 8 Alkaline Phosphatase 66 Ammonia Total Creatine Kinase 115 CK-MB (CK-2) 1.21 CK-MB (CK-2) Rel Index 1.1 L Troponin I < 0.012 Total Protein 6.9 Albumin 3.9 Globulin 3.0 Albumin/Globulin Ratio 1.3 Prolactin Urine RBC Urine WBC Ur Squamous Epith Cells Urine Bacteria Ur Culture Indicated? Salicylates U Opiates 300ng/mL cut Ur Oxycodone Screen Urine Methadone Screen Acetaminophen Ur Barbiturates Screen U Tricyclic Antidepress Ur Phencyclidine Scrn Ur Amphetamines Screen U Methamphetamines Scrn Ur MDMA Scrn (Ecstasy) U Benzodiazepines Scrn Urine Cocaine Screen U Marijuana (THC) Screen Ethyl Alcohol 12/07/19 12/07/19 12/07/19 18:15 18:39 18:39 WBC RBC Hgb Hct MCV MCH MCHC RDW Plt Count Neut % (Auto) Lymph % (Auto) Turner % (Auto) Eos % (Auto) Baso % (Auto) Neut # (Auto) Lymph # (Auto) Turner # (Auto) Eos # (Auto) Baso # (Auto) PT INR APTT Sodium Potassium Chloride Carbon Dioxide BUN Creatinine Estimated GFR BUN/Creatinine Ratio Glucose Lactate 0.9 Calcium Total Bilirubin AST ALT Alkaline Phosphatase Ammonia < 9 L Total Creatine Kinase CK-MB (CK-2) CK-MB (CK-2) Rel Index Troponin I Total Protein Albumin Globulin Albumin/Globulin Ratio Prolactin Urine RBC Urine WBC Ur Squamous Epith Cells Urine Bacteria Ur Culture Indicated? Salicylates < 1.0 U Opiates 300ng/mL cut Ur Oxycodone Screen Urine Methadone Screen Acetaminophen < 10 L Ur Barbiturates Screen U Tricyclic Antidepress Ur Phencyclidine Scrn Ur Amphetamines Screen U Methamphetamines Scrn Ur MDMA Scrn (Ecstasy) U Benzodiazepines Scrn Urine Cocaine Screen U Marijuana (THC) Screen Ethyl Alcohol < 10 12/07/19 12/07/19 12/07/19 18:39 19:04 20:50 WBC RBC Hgb Hct MCV MCH MCHC RDW Plt Count Neut % (Auto) Lymph % (Auto) Turner % (Auto) Eos % (Auto) Baso % (Auto) Neut # (Auto) Lymph # (Auto) Turner # (Auto) Eos # (Auto) Baso # (Auto) PT INR APTT Sodium Potassium Chloride Carbon Dioxide BUN Creatinine Estimated GFR BUN/Creatinine Ratio Glucose Lactate Calcium Total Bilirubin AST ALT Alkaline Phosphatase Ammonia Total Creatine Kinase CK-MB (CK-2) CK-MB (CK-2) Rel Index Troponin I Total Protein Albumin Globulin Albumin/Globulin Ratio Prolactin 17.1 Urine RBC 0-1/hpf Urine WBC 0-1/hpf Ur Squamous Epith Cells 0-1 /hpf Urine Bacteria None seen Ur Culture Indicated? Cult not indicated Salicylates U Opiates 300ng/mL cut Negative Ur Oxycodone Screen Negative Urine Methadone Screen Negative Acetaminophen Ur Barbiturates Screen Negative U Tricyclic Antidepress Negative Ur Phencyclidine Scrn Negative Ur Amphetamines Screen Negative U Methamphetamines Scrn Negative Ur MDMA Scrn (Ecstasy) Negative U Benzodiazepines Scrn Negative Urine Cocaine Screen Negative U Marijuana (THC) Screen Negative Ethyl Alcohol 12/08/19 12/08/19 08:35 08:35 WBC 8.1 RBC 4.90 Hgb 15.5 Hct 46.4 MCV 94.7 MCH 31.6 MCHC 33.4 RDW 13.6 Plt Count 228 Neut % (Auto) 70.5 Lymph % (Auto) 19.7 L Turner % (Auto) 7.6 Eos % (Auto) 2.0 Baso % (Auto) 0.2 Neut # (Auto) 5700 Lymph # (Auto) 1600 Turner # (Auto) 600 Eos # (Auto) 200 Baso # (Auto) 0 PT INR APTT Sodium 143 Potassium 4.0 Chloride 107 Carbon Dioxide 28 BUN 20 Creatinine 0.90 Estimated GFR > 60.0 BUN/Creatinine Ratio 22.2 H Glucose 118 H Lactate Calcium 10.4 H Total Bilirubin AST ALT Alkaline Phosphatase Ammonia Total Creatine Kinase CK-MB (CK-2) CK-MB (CK-2) Rel Index Troponin I Total Protein Albumin Globulin Albumin/Globulin Ratio Prolactin Urine RBC Urine WBC Ur Squamous Epith Cells Urine Bacteria Ur Culture Indicated? Salicylates U Opiates 300ng/mL cut Ur Oxycodone Screen Urine Methadone Screen Acetaminophen Ur Barbiturates Screen U Tricyclic Antidepress Ur Phencyclidine Scrn Ur Amphetamines Screen U Methamphetamines Scrn Ur MDMA Scrn (Ecstasy) U Benzodiazepines Scrn Urine Cocaine Screen U Marijuana (THC) Screen Ethyl Alcohol Discharge Plan Discharge Plan Patient Disposition: Assisted Living Other facility: [facility] Discharge orders & Medications Discharge Orders: Discharge (Order); Ordered 12/08/19 Ordered By: Saroj Li Prescriptions: Continued polyethylene glycol 3350 17 gram/dose powder 17 gram PO DAILY Qty: 510 RF: 12 esomeprazole magnesium [Nexium] 40 MG capsule,delayed release(DR/EC) 40 mg PO DAILY Qty: 0 RF: 0 donepezil [Aricept] 10 mg tablet 10 mg PO DAILY Qty: 30 RF: 6 rasagiline 1 mg tablet 1 mg PO DAILY RF: 0 tamsulosin 0.4 mg capsule 0.4 mg PO QPM RF: 0 carbidopa-levodopa 25-100 mg tablet 1 tab PO BEDTIME RF: 0 loperamide 2 mg capsule See Rx Instructions .ROUTE .COMPLEX MDD 8 RF: 0 fluticasone furoate 27.5 mcg/actuation [place],Suspension 1 spray INTRANASAL DAILY RF: 0 Rytary 48.75-195 mg Capsule, Extended Release 1 cap PO TID RF: 0 metoprolol succinate 50 mg tablet extended release 24 hr 50 mg PO DAILY RF: 0 Discontinued quetiapine 25 mg tablet 12.5 mg PO QPM RF: 0 Follow up/Referrals: Julia Keith MD [Primary Care Provider] - 1 Week (Please call to schedule appointment) Discharge Health Status Multidrug resistant organism: No MDRO Precautions: [place] Diet/Activity/Treatments Diet: Diet as Tolerated Visit Report/Discharge Packet Instructions: Aging Gracefully: Reducing the Risks of Polypharmacy, How to Prevent Falls, DI for Altered Mental Status Visit Report Forms: Patient Portal/API, Stroke Signs & Symptoms Discharge Data Primary Care Provider: Julia Keith Discharges patient from system. Discharge Date/Time: 12/08/19 16:30
--- NOTE | 2019-12-08 14:54 | PC.NURSE ---
Addendum entered by Flavio Terrell R.N. 12/08/19 15:43: THIS DRIVER SALESMAN IS OVERSEEING STUDENT'S CARE. AREAS OF BREAKDOWN TO GLUTEAL FOLD AND RIGHT BUTTOCK APPEAR DUE TO PRESSURE AND SHEERING, AND WOULD APPEAR TO BE STAGE 2 THEY ARE SUPERFICIAL AND OPEN. Original Note: Patient has hallucinated this AM and is very impulsive. Two small stage 1 pressure injuries found on buttocks, pictures taken and documented. Daughter, Elina, and patient are ready for him to go back home, DR. Li notified. Simmons catheter D/Robin at 2:55pm. Patient lying in bed with daughter in room conversing.
--- NOTE | 2019-12-08 14:56 | PC.NURSE ---
PATIENT TOLERATED MRI THIS AM. DTR AT BEDSIDE. STATES SHE HAS BEEN STAYING W/ PATIENT, SLEEPING ON COUCH UNTIL HE GETS PLACED AT [facility]. PATIENT IS IMPULSIVE AND SETS OF CHAIR ALARM AT TIMES. DR. MONTANA NOTIFIED THAT DTR WOULD LIKE TO TAKE PATIENT HOME, IF NO FURTHER WORK UP OR TREATMENT NECESSARY. DR. MONTANA ALSO NOTIFIED PATIENT HAS AN OPEN AREA IN HIS GLUTEAL CREASE AND TO HIS RIGHT BUTTOCK. DR. MONTANA WILL PUT IN DC HOME ORDERS. PHOTOS TAKEN. APPLIED SKIN PREP AND AND ALLYVN BOARDER FOAM X2.
--- NOTE | 2019-12-08 15:46 | CM.DANOTE ---
DCP Assessment: EMR reviewed: Patient is a 84 yr old man with HX of parkinsons and dementia and was admitted to [facility] for unresponsiveness. Patients PCP is Dr Keith. CM/RN met with patient and patients daughter at the bedside and explained CM/Rn role. Patient was confused and not alert or oriented at time of CM Visit. CM/Rn talked with patients daughter who is patients next of kin. Dr. Li placed D/C orders for patient today after getting results of patients Brain MRI. PT evaluation recommended for D/C is 17/05 assist. patients family plan on staying with patient at [facility] 17/05 until patient can be accepted to [facility] care. Patient is currently 2nd on there waiting list. Patient is currently not I with ADL's and requires full care. I: Medicare and [facility] Regen. Plan: D/C back to [facility] with family who will provide 17/05 care until patient is accepted into [facility] care. No identified D/C planning needs noted at this time CM department will follow until d/c to assist with any new D/C planning needs that may arise. Cristina Verdugo RN Discharge Planning/Care Management Advanced directive, confirm from FAMILY Start: 12/07/19 21:54 Freq: Q24H Status: Active Protocol: Document 12/07/19 21:54 KJ (Rec: 12/07/19 23:43 KJ [id number]) Advance Directive, confirm on record Time 22:00 Person contacted Elina Walden received No CM Discharge Assessment Start: 12/08/19 15:37 Freq: Status: Active Protocol: Document 12/08/19 15:37 HS (Rec: 12/08/19 15:45 HS [id number]) Discharge Planning Assessment Assigned Environmental Field Team Member Cristina Verdugo RN DPOA/Assigned Designee Name Elina Merino (daughter) Contact Information [phone] Advance Directives? Yes/ POLST History Provided By Family Member,Medical Record Has Patient been admitted in last 30 No days? Prior Living Arrangements Assisted Living Comment Patient lives at [facility] and is on the list for [facility] memory care. Household Members other Comment Patient lives at an assisted living but has family stay with him 17/05 Type of transporation used prior to Relies on Others admit Facility Name Admitted From: [facility] Willing to Return to Facility? Yes Independent with ADL's No Is patient alert and oriented? No: Patient has hx of parkinsons and dementia Needs Assistance With Bathing,Grooming,Toileting, Managing Medications,Home Chores / Shopping Caregiver for Another No DME Already Rented / Owned FWW / Walker Comment patient will D/C back to [facility] assisted living until [facility] memory care has an opening for patient to admit. Discharge Plan Assisted Living Facility Referrals Initiated None needed Whiteboard Updated in Patient Room with Yes name and ext. # of Environmental Field Team Member Review Status In Process Next Review Type Continued Stay Review
--- NOTE | 2019-12-08 17:22 | PC.NURSE ---
Pt awake, alert, conversant sitting up on edge of bed. Daughter is present, attentive and involved in pt's care. Informed both parties need pt to void s/p catheter removal prior to discharge to [facility]. Both parties acknowledge understanding. Pt swallows med with sips water without difficulty and pt's daughter states will accompany pt to toilet and assist with dressing. IV removed on dayshift per report. Pt's speech is somewhat difficult to understand, but pt is persistent in making needs and wants known to staff. Allevyn x 2 intact to coccyx and buttocks. Pt wearing brief. States is continent. Per daughter's request, phone call to [facility] to discuss pt's dressings to buttocks with nurse Josiane. Received notification from [facility] staff member nurse not physcially in facility, but reachable on cell phone. This number was provided to this commercial underwriter. This commercial underwriter phoned [facility] nurse Josiane's phone number and left message to please call this commercial underwriter with number provided. Pt's daughter was informed of the above. Pt and pt's daughter were given written and verbal discharge instructions. Questions answered as appropriate. Pt's daughter states has all pt's meds and personal effects in possession. Pt reports slight dizziness when up to bathroom and reports this is chronic condition. States very brief and now resolved. BP checked @ 125/63 with HR 59. Daughter reports pt had a void in bathroom. Pt discharged via wheelchair with STAFFING MANAGER escort with daughter accompanying. Pt left hospital in stable condition without further complaints.
--- NOTE | 2019-12-13 09:15 | P.DS_ITS ---
History of Present Illness History of Present Illness Chief complaint: unresponsive Discharge Providers Provider Date of admission: 12/07/19 20:56 Discharge Date: 12/11/19 Primary care physician: Julia Keith MD Consults: 12/07/19 23:32 Consult to Discharge Planning Routine Comment: 12/08/19 08:16 Consult to Discharge Planning Routine Comment: Consult to Occupational Therapy Evaluate & Treat Comment: Physician Instructions: Evaluate and treat Consult to Physical Therapy Evaluate & Treat Comment: Physician Instructions: Evaluate and Treat Discharge provider: Randolph Wright MD Summary Hospital Course Hospital Course: 84-year-old male who presented basically comatose without clear finding patient has Parkinson's disease. No further episodes since being in the hospital. No clear etiology of his event. Possibly Parkinson's disease related. In all likelihood. Patient was back to his normal baseline status. Evaluation during hospital showed no further episodes. Discussion with his daughter patient will go back to [facility] have hospice evaluation and consultation. Parkinson's disease. Continue with current medications physical therapy a mbulation. Stable during his hospital stay think it is the underlying cause of his intermittent comatose states. Dementia Parkinson's disease related. Continue with his home dementia medication. Dementia was stable in the hospital patient was not significantly combative although he was disoriented. Paroxysmal atrial fibrillation patient is not on anticoagulation his heart rate is well controlled. During his hospital stay his heart rate was good he is not on chronic anticoagulation at this time. Hypertension. Blood pressure is a little bit high will continue to adjust blood pressure medication for blood pressure control. Blood pressure medication was adjusted and blood pressure medication looked good. Mild nutrition. Patient has moderate mild nutrition deficiency based on nutriti onal evaluation here in the hospital. Patient was provided nutrition shakes. This will continue outside of the hospital. Exam Vital Signs (past 8 hours): Oxygen Delivery Method Room Air Oxygen Flow Rate 0 Objective Labs Result Diagrams: 12/08/19 08:35 12/08/19 08:35 Discharge Plan Discharge Plan Patient Disposition: Assisted Living Other facility: [facility] Discharge orders & Medications Discharge Orders: Discharge (Order); Ordered 12/08/19 Ordered By: Saroj Li Prescriptions: Continued polyethylene glycol 3350 17 gram/dose powder 17 gram PO DAILY Qty: 510 RF: 12 esomeprazole magnesium [Nexium] 40 MG capsule,delayed release(DR/EC) 40 mg PO DAILY Qty: 0 RF: 0 donepezil [Aricept] 10 mg tablet 10 mg PO DAILY Qty: 30 RF: 6 rasagiline 1 mg tablet 1 mg PO DAILY RF: 0 tamsulosin 0.4 mg capsule 0.4 mg PO QPM RF: 0 carbidopa-levodopa 25-100 mg tablet 1 tab PO BEDTIME RF: 0 loperamide 2 mg capsule See Rx Instructions .ROUTE .COMPLEX MDD 8 RF: 0 fluticasone furoate 27.5 mcg/actuation [place],Suspension 1 spray INTRANASAL DAILY RF: 0 Rytary 48.75-195 mg Capsule, Extended Release 1 cap PO TID RF: 0 metoprolol succinate 50 mg tablet extended release 24 hr 50 mg PO DAILY RF: 0 Discontinued quetiapine 25 mg tablet 12.5 mg PO QPM RF: 0 No Action dabigatran etexilate 150 mg capsule 150 mg PO BID Qty: 180 RF: 3 quetiapine [Seroquel] 25 mg tablet 12.5 mg PO BEDTIME Qty: 30 RF: 0 Follow up/Referrals: Julia Keith MD [Primary Care Provider] - 1 Week (Please call to schedule appointment) Discharge Health Status Multidrug resistant organism: No MDRO Precautions: [place] Diet/Activity/Treatments Diet: Diet as Tolerated Visit Report/Discharge Packet Instructions: Aging Gracefully: Reducing the Risks of Polypharmacy, How to Prevent Falls, DI for Altered Mental Status Visit Report Forms: Patient Portal/API, Stroke Signs & Symptoms Discharge Data Primary Care Provider: Julia Keith Discharges patient from system. Discharge Date/Time: 12/11/19 15:24
== END 2019-12-11 15:24 | DRG 70 ==
LOC: ED 20:56 → AC 20:57
PROVIDERS: Admitting Provider Internal Medicine; Emergency Provider Emergency Medicine; PCP Family Medicine; Referring Provider Emergency Medicine; Visit Provider Family Medicine
DX: G93.41 Metabolic encephalopathy (principal); R40.2112 Coma scale, eyes open, never, at arrival to emergency department; R40.2212 Coma scale, best verbal response, none, at arrival to emergency department; E44.0 Moderate protein-calorie malnutrition; G20 Parkinson's disease; I48.0 Paroxysmal atrial fibrillation; N40.0 Benign prostatic hyperplasia without lower urinary tract symptoms; F02.80 Dementia in other diseases classified elsewhere, unspecified severity, without behavioral disturbance, psychotic disturbance, mood disturbance, and anxiety; I10 Essential (primary) hypertension; K21.9 Gastro-esophageal reflux disease without esophagitis; Z87.891 Personal history of nicotine dependence; R40.2352 Coma scale, best motor response, localizes pain, at arrival to emergency department; Z66 Do not resuscitate; Z68.21 Body mass index [BMI] 21.0-21.9, adult
CPT/HCPCS: 36415; 36600; 51701; 70450; 70548; 70553; 71045; 80048; 80053; 80305; 80320; 80329; 81001; 81003; 81015; 82140; 82550; 82553; 82805; 82962; 83605; 84145; 84146; 84443; 84484; 85025; 85610; 85730; 93005; 97116; 97161; 97162; 97530; 99223; 99232; 99238; 99285; G0480; J0515; J1650; J2310

== ENCOUNTER 2019-12-09 16:53 | Inpatient (IN) | payer MEDICARE, BC, SELFPAY ==
[2019-12-07 21:42] VITALS: BMI 23.9
[2019-12-09] VITALS (8 sets, daily range): BP systolic 126–171; BP diastolic 65–93; PULSE 42–51; RESP 11–18; TEMP 36.3–36.7; O2SAT 98–100; BMI 23.4
--- NOTE | 2019-12-09 16:59 | DI.RAD.S_ITS ---
PROCEDURE: XR CHEST 1V INDICATIONS: Possible stroke TECHNIQUE: One view of the chest was acquired. COMPARISON: [facility], MR, MR STROKE, 12/08/2019, 10:27. [facility], CT, CT STROKE, 12/09/2019, 17:25. [facility], CR, XR CHEST 1V, 03/04/2019, 17:59. FINDINGS: Surgical changes and devices: None. Lungs and pleura: An incomplete inspiratory result is noted, causing a crowded appearance to the lung markings. No focal infiltrates are seen. No pneumothorax or significant pleural effusions are seen. Mild interstitial prominence can be seen. Mediastinum: The cardiac contours are within normal limits. The aorta demonstrates calcification and tortuosity. Bones and chest wall: No suspicious bony lesions. Overlying soft tissues appear unremarkable. IMPRESSION: Low lung volumes with mild interstitial prominence. The mild interstitial prominence is likely related to artifact from the poor inspiratory result. However, differential diagnosis would also include a mild degree of pulmonary edema. As clinically appropriate, a short-term followup chest series (with PA and lateral views) performed in deep inspiration is suggested for further evaluation. Dictated by: Elmer Ashley M.D. on 12/09/2019 at 16:47 Approved by: Elmer Ashley M.D. on 12/09/2019 at 16:49
--- NOTE | 2019-12-09 16:59 | DI.CT.S_ITS ---
PROCEDURE: CT STROKE INDICATIONS: unresponsive. TECHNIQUE: Noncontrast 4.5 mm thick angled axial sections acquired from the foramen magnum to the vertex, with coronal reformats. For radiation dose reduction, the following was used: automated exposure control, adjustment of mA and/or kV according to patient size. COMPARISON: [facility], CT, CT HEAD/BRAIN WO CON, 11/21/2019, 9:18. [facility], CT, CT HEAD/BRAIN WO CON, 03/04/2019, 17:47. [facility], CR, XR CHEST 1V, 12/09/2019, 17:25. [facility], MR, MR STROKE, 12/08/2019, 10:27. [facility], CT, CT STROKE, 12/07/2019, 18:19. FINDINGS: Image quality: Excellent. CSF spaces: Basal cisterns are patent. No extra-axial fluid collections. The ventricles are symmetric in size and shape. Brain: No intracranial bleeds or masses. There is cerebral volume loss for age, with resultant ventricular and sulcal prominence. There are periventricular and deep white matter chronic small vessel ischemic changes. There is intracranial internal carotid artery atherosclerosis. Skull and face: Calvarium and visualized facial bones appear intact, without suspicious lesions. Sinuses: Visualized sinuses and mastoids are clear. IMPRESSION: Unremarkable intracranial study, without findings of acute hemorrhage. No CT findings of early stroke can be seen. Note: Case discussed by telephone with Dr. Quiroz at 5:50 PM [place] time on December 09, 2019. This study fulfills neurological imaging criteria for inclusion or exclusion of acute stroke therapies based on available published neurological guidelines. Dictated by: Elmer Ashley M.D. on 12/09/2019 at 16:49 Approved by: Elmer Ashley M.D. on 12/09/2019 at 16:52
[2019-12-09 17:17] LABS: Fractionated Inspired Oxygen 21; HCO3 ABG 25 mmol/L (22-26); Oxygen Saturation ABG 97 % (95-100); PCO2 ABG 36.8 mmHg (35-45); PO2 ABG 90 mmHg (80-100); TCO2 ABG 26 mmol/L (21-31); pH ABG 7.44 (7.35-7.45)
[2019-12-09] MEDS: BENZTROPINE 2 MG/2 ML AMPUL IV (17:21)
--- NOTE | 2019-12-09 17:35 | ED.AMS ---
HPI - Altered Mental Status General Chief Complaint: Altered Mental Status Stated Complaint: Altered LOC Time Seen by Provider: 12/09/19 17:16 Source: family and EMS Mode of arrival: Ambulatory History of Present Illness HPI narrative: CC: completely unresponsive-- Unable to answer questions, open eyes, follow commands. Questionably withdraws slightly to noxious stimuli. HPI:. The patient is comatose and is unable to provide any history on his own. The history is provided by the patient's son-in-law. According to the son-in-law the patient is doing exactly the same thing he did 2 days ago when he was evaluated on December 07 and admitted to the hospital. He just became unresponsive approximately 1 hour prior to coming into the emergency department. There has been no reported fall injury to his head since being discharged from the hospital. He is not on any anticoagulation according to the son-in-law and has a history of chronic paroxysmal atrial fibrillation. He has had no recent complaints. He has had no fever chills sweats, abdominal pain nausea vomiting diarrhea. There has been no complaints of chest pain. Related Data Home Medications Medication Instructions Recorded Confirmed esomeprazole magnesium [Nexium] 40 mg PO DAILY #0 01/25/17 12/09/19 metoprolol succinate 50 mg PO DAILY 11/11/18 12/09/19 carbidopa-levodopa 1 tab PO BEDTIME 11/21/19 12/09/19 loperamide See Rx Instructions .ROUTE 11/21/19 12/09/19 .COMPLEX MDD 8 rasagiline 1 mg PO DAILY 11/21/19 12/09/19 tamsulosin 0.4 mg PO QPM 11/21/19 12/09/19 Rytary 1 cap PO TID 12/07/19 12/09/19 fluticasone furoate 1 spray INTRANASAL DAILY 12/07/19 12/09/19 Previous Rx's Medication Instructions Recorded polyethylene glycol 3350 17 17 gram PO DAILY #510 gram 05/12/19 gram/dose oral powder donepezil 10 mg tablet 10 mg PO DAILY #30 tab 07/04/19 Allergies Allergy/AdvReac Type Severity Reaction Status Date / Time nitrofurantoin AdvReac Verified 12/09/19 17:22 [From Macrobid] Review of Systems Review of Systems Narrative: Due to the patient's mental status and unresponsiveness we are unable to obtain any history from the patient as well as review of systems. 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) Cataract (Chronic 2000) Chronic back pain (Chronic 1999) Colon polyps (Resolved 2001) Dementia (Chronic) Diverticular disease (Chronic 2006) Esophageal ring (Chronic 1999) Esophageal web (Chronic 1999) Fecal incontinence (Chronic 2015) GERD (gastroesophageal reflux disease) (Chronic 1999) Gout (Chronic 1969) Hayfever (Chronic 1999) Hearing loss (Chronic 1999) Herpes (Chronic 1982) Hypertension (Chronic 2007) Melanoma (Resolved 2001) Parkinson's disease (Chronic 2010) Polymyalgia rheumatica (Chronic 2010) Recurrent sinusitis (Resolved 1999) Skin cancer (Resolved 2006) Sleep apnea (Chronic 2010) Tinnitus (Chronic 2015) Urinary incontinence (Chronic 2014) Surgical History Anesthesia (Resolved) History of sinus surgery (Resolved 1989) Status post hernia repair (Resolved 1999) Family History Grandfather Heart disease Grandmother Heart disease Father Alcoholism Mother Alzheimer's disease Grandfather MVA (motor vehicle accident) Grandmother No problems noted. Social History household members: other Smoking Status: Former smoker Smoking Status: Former smoker alcohol intake frequency: 0-2 drinks per day Substance Use Type: does not use Exam Narrative Exam Narrative: PHYSICAL EXAM: CONSTITUTIONAL: The patient is unresponsive to verbal commands, does not open his eyes, does not open his eyes or respond to noxious stimuli. When asked to grasp my hands either some questionable effort in his left hand. He did not withdrawal to noxious stimuli. The patient is cachectic and appears to be chronically ill. HEAD: AT/NC EENT: Pupils are 3 mm in diameter, reactive to light. There is no nystagmus. There is no bulbar palpebra conjunctiva injection. There is no periorbital soft tissue swelling. No drainage from the ears, Tympanic membranes intact on the right without any evidence of hemotympanum or infection. The left tympanic membrane is occluded with cerumen No epistaxis or nasal drainage Oral mucosa is moist and pink, posterior pharynx is without erythema or exudate. NECK: Supple, no obvious JVD, Trachea is midline without stridor, no palpable LN or masses. THORAX: No deformity, retractions, chest wall tenderness, subcutaneous air or crepitice. LUNGS: Breath sounds are decreased bilaterally clear without rales rhonchi or wheezes. HEART: Patient has a history of paroxysmal atrial fibrillation however his heart tones are regular without murmur or extra tones. ABDOMEN: Abdomen is soft and nontender no palpable organomegaly. EXTREMITIES: There is no cyanosis but there is 1 to 2+ pitting edema without tenderness. SKIN: Skin appears pale without a rash petechia purpura or bruises. NEURO: Patient is unresponsive and ax catatonic. No response to verbal stimulus, minimal response to noxious stimuli. Pupils are 3 mm to 4 mm and reactive. There is no focal facial asymmetry. Initial Vital Signs Initial Vital Signs: Vital Signs Temperature 97.3 F L 12/09/19 16:50 Pulse Rate 45 L 12/09/19 16:50 Respiratory Rate 18 12/09/19 16:50 Blood Pressure 165/79 H 12/09/19 16:50 Pulse Oximetry 98 12/09/19 16:50 Course Course Course Narrative: 1738: MRI of the brain reveals: 1. No acute process. No recent infarct. 2 volume loss and small vessel ischemic disease. 3. Chronic right parietal lobe infarct Neck MR angiogram reveals: 1. No right internal carotid artery stenosis 2. Roughly 90% left internal carotid artery origin stenosis 3. Patent bilateral vertebral arteries ABG: PH 7.443, pCO2 36.8, PO2 90% bicarb 25.2% oxygen saturation 97% 1752 the radiologist called and stated that the patient's CT scan was normal in that there was no acute pathology hemorrhage or new infarct. 1907: I spoke with the patient's daughter they are unable to take care of him in this condition. His primary care physician is Dr. Cervantes. Will call the physician nutrition representative for Dr. Cervantes and admit the patient. [address] Wright who will admit the patient to a general medical floor as an inpatient. 1920 the patient is becoming minimally responsive at this time opening his eyes and looking straight ahead. Orders Ordered: ED Orders 12/09/19 16:59 CT Stroke Stat XR chest 1V Stat EKG-12 Lead Stat 12/09/19 17:09 Arterial Blood Gas Stat 12/09/19 17:45 Ammonia (NH3) Stat Complete Blood Count AUTO DIFF Stat Comprehensive Metabolic Panel Stat Lactate (Lactic Acid) Stat Partial Thromboplastin Time Stat Procalcitonin Stat Prothrombin Time INR Stat TSH w/ Reflex to FT4 Stat Troponin & CK Cardiac Panel Stat 12/09/19 18:27 Urinalysis and Microscopic Stat Urine Drug Screen, Rapid Stat Discontinued Medications Benztropine Mesylate (Cogentin) 2 mg IV NOW ONE Stop: 12/09/19 17:03 Last Admin: 12/09/19 17:21 Dose: 2 mg Documented by: ANOOP Vital Signs Vital signs: Vital Signs - 8 hr 12/09/19 16:50 12/09/19 17:00 12/09/19 17:15 Temperature 97.3 F L Pulse Rate 45 L 46 L 42 L Respiratory Rate 18 15 11 L Blood Pressure 165/79 H Blood Pressure [Left Arm] 139/65 137/65 Pulse Oximetry 98 100 12/09/19 18:00 12/09/19 18:15 12/09/19 19:09 Temperature 97.3 F L Pulse Rate 42 L 42 L 42 L Respiratory Rate 12 17 17 Blood Pressure 165/79 H Blood Pressure [Left Arm] 171/69 H 143/65 H Pulse Oximetry 99 99 99 12/09/19 19:30 Temperature Pulse Rate 43 L Respiratory Rate 18 Blood Pressure Blood Pressure [Left Arm] 159/67 H Pulse Oximetry 99 MDM - Altered Mental Status Medical Records Attestation: I reviewed the patient's medical records. Lab Data Attestation: I reviewed the patient's lab results. Result diagrams: 12/09/19 17:45 12/09/19 17:45 Labs: Lab Results 12/09/19 12/09/19 12/09/19 Range/Units 17:09 17:45 17:45 WBC 6.6 (4.5-11.0) X10^3/uL RBC 4.21 L (4.5-5.9) X10^6/uL Hgb 13.4 L (13.5-17.5) g/dL Hct 39.6 L (41-53) % MCV 93.9 (80-100) fL MCH 31.9 (26-34) PG MCHC 33.9 (30-36) % RDW 13.5 (11.6-14.8) % Plt Count 196 (150-400) X10^3/uL Neut % (Auto) 69.3 (50-75) % Lymph % (Auto) 19.5 L (25-40) % [place] % (Auto) 8.3 (3-14) % Eos % (Auto) 2.5 (2-4) % Baso % (Auto) 0.4 (0-2) % Neut # (Auto) 4600 (1702-0319) /uL Lymph # (Auto) 1300 (7771-6450) /uL [place] # (Auto) 600 (0-900) /uL Eos # (Auto) 200 (0-450) /uL Baso # (Auto) 0 (0-100) /uL PT 13.3 H (10.1-12.7) SECONDS INR 1.2 (0.9-1.3) APTT 53 H D (26.4-36.2) SECONDS ABG pH 7.44 (7.35-7.45) ABG pCO2 36.8 (35-45) mmHg ABG pO2 90 (80-100) mmHg ABG HCO3 25 (22-26) mmol/L ABG Total CO2 26 (21-31) mmol/L ABG O2 Saturation 97 (95-100) % ABG Base Excess 1.0 (-2-2) mmol/L FiO2 21 Sodium (137-145) mmol/L Potassium (3.4-5.1) mmol/L Chloride (98-107) mmol/L Carbon Dioxide (22-32) mmol/L BUN (9-20) mg/dL Creatinine (0.66-1.25) mg/dL Estimated GFR (>60) mL/min BUN/Creatinine Ratio (6-22) Glucose (80-110) mg/dL Lactate (0.7-2.1) mmol/L Calcium (8.4-10.2) mg/dL Total Bilirubin (0.2-1.3) mg/dL AST (17-59) IU/L ALT (<50) IU/L Alkaline Phosphatase (38-126) U/L Ammonia (9-30) umol/L Total Creatine Kinase (55-170) U/L CK-MB (CK-2) CK-MB (CK-2) Rel Index Troponin I (0.01-0.034) ng/mL Total Protein (6.3-8.2) g/dL Albumin (3.5-5.0) g/dL Globulin (1.7-4.1) g/dL Albumin/Globulin Ratio (1.0-2.8) Procalcitonin (<0.5) ng/mL TSH (0.47-4.68) uIU/mL Urine Color Urine Appearance Urine pH (4.5-8.0) Ur Specific [place] (1.000-1.035) Urine Protein (Negative) Urine Glucose (UA) (Negative) g/dL Urine Ketones (NEGATIVE) Urine Occult Blood (Negative) Urine Nitrate (Negative) Urine Bilirubin (NEGATIVE) Urine Urobilinogen (0.2) E.U./dL Ur Leukocyte Esterase (NEGATIVE) Urine RBC (0-5/HPF) Urine WBC (0-5/HPF) Ur Squamous Epith Cells (0-5/HPF) Urine Bacteria (None) Ur Culture Indicated? U Opiates 300ng/mL cut (Negative) Ur Oxycodone Screen (Negative) Urine Methadone Screen (Negative) Ur Barbiturates Screen (Negative) U Tricyclic Antidepress (Negative) Ur Phencyclidine Scrn (Negative) Ur Amphetamines Screen (Negative) U Methamphetamines Scrn (Negative) Ur MDMA Scrn (Ecstasy) (Negative) U Benzodiazepines Scrn (Negative) Urine Cocaine Screen (Negative) U Marijuana (THC) Screen (Negative) 12/09/19 12/09/19 12/09/19 Range/Units 17:45 17:45 17:45 WBC (4.5-11.0) X10^3/uL RBC (4.5-5.9) X10^6/uL Hgb (13.5-17.5) g/dL Hct (41-53) % MCV (80-100) fL MCH (26-34) PG MCHC (30-36) % RDW (11.6-14.8) % Plt Count (150-400) X10^3/uL Neut % (Auto) (50-75) % Lymph % (Auto) (25-40) % [place] % (Auto) (3-14) % Eos % (Auto) (2-4) % Baso % (Auto) (0-2) % Neut # (Auto) (1629-3777) /uL Lymph # (Auto) (2146-7134) /uL [place] # (Auto) (0-900) /uL Eos # (Auto) (0-450) /uL Baso # (Auto) (0-100) /uL PT (10.1-12.7) SECONDS INR (0.9-1.3) APTT (26.4-36.2) SECONDS ABG pH (7.35-7.45) ABG pCO2 (35-45) mmHg ABG pO2 (80-100) mmHg ABG HCO3 (22-26) mmol/L ABG Total CO2 (21-31) mmol/L ABG O2 Saturation (95-100) % ABG Base Excess (-2-2) mmol/L FiO2 Sodium 140 (137-145) mmol/L Potassium 3.9 (3.4-5.1) mmol/L Chloride 107 (98-107) mmol/L Carbon Dioxide 29 (22-32) mmol/L BUN 21 H (9-20) mg/dL Creatinine 1.00 (0.66-1.25) mg/dL Estimated GFR > 60.0 (>60) mL/min BUN/Creatinine Ratio 21.0 (6-22) Glucose 111 H (80-110) mg/dL Lactate 1.1 (0.7-2.1) mmol/L Calcium 9.7 (8.4-10.2) mg/dL Total Bilirubin 0.3 (0.2-1.3) mg/dL AST 26 (17-59) IU/L ALT 8 (<50) IU/L Alkaline Phosphatase 57 (38-126) U/L Ammonia (9-30) umol/L Total Creatine Kinase 56 (55-170) U/L CK-MB (CK-2) TNP CK-MB (CK-2) Rel Index TNP Troponin I < 0.012 (0.01-0.034) ng/mL Total Protein 5.9 L (6.3-8.2) g/dL Albumin 3.4 L (3.5-5.0) g/dL Globulin 2.5 (1.7-4.1) g/dL Albumin/Globulin Ratio 1.4 (1.0-2.8) Procalcitonin < 0.05 (<0.5) ng/mL TSH (0.47-4.68) uIU/mL Urine Color Urine Appearance Urine pH (4.5-8.0) Ur Specific [place] (1.000-1.035) Urine Protein (Negative) Urine Glucose (UA) (Negative) g/dL Urine Ketones (NEGATIVE) Urine Occult Blood (Negative) Urine Nitrate (Negative) Urine Bilirubin (NEGATIVE) Urine Urobilinogen (0.2) E.U./dL Ur Leukocyte Esterase (NEGATIVE) Urine RBC (0-5/HPF) Urine WBC (0-5/HPF) Ur Squamous Epith Cells (0-5/HPF) Urine Bacteria (None) Ur Culture Indicated? U Opiates 300ng/mL cut (Negative) Ur Oxycodone Screen (Negative) Urine Methadone Screen (Negative) Ur Barbiturates Screen (Negative) U Tricyclic Antidepress (Negative) Ur Phencyclidine Scrn (Negative) Ur Amphetamines Screen (Negative) U Methamphetamines Scrn (Negative) Ur MDMA Scrn (Ecstasy) (Negative) U Benzodiazepines Scrn (Negative) Urine Cocaine Screen (Negative) U Marijuana (THC) Screen (Negative) 12/09/19 12/09/19 12/09/19 Range/Units 17:45 17:45 18:27 WBC (4.5-11.0) X10^3/uL RBC (4.5-5.9) X10^6/uL Hgb (13.5-17.5) g/dL Hct (41-53) % MCV (80-100) fL MCH (26-34) PG MCHC (30-36) % RDW (11.6-14.8) % Plt Count (150-400) X10^3/uL Neut % (Auto) (50-75) % Lymph % (Auto) (25-40) % [place] % (Auto) (3-14) % Eos % (Auto) (2-4) % Baso % (Auto) (0-2) % Neut # (Auto) (6833-1865) /uL Lymph # (Auto) (7089-1356) /uL [place] # (Auto) (0-900) /uL Eos # (Auto) (0-450) /uL Baso # (Auto) (0-100) /uL PT (10.1-12.7) SECONDS INR (0.9-1.3) APTT (26.4-36.2) SECONDS ABG pH (7.35-7.45) ABG pCO2 (35-45) mmHg ABG pO2 (80-100) mmHg ABG HCO3 (22-26) mmol/L ABG Total CO2 (21-31) mmol/L ABG O2 Saturation (95-100) % ABG Base Excess (-2-2) mmol/L FiO2 Sodium (137-145) mmol/L Potassium (3.4-5.1) mmol/L Chloride (98-107) mmol/L Carbon Dioxide (22-32) mmol/L BUN (9-20) mg/dL Creatinine (0.66-1.25) mg/dL Estimated GFR (>60) mL/min BUN/Creatinine Ratio (6-22) Glucose (80-110) mg/dL Lactate (0.7-2.1) mmol/L Calcium (8.4-10.2) mg/dL Total Bilirubin (0.2-1.3) mg/dL AST (17-59) IU/L ALT (<50) IU/L Alkaline Phosphatase (38-126) U/L Ammonia < 9 L (9-30) umol/L Total Creatine Kinase (55-170) U/L CK-MB (CK-2) CK-MB (CK-2) Rel Index Troponin I (0.01-0.034) ng/mL Total Protein (6.3-8.2) g/dL Albumin (3.5-5.0) g/dL Globulin (1.7-4.1) g/dL Albumin/Globulin Ratio (1.0-2.8) Procalcitonin (<0.5) ng/mL TSH 1.71 (0.47-4.68) uIU/mL Urine Color Urine Appearance Urine pH (4.5-8.0) Ur Specific [place] (1.000-1.035) Urine Protein (Negative) Urine Glucose (UA) (Negative) g/dL Urine Ketones (NEGATIVE) Urine Occult Blood (Negative) Urine Nitrate (Negative) Urine Bilirubin (NEGATIVE) Urine Urobilinogen (0.2) E.U./dL Ur Leukocyte Esterase (NEGATIVE) Urine RBC (0-5/HPF) Urine WBC (0-5/HPF) Ur Squamous Epith Cells (0-5/HPF) Urine Bacteria (None) Ur Culture Indicated? U Opiates 300ng/mL cut Negative (Negative) Ur Oxycodone Screen Negative (Negative) Urine Methadone Screen Negative (Negative) Ur Barbiturates Screen Negative (Negative) U Tricyclic Antidepress Negative (Negative) Ur Phencyclidine Scrn Negative (Negative) Ur Amphetamines Screen Negative (Negative) U Methamphetamines Scrn Negative (Negative) Ur MDMA Scrn (Ecstasy) Negative (Negative) U Benzodiazepines Scrn Negative (Negative) Urine Cocaine Screen Negative (Negative) U Marijuana (THC) Screen Negative (Negative) 12/09/19 Range/Units 18:27 WBC (4.5-11.0) X10^3/uL RBC (4.5-5.9) X10^6/uL Hgb (13.5-17.5) g/dL Hct (41-53) % MCV (80-100) fL MCH (26-34) PG MCHC (30-36) % RDW (11.6-14.8) % Plt Count (150-400) X10^3/uL Neut % (Auto) (50-75) % Lymph % (Auto) (25-40) % [place] % (Auto) (3-14) % Eos % (Auto) (2-4) % Baso % (Auto) (0-2) % Neut # (Auto) (9737-6939) /uL Lymph # (Auto) (9167-7242) /uL [place] # (Auto) (0-900) /uL Eos # (Auto) (0-450) /uL Baso # (Auto) (0-100) /uL PT (10.1-12.7) SECONDS INR (0.9-1.3) APTT (26.4-36.2) SECONDS ABG pH (7.35-7.45) ABG pCO2 (35-45) mmHg ABG pO2 (80-100) mmHg ABG HCO3 (22-26) mmol/L ABG Total CO2 (21-31) mmol/L ABG O2 Saturation (95-100) % ABG Base Excess (-2-2) mmol/L FiO2 Sodium (137-145) mmol/L Potassium (3.4-5.1) mmol/L Chloride (98-107) mmol/L Carbon Dioxide (22-32) mmol/L BUN (9-20) mg/dL Creatinine (0.66-1.25) mg/dL Estimated GFR (>60) mL/min BUN/Creatinine Ratio (6-22) Glucose (80-110) mg/dL Lactate (0.7-2.1) mmol/L Calcium (8.4-10.2) mg/dL Total Bilirubin (0.2-1.3) mg/dL AST (17-59) IU/L ALT (<50) IU/L Alkaline Phosphatase (38-126) U/L Ammonia (9-30) umol/L Total Creatine Kinase (55-170) U/L CK-MB (CK-2) CK-MB (CK-2) Rel Index Troponin I (0.01-0.034) ng/mL Total Protein (6.3-8.2) g/dL Albumin (3.5-5.0) g/dL Globulin (1.7-4.1) g/dL Albumin/Globulin Ratio (1.0-2.8) Procalcitonin (<0.5) ng/mL TSH (0.47-4.68) uIU/mL Urine Color Yellow Urine Appearance Clear Urine pH 5.0 (4.5-8.0) Ur Specific [place] >=1.030 H (1.000-1.035) Urine Protein Negative (Negative) Urine Glucose (UA) Negative (Negative) g/dL Urine Ketones Negative (NEGATIVE) Urine Occult Blood Trace-lysed (Negative) Urine Nitrate Negative (Negative) Urine Bilirubin Negative (NEGATIVE) Urine Urobilinogen 1.0 (0.2) E.U./dL Ur Leukocyte Esterase Negative (NEGATIVE) Urine RBC 0-1/hpf (0-5/HPF) Urine WBC 0-1/hpf (0-5/HPF) Ur Squamous Epith Cells 0-1 /hpf (0-5/HPF) Urine Bacteria None seen (None) Ur Culture Indicated? Cult not indicated U Opiates 300ng/mL cut (Negative) Ur Oxycodone Screen (Negative) Urine Methadone Screen (Negative) Ur Barbiturates Screen (Negative) U Tricyclic Antidepress (Negative) Ur Phencyclidine Scrn (Negative) Ur Amphetamines Screen (Negative) U Methamphetamines Scrn (Negative) Ur MDMA Scrn (Ecstasy) (Negative) U Benzodiazepines Scrn (Negative) Urine Cocaine Screen (Negative) U Marijuana (THC) Screen (Negative) ECG Data Attestation: I personally reviewed and interpreted this ECG as follows: Interpretation: The patient's EKG obtained on December 09 at 16:5 6:27 a.m. reveals a sinus bradycardia with a ventricular rate of 51. QRS is prolonged at 114 milliseconds. QT QTC is within normal limits left axis deviation. Patient has a small R-wave in V2 a QS wave in V1. T-wave is inverted in V1 no other T-waves are inverted at this time. The patient has a sinus bradycardia. Discharge Plan Departure Patient Disposition: Admitted As Inpatient Clinical Impression: Parkinson's disease, Paroxysmal atrial fibrillation, Essential hypertension, Unresponsive Altered mental status Qualifiers: Altered mental status type: coma Coma depth: [place] coma 3-8 Coma timing: in the field (EMT or ambulance) Qualified Code(s): R40.2431 - [place] coma scale score 3-8, in the field [EMT or ambulance] Referrals: Julia Keith MD [Primary Care Provider] - Admit Date/Time: 12/09/19 20:05 Admit Provider: Randolph Wright
[2019-12-09 18:01] LABS: Add Manual Diff / Slide Review NO; Basophils Absolute Auto 0 /uL (0-100); Basophils Percent Auto 0.4 % (0-2); Eosinophils Absolute Auto 200 /uL (0-450); Eosinophils Percent Auto 2.5 % (2-4); Hematocrit 39.6 % (41-53); Hemoglobin 13.4 g/dL (13.5-17.5); Lymphocytes Absolute Auto 1300 /uL (1100-4500); Lymphocytes Percent Auto 19.5 % (25-40); Mean Corpuscular HGB Conc 33.9 % (30-36); Mean Corpuscular Hemoglobin 31.9 PG (26-34); Mean Corpuscular Volume 93.9 fL (80-100); Monocytes Absolute Auto 600 /uL (0-900); Monocytes Percent Auto 8.3 % (3-14); Neutrophils Absolute Auto 4600 /uL (1500-7000); Neutrophils Percent Auto 69.3 % (50-75); Platelet Count 196 X10^3/uL (150-400); Red Blood Cell Count 4.21 X10^6/uL (4.5-5.9); Red Cell Distribution Width 13.5 % (11.6-14.8); White Blood Cell Count 6.6 X10^3/uL (4.5-11.0)
[2019-12-09 18:11] LABS: INR 1.2 (0.9-1.3); Prothrombin Time 13.3 SECONDS (10.1-12.7)
[2019-12-09 18:12] LABS: Ammonia (NH3) < 9 umol/L (9-30)
[2019-12-09 18:13] LABS: Alanine Aminotransferase 8 IU/L (<50); Albumin 3.4 g/dL (3.5-5.0); Albumin Globulin Ratio 1.4 (1.0-2.8); Alkaline Phosphatase 57 U/L (38-126); Aspartate Aminotransferase 26 IU/L (17-59); Bilirubin Total 0.3 mg/dL (0.2-1.3); Blood Urea Nitrogen 21 mg/dL (9-20); Calcium 9.7 mg/dL (8.4-10.2); Carbon Dioxide 29 mmol/L (22-32); Chloride 107 mmol/L (98-107); Creatine Kinase 56 U/L (55-170); Estimated Glomerular Filt Rate > 60.0 mL/min (>60); Globulin 2.5 g/dL (1.7-4.1); Glucose 111 mg/dL (80-110); HEMOLYSIS < 15 (0-50); Potassium 3.9 mmol/L (3.4-5.1); Sodium 140 mmol/L (137-145); Total Protein 5.9 g/dL (6.3-8.2)
[2019-12-09 18:14] LABS: Lactate (Lactic Acid) 1.1 mmol/L (0.7-2.1); PTT Partial Thromboplastin Tim 53 SECONDS (26.4-36.2)
[2019-12-09 18:25] LABS: Troponin I < 0.012 ng/mL (0.01-0.034)
[2019-12-09 18:43] LABS: Bacteria Urine None Seen
[2019-12-09 18:50] LABS: Appearance Urine UA CLEAR; Bilirubin Urine UA NEGATIVE (NEGATIVE); Color Urine UA YELLOW; Glucose Urine UA NEGATIVE (Negative); Ketones Urine UA NEGATIVE (NEGATIVE); Leukocyte Esterase Urine UA NEGATIVE (NEGATIVE); Nitrite Urine UA NEGATIVE (Negative); Occult Blood Urine UA TRACE-LYSED (Negative); Protein Urine UA NEGATIVE (Negative); Specific Gravity Urine UA >=1.030 (1.000-1.035)
[2019-12-09 18:56] LABS: Procalcitonin < 0.05 ng/mL (<0.5)
[2019-12-09 18:58] LABS: UR Morphine/Opiate cutoff 300 Negative (Negative); Ur Creatinine Normal (Normal); Ur Specific Gravity Normal (Normal); Urine Amphetamines Negative (Negative); Urine Barbiturates Negative (Negative); Urine Benzodiazepines Negative (Negative); Urine Cocaine Negative (Negative); Urine MDMA Negative (Negative); Urine Methadone Negative (Negative); Urine Methamphetamines Negative (Negative); Urine Oxycodone Negative (Negative); Urine Phencyclidine Negative (Negative); Urine Tetrahydrocannabinol Negative (Negative); Urine Tricyclic Antidepressant Negative (Negative); Urine pH Normal (Normal)
[2019-12-09 19:00] LABS: TSH w/ Reflex to FT4 1.71 uIU/mL (0.47-4.68)
[2019-12-09 19:05] LABS: Culture Indicated Urine Cult Not Indicated; RBC Urine 0-1/HPF (0-5/HPF); Squamous Epithelial Cell Urine 0-1 /HPF (0-5/HPF); WBC Urine 0-1/HPF (0-5/HPF)
--- NOTE | 2019-12-09 20:14 | PM.HP.1 ---
History of Present Illness History of Present Illness Date Patient Seen: 12/09/19 Time Patient Seen: 20:14 Chief complaint: Altered LOC Narrative: Patient brought in again by family for a loss of consciousness. Patient was in his usual state of health. The son was there at his bed side having a conversation and patient became unconscious unresponsive. Patient was not responsive to voice movement or commands. He was not able to talk. He had spontaneous respirations. Did not have episode of what appears to be syncope. Had postural tones there was no seizure-like activity or movement. Patient did withdrawal from noxious stimuli. He on arrival to the emergency department patient was on could responsive. Not able to voice commands. Over the next few hours in the emergency department patient became more aware and arousable. On my evaluation patient is talking in complete sentences eating breakfast. He is confused and a month sure what his baseline is. Patient has not had any recent falls trauma. Patient lives at home with considerable amount of help from family. Patient was admitted to the hospital approximately 48 hours ago with similar symptoms and similar problems. Patient had a extensive workup at that visit CT scan MRI laboratory testing toxicology screening and blood work which was all essentially unremarkable. Patient does have a past medical history consistent with Parkinson's disease dementia BPH paroxysmal atrial fibrillation gastroesophageal reflux hypertension and obstructive sleep apnea. He is on a number Parkinson's medications. His urine toxicology in urine alcohol are negative his CT scan on this admission is normal. 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) Cataract (Chronic 1999) Chronic back pain (Chronic 1999) Colon polyps (Resolved 2001) Dementia (Chronic) Diverticular disease (Chronic 2006) Esophageal ring (Chronic 1999) Esophageal web (Chronic 1999) Fecal incontinence (Chronic 2014) GERD (gastroesophageal reflux disease) (Chronic 1999) Gout (Chronic 1969) Hayfever (Chronic 1999) Hearing loss (Chronic 1999) Herpes (Chronic 1982) Hypertension (Chronic 2007) Melanoma (Resolved 2001) Parkinson's disease (Chronic 2010) Polymyalgia rheumatica (Chronic 2010) Recurrent sinusitis (Resolved 1999) Skin cancer (Resolved 2006) Sleep apnea (Chronic 2010) Tinnitus (Chronic 2015) Urinary incontinence (Chronic 2014) Surgical History Anesthesia (Resolved) History of sinus surgery (Resolved 1989) Status post hernia repair (Resolved 1999) Family & Social History Family History Grandfather Heart disease Grandmother Heart disease Father Alcoholism Mother Alzheimer's disease Grandfather MVA (motor vehicle accident) Grandmother No problems noted. Social History: household members other Safety & Behavioral: Feels Safe in Current Yes Environment Been Physically Hurt or No Threatened By a Person Tobacco & Substance use: Smoking Status Former smoker alcohol intake frequency 0-2 drinks per day Substance Use Type does not use Meds Home Medications and Allergies Home Medications Medication Instructions Recorded Confirmed Type esomeprazole magnesium [Nexium] 40 mg PO DAILY #0 01/25/17 12/09/19 History metoprolol succinate 50 mg PO DAILY 11/11/18 12/09/19 History polyethylene glycol 3350 17 17 gram PO DAILY #510 gram 05/12/19 12/09/19 Rx gram/dose oral powder donepezil 10 mg tablet 10 mg PO DAILY #30 tab 07/04/19 12/09/19 Rx carbidopa-levodopa 1 tab PO BEDTIME 11/21/19 12/09/19 History loperamide See Rx Instructions .ROUTE 11/21/19 12/09/19 History .COMPLEX MDD 8 rasagiline 1 mg PO DAILY 11/21/19 12/09/19 History tamsulosin 0.4 mg PO QPM 11/21/19 12/09/19 History Rytary 1 cap PO TID 12/07/19 12/09/19 History fluticasone furoate 1 spray INTRANASAL DAILY 12/07/19 12/09/19 History Allergies Allergy/AdvReac Type Severity Reaction Status Date / Time nitrofurantoin AdvReac Verified 12/09/19 17:22 [From Macrobid] Exam Vital Signs (past 8 hours): - 12/09/19 16:50 12/09/19 17:00 12/09/19 17:15 Temperature 97.3 F L Pulse Rate 45 L 46 L 42 L Respiratory Rate 18 15 11 L Blood Pressure 165/79 H Blood Pressure [Left Arm] 139/65 137/65 Pulse Oximetry 98 100 12/09/19 18:00 12/09/19 18:15 12/09/19 19:09 Temperature 97.3 F L Pulse Rate 42 L 42 L 42 L Respiratory Rate 12 17 17 Blood Pressure 165/79 H Blood Pressure [Left Arm] 171/69 H 143/65 H Pulse Oximetry 99 99 99 12/09/19 19:30 Temperature Pulse Rate 43 L Respiratory Rate 18 Blood Pressure Blood Pressure [Left Arm] 159/67 H Pulse Oximetry 99 Oxygen Delivery Method Room Air Narrative Exam Narrative: Gen.: Alert no apparent distress talking coherently eating. Confused to place and time and date HEENT: Pupils equal round and reactive tympanic membranes are patent oral mucosa is moist neck is supple Cardio: S1-S2 systolic murmur present Respiratory: Lungs are clear to auscultation no wheezes or crackles normal respiratory effort. Abdomen: Soft nontender no rebound or guarding no liver spleen enlargement no appreciable hernias Extremities: Full range of motion no appreciable weakness no cyanosis or edema. Neurologic: Tremor bradykinesia Objective Labs Result Diagrams: 12/10/19 04:30 12/10/19 04:30 Labs: Laboratory Results - last 24 hr 12/09/19 12/09/19 12/09/19 17:09 17:45 17:45 WBC 6.6 RBC 4.21 L Hgb 13.4 L Hct 39.6 L MCV 93.9 MCH 31.9 MCHC 33.9 RDW 13.5 Plt Count 196 Neut % (Auto) 69.3 Lymph % (Auto) 19.5 L Mills % (Auto) 8.3 Eos % (Auto) 2.5 Baso % (Auto) 0.4 Neut # (Auto) 4600 Lymph # (Auto) 1300 Mills # (Auto) 600 Eos # (Auto) 200 Baso # (Auto) 0 PT 13.3 H INR 1.2 APTT 53 H D ABG pH 7.44 ABG pCO2 36.8 ABG pO2 90 ABG HCO3 25 ABG Total CO2 26 ABG O2 Saturation 97 ABG Base Excess 1.0 FiO2 21 Sodium Potassium Chloride Carbon Dioxide BUN Creatinine Estimated GFR BUN/Creatinine Ratio Glucose Lactate Calcium Total Bilirubin AST ALT Alkaline Phosphatase Ammonia Total Creatine Kinase CK-MB (CK-2) CK-MB (CK-2) Rel Index Troponin I Total Protein Albumin Globulin Albumin/Globulin Ratio Procalcitonin TSH Urine Color Urine Appearance Urine pH Ur Specific [place] Urine Protein Urine Glucose (UA) Urine Ketones Urine Occult Blood Urine Nitrate Urine Bilirubin Urine Urobilinogen Ur Leukocyte Esterase Urine RBC Urine WBC Ur Squamous Epith Cells Urine Bacteria Ur Culture Indicated? U Opiates 300ng/mL cut Ur Oxycodone Screen Urine Methadone Screen Ur Barbiturates Screen U Tricyclic Antidepress Ur Phencyclidine Scrn Ur Amphetamines Screen U Methamphetamines Scrn Ur MDMA Scrn (Ecstasy) U Benzodiazepines Scrn Urine Cocaine Screen U Marijuana (THC) Screen 12/09/19 12/09/19 12/09/19 17:45 17:45 17:45 WBC RBC Hgb Hct MCV MCH MCHC RDW Plt Count Neut % (Auto) Lymph % (Auto) Mills % (Auto) Eos % (Auto) Baso % (Auto) Neut # (Auto) Lymph # (Auto) Mills # (Auto) Eos # (Auto) Baso # (Auto) PT INR APTT ABG pH ABG pCO2 ABG pO2 ABG HCO3 ABG Total CO2 ABG O2 Saturation ABG Base Excess FiO2 Sodium 140 Potassium 3.9 Chloride 107 Carbon Dioxide 29 BUN 21 H Creatinine 1.00 Estimated GFR > 60.0 BUN/Creatinine Ratio 21.0 Glucose 111 H Lactate 1.1 Calcium 9.7 Total Bilirubin 0.3 AST 26 ALT 8 Alkaline Phosphatase 57 Ammonia Total Creatine Kinase 56 CK-MB (CK-2) TNP CK-MB (CK-2) Rel Index TNP Troponin I < 0.012 Total Protein 5.9 L Albumin 3.4 L Globulin 2.5 Albumin/Globulin Ratio 1.4 Procalcitonin < 0.05 TSH Urine Color Urine Appearance Urine pH Ur Specific [place] Urine Protein Urine Glucose (UA) Urine Ketones Urine Occult Blood Urine Nitrate Urine Bilirubin Urine Urobilinogen Ur Leukocyte Esterase Urine RBC Urine WBC Ur Squamous Epith Cells Urine Bacteria Ur Culture Indicated? U Opiates 300ng/mL cut Ur Oxycodone Screen Urine Methadone Screen Ur Barbiturates Screen U Tricyclic Antidepress Ur Phencyclidine Scrn Ur Amphetamines Screen U Methamphetamines Scrn Ur MDMA Scrn (Ecstasy) U Benzodiazepines Scrn Urine Cocaine Screen U Marijuana (THC) Screen 12/09/19 12/09/19 12/09/19 17:45 17:45 18:27 WBC RBC Hgb Hct MCV MCH MCHC RDW Plt Count Neut % (Auto) Lymph % (Auto) Mills % (Auto) Eos % (Auto) Baso % (Auto) Neut # (Auto) Lymph # (Auto) Mills # (Auto) Eos # (Auto) Baso # (Auto) PT INR APTT ABG pH ABG pCO2 ABG pO2 ABG HCO3 ABG Total CO2 ABG O2 Saturation ABG Base Excess FiO2 Sodium Potassium Chloride Carbon Dioxide BUN Creatinine Estimated GFR BUN/Creatinine Ratio Glucose Lactate Calcium Total Bilirubin AST ALT Alkaline Phosphatase Ammonia < 9 L Total Creatine Kinase CK-MB (CK-2) CK-MB (CK-2) Rel Index Troponin I Total Protein Albumin Globulin Albumin/Globulin Ratio Procalcitonin TSH 1.71 Urine Color Urine Appearance Urine pH Ur Specific [place] Urine Protein Urine Glucose (UA) Urine Ketones Urine Occult Blood Urine Nitrate Urine Bilirubin Urine Urobilinogen Ur Leukocyte Esterase Urine RBC Urine WBC Ur Squamous Epith Cells Urine Bacteria Ur Culture Indicated? U Opiates 300ng/mL cut Negative Ur Oxycodone Screen Negative Urine Methadone Screen Negative Ur Barbiturates Screen Negative U Tricyclic Antidepress Negative Ur Phencyclidine Scrn Negative Ur Amphetamines Screen Negative U Methamphetamines Scrn Negative Ur MDMA Scrn (Ecstasy) Negative U Benzodiazepines Scrn Negative Urine Cocaine Screen Negative U Marijuana (THC) Screen Negative 12/09/19 18:27 WBC RBC Hgb Hct MCV MCH MCHC RDW Plt Count Neut % (Auto) Lymph % (Auto) Mills % (Auto) Eos % (Auto) Baso % (Auto) Neut # (Auto) Lymph # (Auto) Mills # (Auto) Eos # (Auto) Baso # (Auto) PT INR APTT ABG pH ABG pCO2 ABG pO2 ABG HCO3 ABG Total CO2 ABG O2 Saturation ABG Base Excess FiO2 Sodium Potassium Chloride Carbon Dioxide BUN Creatinine Estimated GFR BUN/Creatinine Ratio Glucose Lactate Calcium Total Bilirubin AST ALT Alkaline Phosphatase Ammonia Total Creatine Kinase CK-MB (CK-2) CK-MB (CK-2) Rel Index Troponin I Total Protein Albumin Globulin Albumin/Globulin Ratio Procalcitonin TSH Urine Color Yellow Urine Appearance Clear Urine pH 5.0 Ur Specific [place] >=1.030 H Urine Protein Negative Urine Glucose (UA) Negative Urine Ketones Negative Urine Occult Blood Trace-lysed Urine Nitrate Negative Urine Bilirubin Negative Urine Urobilinogen 1.0 Ur Leukocyte Esterase Negative Urine RBC 0-1/hpf Urine WBC 0-1/hpf Ur Squamous Epith Cells 0-1 /hpf Urine Bacteria None seen Ur Culture Indicated? Cult not indicated U Opiates 300ng/mL cut Ur Oxycodone Screen Urine Methadone Screen Ur Barbiturates Screen U Tricyclic Antidepress Ur Phencyclidine Scrn Ur Amphetamines Screen U Methamphetamines Scrn Ur MDMA Scrn (Ecstasy) U Benzodiazepines Scrn Urine Cocaine Screen U Marijuana (THC) Screen Assessment & Plan Assessment & Plan narrative: 84-year-old male who presented basically comatose without clear finding patient has Parkinson's disease. Urine toxicology alcohol testing is normal. Laboratory testing is unrevealing CT scan and MRI of the brain is also unrevealing. Patient is back to his baseline. Wondering if this is some component of Parkinson's disease or medication. He lives at home with the help caregivers as this is quite burdensome for him. They have made arrangements for him to be placed in some type of a long-term assisted living. But that is not for a number of weeks yet. I do not think this is any type of medication side effects. And he has responded to me well. Will have social studies department chair visit with him and family today and provide placement. I think this is going to be an ongoing issue for him. Or monitor [employer] function laboratory test today. Will have them DC is Simmons catheter and Hep-Lock his IV as he is eating now. Parkinson's disease. Continue with home therapy. Have physical therapy evaluation in ambulation. Dementia Parkinson's disease related. Continue with his home dementia medication. Paroxysmal atrial fibrillation patient is not on anticoagulation his heart rate is well controlled. Hypertension. Blood pressure is a little bit high will continue to adjust blood pressure medication for blood pressure control. Disposition plan code status is a no code. Patient will receive physical therapy occupational therapy and most likely will need fpc care until discharge is able to be made as patient is obviously not safe to go home. n.
[2019-12-09] MEDS: LACTATED RINGERS 1,000 ML 100 ML IV (20:45)
--- NOTE | 2019-12-09 22:00 | PC.NURSE ---
Pt wtih aspiration risk- unable to open his eyes right now even though he can describe some things and answer appropriately. LOC decreased. Holding PM med for now. Home dose medication to be brought in by daughter tomorrow. Dr. de la rosa aware that staff would hold meds if pt was too obtunded.
[2019-12-10] VITALS (7 sets, daily range): BP systolic 104–160; BP diastolic 51–105; PULSE 44–60; RESP 14–19; TEMP 36.5–37.1; O2SAT 96–99
[2019-12-10 04:48] LABS: Add Manual Diff / Slide Review NO; Basophils Absolute Auto 0 /uL (0-100); Basophils Percent Auto 0.2 % (0-2); Eosinophils Absolute Auto 200 /uL (0-450); Eosinophils Percent Auto 2.1 % (2-4); Hematocrit 40.3 % (41-53); Hemoglobin 13.4 g/dL (13.5-17.5); Lymphocytes Absolute Auto 1600 /uL (1100-4500); Lymphocytes Percent Auto 20.6 % (25-40); Mean Corpuscular HGB Conc 33.2 % (30-36); Mean Corpuscular Hemoglobin 31.4 PG (26-34); Mean Corpuscular Volume 94.8 fL (80-100); Monocytes Absolute Auto 600 /uL (0-900); Monocytes Percent Auto 8.4 % (3-14); Neutrophils Absolute Auto 5300 /uL (1500-7000); Neutrophils Percent Auto 68.7 % (50-75); Platelet Count 193 X10^3/uL (150-400); Red Blood Cell Count 4.25 X10^6/uL (4.5-5.9); Red Cell Distribution Width 13.7 % (11.6-14.8); White Blood Cell Count 7.7 X10^3/uL (4.5-11.0)
[2019-12-10 04:53] LABS: Alanine Aminotransferase 12 IU/L (<50); Albumin 3.3 g/dL (3.5-5.0); Albumin Globulin Ratio 1.2 (1.0-2.8); Alkaline Phosphatase 54 U/L (38-126); Aspartate Aminotransferase 25 IU/L (17-59); BUN Creatinine Ratio 21.3 (6-22); Bilirubin Total 0.7 mg/dL (0.2-1.3); Blood Urea Nitrogen 17 mg/dL (9-20); Calcium 9.6 mg/dL (8.4-10.2); Carbon Dioxide 30 mmol/L (22-32); Chloride 107 mmol/L (98-107); Estimated Glomerular Filt Rate > 60.0 mL/min (>60); Globulin 2.7 g/dL (1.7-4.1); Glucose 95 mg/dL (80-110); HEMOLYSIS < 15 (0-50); Sodium 140 mmol/L (137-145)
--- NOTE | 2019-12-10 06:28 | PC.NURSE ---
Decorative [employer] Cutter Note: 0300: Pt sleeping intermittently. IV in place in rt forearm. Simmons catheter patent, urine is clear yellow. Pt is alert when awake, but oriented to self only.
[2019-12-10] MEDS: LACTATED RINGERS 1,000 ML 100 ML IV (06:38)
[2019-12-10] MEDS: CARBIDOPA LEVODOPA 1 EACH PO ×3 (09:52→20:05)
[2019-12-10] MEDS: DONEPEZIL 5 MG TABLET 10 MG PO (09:56)
[2019-12-10] MEDS: ENOXAPARIN 40 MG/0.4 ML SYRINGE SUBCUT (09:56)
--- NOTE | 2019-12-10 10:04 | PC.NURSE ---
Addendum entered by Ella Dc CNA 12/10/19 10:24: Pt was awake with eyes wide open and drank 650ml of coffee this morning daughter cane in this morning . Pt got up to the [facility] with 2 max/gait belt PA at 0830 then transferred to chair. Original Note: Pt sitting in chair, 2 pa when up. Pt is hallucinating about a saw blade coming through the ceiling, seeing more than one person, and having imaginary people in the room. Pt will lean forward with eyes closed searching for hallucinatory objects that are in front. Pt will answer some questions occasionally doesn't open his eyes when being talked to or sometimes asked to open them. Pt is trying to take a nap in the peewee. every so often he will start to stir and try to get from the chair with his eyes closed, I will ask where he was going and he will tell me I don't know. 1:1
--- NOTE | 2019-12-10 13:48 | CM.DANOTE ---
Addendum entered by Shaina Guzman R.N. 12/10/19 15:59: Was able to meet with daughter, Zita, as well, who is very supportive. Her only concern is finding why her dad is having these episodes, and is hoping to talk to Dr. Wright before patient is discharged. Patient is inpatient status, so skilled is an option, but family feel he is more comfortable in his own home. Original Note: DCP: Case received, EMR reviewed and met with patient and son-in-law, Rip. Was able to sit with son-in-law and obtain information regarding baseline activity level, health, and living situation. Was also able to get more information from jessica Roe at [facility]. DCP assessment completed with information currently available. Patient is an 84 year old male who admitted yesterday evening to the care of the hospitalist team. PCP: Dr. Keith. Payer: Medicare/BS Out of [facility]. Patient came to the hospital via ambulance secondary to decreased level of consciousness, as well as non-responsive episode. Patient resides at [facility], and has history of Parkinson's. Patient was noted to have bradycardia. Met with patient briefly in room before this caser shoe parts was able to meet with son-n-law Rip Mehta. Patient was sitting up, pleasant, alert, some confusion noted. Noted some visible tremors. Was able to meet with son-in-law later in the morning. He stated that patient lives at [facility], but family needs to stay with him round the clock, because of his history of hallucinations. He also mentioned safety, and occasionally, staff had found him on the floor near his recliner, for he had forgotten how to operate. At this time, [facility] requires that family stay with patient due to behaviors, and they take turns. He is on the waiting list for [facility], and is second in line. Rip stated that money is no issues, and has the financial means to go to memory care. Patient has been 4 times. Son stated, he is getting to the end stage of his Parkinson's. Son stated that he does not have swallowing issues, but does have some trouble holding his utensils. Confirmed with Jyothi caregiver at [facility], that patient is level one care, but they have been increasing some services, such as assisting with eating, and offering to help with meals. She stated that the requirement for family to stay with patient is secondary to safety. Let son-in-law know that [facility] is reviewing case, and status is unknown, regarding OBS/Inpatient. Son-in-law mentioned that patient's daughter, Elina, who is his is very involved, she is just out of town. Between him, daughter, grand son, they take turns staying with patient. He mentioned that they will continue to do so until [facility] can accept patient. P: DCP to continue to follow. It is unknown at this time if patient will be able to go [facility] [place] [facility], since case is continuing to be reviewed. May need to return back to [facility], but home health would be an option. Mentioned this to son-in-law, and gave him Medicare Choice List for agencies. Also, gave him a card with care management's phone number on it with questions. Shaina Guzman RN/Pilates Coordinator
--- NOTE | 2019-12-10 14:50 | PT.IIE ---
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) Cataract (Chronic 1999) Chronic back pain (Chronic 1999) Colon polyps (Resolved 2001) Dementia (Chronic) Diverticular disease (Chronic 2006) Esophageal ring (Chronic 1999) Esophageal web (Chronic 1999) Fecal incontinence (Chronic 2015) GERD (gastroesophageal reflux disease) (Chronic 1999) Gout (Chronic 1969) Hayfever (Chronic 1999) Hearing loss (Chronic 1999) Herpes (Chronic 1982) Hypertension (Chronic 2007) Melanoma (Resolved 2001) Parkinson's disease (Chronic 2010) Polymyalgia rheumatica (Chronic 2010) Recurrent sinusitis (Resolved 1999) Skin cancer (Resolved 2006) Sleep apnea (Chronic 2010) Tinnitus (Chronic 2015) Urinary incontinence (Chronic 2014) Physical Therapy Inpatient Evaluation/Re-Eval M1 PT/OT-IP Prior Functional Status Start: 12/10/19 14:17 Freq: NEEDED Status: Active Protocol: Document 12/10/19 14:17 NFW (Rec: 12/10/19 14:50 NFW [id number]) Medical Review Prior Functional Status Medical History Reviewed Yes Communication Pt's CECILIO present during treatment and answering questions. Mobility and Gait Pt report that he prefers not to use any assistive devices with ambulation but if he does will use a SPC. He does available to him FWW and 4WW, w/c. Activities of Daily Living and IADL's Pt reports that he needs some assist with dressing especially with compression socks and shoes. Ocassional assist with shaving and reports independence with showering. According to CECILIO, pt needs assist with eating such as cutting his meat and continuing with the task. He also reports that he attempts to walk down to the dining cooney but frequently is assisted with a w/c. Social History Household Members other Living Arrangements [facility]ci Facility Additional Social History Comment Pt lives at [facility]. On 12/05/19 the family was informed by [facility] that 24/7 assistance is required for the pt when he is there. The patient is on the waiting list for [facility], he is second in line. Family hopes that he could move there in ~ 1 week. M2 PT-IP Current Condition Start: 12/10/19 14:17 Freq: NEEDED Status: Active Protocol: Document 12/10/19 14:17 NFW (Rec: 12/10/19 14:50 NFW [id number]) Physical Therapy Current Condition Current Condition Evaluation Date 12/10/19 Treatment Diagnosis LOC; Parkinson's; increase weakness Precautions Other Precautions High Fall Risk. Recommend assist with all transfers. M3 PT-IP Subjective Start: 12/10/19 14:17 Freq: NEEDED Status: Active Protocol: Document 12/10/19 14:17 NFW (Rec: 12/10/19 14:50 NFW [id number]) Subjective Physical Therapy Visit Type Type Initial Evaluation Visit Start Time 13:10 Visit Stop Time 14:10 Total Visit Minutes 60 Number of PAYROLL BOOKKEEPER Visits 0 Physical Therapy Visit Comments Patient Comments Pt followed instructions, occasional repetition required . Occasional signs of confusion. Therapy Pain Assessment Pain Present Pain Present Denied Pain M4 PT-IP Mobility and Gait Start: 12/10/19 14:17 Freq: NEEDED Status: Active Protocol: Document 12/10/19 14:17 NFW (Rec: 12/10/19 14:50 NFW [id number]) PT-Bed Mobility Assessment Rolling Level of Assist Independent Supine to Sit Supine to Sit Contact Guard Assistance,1 Person Assistance Sit to Supine Sit to Supine Contact Guard Assistance,1 Person Assistance Scooting Scooting to Edge of Bed Contact Guard Assistance Scooting Up and Down in Bed Standby Assistance PT-Transfer Assessment Sit to and From Stand Sit to and from Stand Minimal Assistance,1 Person Assistance,Use of Upper Extremities Equipment Transfer Assistive Device Gait Belt,Front Wheeled Walker Orthotic/Prosthetic Devices or Brace: No Transfers Transfer Destination Bed,Chair Transfer Ability Level of Assist Minimal Assistance,1 Person Assistance Comments Mobility Comments Pt requires instruction with repetition of proper technique with transitional activities. Tremors noticed with initiating activity with some ataxia. Gait Assessment Gait Gait Assistance Required: Minimum Assistance,1 Person Assist Distance (Feet) 140 Able to Maintain Weight Bearing Status Yes During Gait Assistive Devices Assistive Device Gait Belt,Front Wheeled Walker Orthotic/Prosthetic Devices or Brace: No Gait Deviations General Gait Pattern Ataxic,Decreased Stride Length ,Decreased Feet Clearance, Festinating,Flexed Trunk, Lateral Trunk Lean,Narrow Based Gait,Step-to Gait Factors Limiting Gait Function Factors Limiting Gait Function Abnormal Tonal Influences, Decreased Activity Tolerance, Decreased Strength, Incoordination,Poor Balance, Poor Safety Awareness Comments Gait Comments Ambulated around the nursing station with CGA, FWW and w/c following behind. Guidance needed with FWW, instruction for pacing and correcting upright posture. Required balance assist using gait belt several times. PT-Balance Assessment Sitting Balance and Reactions Static Sitting Balance Ability Good Dynamic Sitting Balance Ability Good Standing Balance and Reactions Static Standing Balance Ability Fair Dynamic Standing Balance Ability Poor M5 PT-IP Objective Assessments Start: 12/10/19 14:17 Freq: NEEDED Status: Active Protocol: Document 12/10/19 14:17 NFW (Rec: 12/10/19 14:50 NFW [id number]) Orientation Orientation/Cognition Level of Alertness Confusional State Orientation Name,Age,Place Language Function Ability Garbled Speech Safety Awareness Decreased Safety Awareness Comments As stated previously pt followed repeated instructions . He was cooperative. Answered most questions correctly. Gross Range of Motion Upper Extremity ROM Assessment Within Functional Limits Lower Extremity ROM Assessment Within Functional Limits Strength Upper Extremity Strength Assessment Within Functional Limits Lower Extremity Strength Assessment Within Functional Limits Comments Strength Comments Left UE weaker than right. Coordination Assessment Assessment Foot Tapping Test Minimal Impairment Heel on Blanc Test Minimal Impairment Muscle Tone Muscle Tone WNL Yes M7 PT-IP Assessment and Plan Start: 12/10/19 14:17 Freq: NEEDED Status: Active Protocol: Document 12/10/19 14:17 NFW (Rec: 12/10/19 14:50 NFW [id number]) PT Summary Assessment and Plan Potential Rehabilitation Potential Fair Status of Condition at Evaluation Evolving Summary Impairments Strength,Balance,Coordination, Cognition,Bed Mobility, Transfers,Gait,Activity Tolerance Progress Towards Goals Progressing Toward Goals Assessment Summary Pt admitted to ER secondary to LOC. Second admittance in one week. Has history of Parkinson's with notable affect on his ability in ambulation and transitional activities. In ambulation recommend CGA with gait belt and FWW for limited distances. Do not recommend that he transfers on his own. Goals Bed Mobility Goal Independent Transfer Goal Contact Guard Assistance Gait Goal Contact Guard Assistance,Front Wheel Walker Gait Distance 200 Days to Meet Goals 3 Frequency of Treatment Frequency Of Treatment Once a Day Treatment Plan Physical Therapy Treatment Plan Transfer Training,Gait Training,Therapeutic Exercise, Balance Retraining Discharge Recommendations PT Discharge Recommendations Home with 24/ Assist,SNF Rehab Other Discharge Recommendations Pt awaiting admittion to [facility] Care Equipment Needed for Home Before FWW Discharge
[2019-12-10] MEDS: TAMSULOSIN 0.4 MG CAPSULE PO (17:32)
--- NOTE | 2019-12-10 19:14 | PC.NURSE ---
Barrier cream applied to intergluteal cleft for skin tear and left buttocks. Did not place dressing d/t pt being incontinent at times. No change since admission on skin. 1:1 sitter continues. Pt remains somewhat oriented A&Ox2. Ate 75% of dinner, tolerated well. Ambulated with PERSONAL FITNESS TRAINER around ICU with walker.
[2019-12-10] MEDS: CARBIDOPA-LEVODOPA 25/100 TABLET 1 EACH PO (20:05)
--- NOTE | 2019-12-11 01:40 | PC.NURSE ---
Addendum entered by Remigio Mendez R.N. 12/11/19 04:08: IV found laying in bed. Restarted in rt upper forearm. Original Note: Work Environment Safety Inspector Note: 0100: Sleeping intermittently. Vital signs stable. IV in place in rt forearm. SCDs off due to agitating patient. Assisted to use urinal several times but hasn't voided. Sitter at bedside.
[2019-12-11 05:00] VITALS: BP 130/86; PULSE 51; RESP 16; TEMP 36.6; O2SAT 99
[2019-12-11 08:00] VITALS: BP 158/65; PULSE 61; RESP 16; TEMP 36.7; O2SAT 99
--- NOTE | 2019-12-11 08:21 | PM.PN.1 ---
Subjective Subjective Date Patient Seen: 12/11/19 Time Patient Seen: 08:22 Interval history: Patient seen and evaluated this morning. Discussed care in case with daughter at bedside. Daughter son-in-law and grandson providing additional assistance at [facility]. Has anticipation going to the [facility] care [facility]. But they are on a wait list there. Second admission for mom mental status changes confusion comatose. With no unknown etiology explained. He is back to normal now without further episodes of this since his hospitalization. Question my other this may be related to his Parkinson's disease. Still not sleeping well during the night. Exam Vital Signs (past 8 hours): - 12/11/19 05:00 Temperature 97.9 F Pulse Rate 51 L Respiratory Rate 16 Blood Pressure 130/86 Pulse Oximetry 99 Oxygen Delivery Method Room Air Oxygen Flow Rate 0 Narrative Exam Narrative: Gen.: Alert arousable. Disoriented to place and time HEENT: Pupils equal round and reactive or mucosa is moist neck is supple. Cardio: Irregular rate small systolic murmur Respiratory: Lungs are clear Abdomen: Soft nontender Extremities: Some rigidity and tremor Objective Labs Result Diagrams: 12/10/19 04:30 12/10/19 04:30 Assessment & Plan Assessment & Plan narrative: 84-year-old male who presented basically comatose without clear finding patient has Parkinson's disease. No further episodes since being in the hospital. No clear etiology of his event. Possibly Parkinson's disease related. Unsure. Back to his normal baseline as per family. Care conference discussed today with daughter who is POA and primary caregiver. About long-term care plans. Including back to [facility] maybe to [facility]. They are providing full care for him. Discussed about having hospice on board. If on and what to do when this happens again is it surely well. They feel like they can take care of him at [facility]. Will provide hospice information for them today anticipate discharge. Parkinson's disease. Continue with current medications physical therapy ambulation. And monitoring. Chronic and stable can state. Dementia Parkinson's disease related. Continue with his home dementia medication. Paroxysmal atrial fibrillation patient is not on anticoagulation his heart rate is well controlled. Heart rate irregular. Blood pressure stable at this point. As well as pulse Hypertension. Blood pressure is a little bit high will continue to adjust blood pressure medication for blood pressure control. Disposition plan code status is a no code. Hospice evaluation for patient and family. Back to [facility] when arrangements are made. n.
[2019-12-11] MEDS: DONEPEZIL 5 MG TABLET 10 MG PO (09:04)
[2019-12-11] MEDS: CARBIDOPA LEVODOPA 1 EACH PO (09:04)
--- NOTE | 2019-12-11 10:24 | OT.IPNOTE ---
Pt admitted on 12/09/19 for loss of consciousness and was admitted approximately 48 hours prior for similar episode. At that time, pt's family states had been either giving pt supervision or assisting with all ADl needs and felt OT eval not needed. Therefore since family has been doing all ADL's discharge OT eval orders.
[2019-12-11 12:00] VITALS: BP 125/57; PULSE 61; RESP 16; TEMP 36.6; O2SAT 98
--- NOTE | 2019-12-11 12:04 | DIET.PN ---
Dietary Progress Note Assessment: Mr. Egan is an 84-year-old male with Hx of Parkinson's who presented due to altered LOC. He reports disinterest in eating often and has some difficulty chewing tough meats. He resides at [facility]. HT: 182.88cm WT: 78kg UBW: 87kg (08/12) 85.7 (11/13) BMI: 23.3 Labs: Pro: 6.0 L alb: 3.3 L MNA: 8 Sameer: 18 PO's: Small cookie (12/10) Nutrition Diagnosis: Moderate chronic illness protein calorie malnutrition r/t physiological causes increasing nutrient needs due to chronic illness (parkinson's) aeb energy intake <75% EER > 1mo, weight loss 9% in 1 mo, low BMI for age, pt report decreased appetite/interest in food. Interventions: 1. Discussed nutritional needs with patient. Reviewed menu options including easy chew foods. 2. Pt agreed to ensure enlive BID for nutrition support. Diet Order: General EER: 2000 jessica @ 25 jessica/kg; 100 g @ 1.3g/kg Monitoring/Evaluations: Wt, PO's, Provide haven enlive BID
--- NOTE | 2019-12-11 12:07 | CM.DPC ---
Addendum entered by Cristina Verdugo R.N. 12/11/19 13:28: CM/RN met with patients daughter and discussed D/C plan. CM/Rn spoke with hospice and they are going to go meet the family at [facility] at 8:30am tomorrow morning to discuss hospice intake. Cm/Rn will give patient information on private pay care givers. CM/Rn gave family senior resources guide for [place] to daughter that way she can work on setting up private caregivers to be with patient at night while they wait for [facility]. Faxed Clinicals to hospice [facility] at [phone] for them to review. Patients daughter will bring patient home today at 3:30pm. Once medication list is signed CM/RN will fax it to [facility] so they can update his medication list there. Cristina Verdugo RN Original Note: DCP continued: EMR reviewed: CM/Rn spoke with patients daughter who will be coming in today to discuss D/C plans for patient. CM/Rn called Hospice [facility] and faxed clinicals for them to review in attempts to set up an informational meeting with the patient and family at [facility]. Patients family plans on taking patient back to [facility] and provide 24/7 care while they wait for an opening at [facility] memory care. Patient family would like to get hospice started for patient. CM/RN called [facility] they plan on accepting patient back with family help and just need an updated medication list signed by D/c provider and faxed to them since they manage patients medications. They will also need medications daughter brought to hospital so they can administer them their. CM will let daughter know during meeting . Cristina Verdugo RN.
--- NOTE | 2019-12-11 15:22 | PC.NURSE ---
DISCHARGED TO [facility] PER MD ORDERS AND REVIEWED AT [facility]-D/C PLAN AND PLANS FOR HOSPICE CONSULT AND CAREGIVER POTENTIAL-
== END 2019-12-11 15:24 | DRG 81 ==
LOC: ED 19:18 → ICU 20:06
PROVIDERS: Admitting Provider Family Medicine; Emergency Provider Emergency Medicine; PCP Family Medicine; Referring Provider Emergency Medicine; Visit Provider Family Medicine
DX: R40.20 Unspecified coma (principal); G20 Parkinson's disease; I48.0 Paroxysmal atrial fibrillation; N40.0 Benign prostatic hyperplasia without lower urinary tract symptoms; F02.80 Dementia in other diseases classified elsewhere, unspecified severity, without behavioral disturbance, psychotic disturbance, mood disturbance, and anxiety; I10 Essential (primary) hypertension; K21.9 Gastro-esophageal reflux disease without esophagitis; Z87.891 Personal history of nicotine dependence
CPT/HCPCS: 36415; 36600; 51701; 70450; 71045; 80053; 80305; 81001; 82140; 82550; 82805; 83605; 84145; 84443; 84484; 85025; 85610; 85730; 93005; 97116; 97162; 97530; 99285; J0515; J1650

== ENCOUNTER → 2020-02-21 14:13 | Outpatient (CLI) | payer MEDICARE, BC, SELFPAY ==
[2019-12-09 20:14] VITALS: BMI 23.4
[2020-02-21 14:20] LABS: Bacteria Urine None Seen; RBC Urine None Seen (0-5/HPF); WBC Urine None Seen (0-5/HPF)
[2020-02-21 14:34] LABS: Appearance Urine UA CLEAR; Bilirubin Urine UA NEGATIVE (NEGATIVE); Color Urine UA YELLOW; Glucose Urine UA NEGATIVE (Negative); Ketones Urine UA NEGATIVE (NEGATIVE); Leukocyte Esterase Urine UA NEGATIVE (NEGATIVE); Nitrite Urine UA NEGATIVE (Negative); Occult Blood Urine UA NEGATIVE (Negative); Protein Urine UA NEGATIVE (Negative); Urobilinogen Urine UA 0.2 E.U./dL (0.2)
[2020-02-21 14:45] LABS: Culture Indicated Urine Cult Not Indicated; Squamous Epithelial Cell Urine 0-1 /HPF (0-5/HPF)
== END ==
PROVIDERS: PCP Family Medicine; Referring Provider Family Medicine; Visit Provider Family Medicine
DX: R39.9 Unspecified symptoms and signs involving the genitourinary system (principal)
CPT/HCPCS: 81001

== ENCOUNTER → 2020-02-23 08:05 | Outpatient (CLI) | payer MEDICARE, BC, SELFPAY ==
[2019-12-09 20:14] VITALS: BMI 23.4
[2020-02-23 08:10] LABS: RBC Urine None Seen (0-5/HPF); WBC Urine None Seen (0-5/HPF)
[2020-02-23 08:16] LABS: Appearance Urine UA CLEAR; Bilirubin Urine UA NEGATIVE (NEGATIVE); Color Urine UA YELLOW; Glucose Urine UA NEGATIVE (Negative); Ketones Urine UA NEGATIVE (NEGATIVE); Leukocyte Esterase Urine UA NEGATIVE (NEGATIVE); Nitrite Urine UA NEGATIVE (Negative); Occult Blood Urine UA NEGATIVE (Negative); Protein Urine UA NEGATIVE (Negative); Specific Gravity Urine UA 1.015 (1.000-1.035); Urobilinogen Urine UA 0.2 E.U./dL (0.2)
[2020-02-23 08:28] LABS: Bacteria Urine Occasional (0-1); Culture Indicated Urine Cult Not Indicated; Squamous Epithelial Cell Urine 0-1 /HPF (0-5/HPF)
== END ==
PROVIDERS: PCP Family Medicine; Referring Provider Family Medicine; Visit Provider Family Medicine
DX: R41.82 Altered mental status, unspecified (principal)
CPT/HCPCS: 81001

== ENCOUNTER → 2020-11-22 09:45 | Outpatient (CLI) | payer MEDICARE, BC, SELFPAY ==
[2019-12-09 20:14] VITALS: BMI 23.4
[2020-11-22 10:33] LABS: Add Manual Diff / Slide Review NO; Basophils Absolute Auto 0 /uL (0-100); Basophils Percent Auto 0.5 % (0-2); Eosinophils Absolute Auto 200 /uL (0-450); Eosinophils Percent Auto 2.7 % (2-4); Hematocrit 43.3 % (41-53); Hemoglobin 14.1 g/dL (13.5-17.5); Lymphocytes Absolute Auto 1200 /uL (1100-4500); Lymphocytes Percent Auto 19.7 % (25-40); Mean Corpuscular HGB Conc 32.5 % (30-36); Mean Corpuscular Hemoglobin 30.3 PG (26-34); Mean Corpuscular Volume 93.2 fL (80-100); Monocytes Absolute Auto 500 /uL (0-900); Monocytes Percent Auto 7.9 % (3-14); Neutrophils Absolute Auto 4300 /uL (1500-7000); Neutrophils Percent Auto 69.2 % (50-75); Platelet Count 214 X10^3/uL (150-400); Red Blood Cell Count 4.64 X10^6/uL (4.5-5.9); White Blood Cell Count 6.2 X10^3/uL (4.5-11.0)
[2020-11-22 10:44] LABS: Alanine Aminotransferase 6 IU/L (<50); Albumin 4.1 g/dL (3.5-5.0); Albumin Globulin Ratio 1.4 (1.0-2.8); Alkaline Phosphatase 77 U/L (38-126); Aspartate Aminotransferase 20 IU/L (17-59); BUN Creatinine Ratio 23.5 (6-22); Bilirubin Total 0.6 mg/dL (0.2-1.3); Blood Urea Nitrogen 24 mg/dL (9-20); Carbon Dioxide 33 mmol/L (22-32); Chloride 103 mmol/L (98-107); Estimated Glomerular Filt Rate > 60.0 mL/min (>60); Glucose 103 mg/dL (80-110); HEMOLYSIS < 15 (0-50); Potassium 3.8 mmol/L (3.4-5.1); Sodium 140 mmol/L (137-145); Total Protein 7.1 g/dL (6.3-8.2)
== END ==
PROVIDERS: PCP Family Medicine; Referring Provider Psychiatry & Neurology Neurology; Visit Provider Psychiatry & Neurology Neurology
DX: Z51.81 Encounter for therapeutic drug level monitoring (principal)
CPT/HCPCS: 36415; 80053; 85025

== ENCOUNTER → 2020-12-16 11:57 | Outpatient (ROUT) | payer MEDICARE, BC, SELFPAY ==
[2019-12-09 20:14] VITALS: BMI 23.4
[2020-12-18 12:49] LABS: RBC Urine None Seen (0-5/HPF); WBC Urine None Seen (0-5/HPF)
[2020-12-18 12:57] LABS: Appearance Urine UA CLOUDY; Bilirubin Urine UA NEGATIVE (NEGATIVE); Color Urine UA YELLOW; Glucose Urine UA NEGATIVE (Negative); Ketones Urine UA TRACE (NEGATIVE); Leukocyte Esterase Urine UA NEGATIVE (NEGATIVE); Nitrite Urine UA NEGATIVE (Negative); Occult Blood Urine UA NEGATIVE (Negative); Protein Urine UA NEGATIVE (Negative); Specific Gravity Urine UA 1.025 (1.000-1.035); Urobilinogen Urine UA 0.2 E.U./dL (0.2)
[2020-12-18 13:46] LABS: Amorphous Sediment Urine 4+; Bacteria Urine Many (>30); Calcium Oxalate Crystals Urine Moderate
== END ==
PROVIDERS: PCP Family Medicine; Visit Provider Nurse Practitioner Family
DX: N39.0 Urinary tract infection, site not specified (principal)
CPT/HCPCS: 81001; 87086

== ENCOUNTER → 2021-03-17 13:04 | Outpatient (ROUT) | payer MEDICARE, BC, SELFPAY ==
[2019-12-09 20:14] VITALS: BMI 23.4
[2021-03-17 13:06] LABS: Bacteria Urine None Seen; RBC Urine None Seen (0-5/HPF)
[2021-03-17 13:10] LABS: Appearance Urine UA CLOUDY; Bilirubin Urine UA NEGATIVE (NEGATIVE); Color Urine UA YELLOW; Glucose Urine UA NEGATIVE (Negative); Ketones Urine UA TRACE (NEGATIVE); Leukocyte Esterase Urine UA TRACE (NEGATIVE); Nitrite Urine UA NEGATIVE (Negative); Occult Blood Urine UA NEGATIVE (Negative); Protein Urine UA NEGATIVE (Negative); Specific Gravity Urine UA 1.025 (1.000-1.035); Urobilinogen Urine UA 0.2 E.U./dL (0.2); pH Urine UA 5.5 (4.5-8.0)
[2021-03-17 13:52] LABS: Amorphous Sediment Urine 4+; Culture Indicated Urine Specimen Cultured; WBC Urine 1-5/HPF (0-5/HPF)
== END ==
PROVIDERS: PCP Family Medicine; Visit Provider Internal Medicine
DX: R41.0 Disorientation, unspecified (principal); R82.998 Other abnormal findings in urine; R53.1 Weakness
CPT/HCPCS: 81001; 87086

== ENCOUNTER → 2021-05-30 23:02 | Outpatient (ROUT) | payer MEDICARE, BC, SELFPAY ==
[2019-12-09 20:14] VITALS: BMI 23.4
[2021-05-30 23:38] LABS: Appearance Urine UA CLEAR; Bilirubin Urine UA NEGATIVE (NEGATIVE); Color Urine UA YELLOW; Glucose Urine UA NEGATIVE (Negative); Ketones Urine UA TRACE (NEGATIVE); Leukocyte Esterase Urine UA NEGATIVE (NEGATIVE); Nitrite Urine UA NEGATIVE (Negative); Occult Blood Urine UA NEGATIVE (Negative); Protein Urine UA NEGATIVE (Negative); Specific Gravity Urine UA 1.025 (1.000-1.035); Urobilinogen Urine UA 0.2 E.U./dL (0.2)
[2021-05-30 23:40] LABS: Bacteria Urine Few (2-10); Culture Indicated Urine Cult Not Indicated; RBC Urine 0-1/HPF (0-5/HPF); Squamous Epithelial Cell Urine 0-1 /HPF (0-5/HPF); WBC Urine 0-1/HPF (0-5/HPF)
== END ==
PROVIDERS: PCP Family Medicine; Visit Provider Nurse Practitioner Family
DX: R41.0 Disorientation, unspecified (principal)
CPT/HCPCS: 81001

== ENCOUNTER 2021-07-31 09:25 | Emergency (ER) | payer MEDICARE, BC, SELFPAY ==
[2019-12-09 20:14] VITALS: BMI 23.4
[2021-07-31 09:33] VITALS: BP 172/69; PULSE 47; PULSE 49; RESP 10; RESP 16; TEMP 36.6; O2SAT 98; BMI 23.8
--- NOTE | 2021-07-31 09:38 | ED.GENADULT ---
HPI - General Adult General Chief complaint: Altered Mental Status Stated complaint: Period of unresponsiveness Time Seen by Provider: 07/31/21 09:36 Source: EMS Mode of arrival: EMS History of Present Illness HPI narrative: 85-year-old gentleman with history of advanced Parkinson's related dementia currently at [facility] who is currently DNR DNI presents after a 10 minute episode where he was simply staring off into space and minimally responsive to staff. He was sitting at the breakfast table at the time and not having any other signs of distress maintaining his airway appropriately. He was incontinent of urine which is not particularly unusual for him. The staff at the [facility] facility do not report any recent fevers, cough, complaints of abdominal pain, skin changes or medication changes. Related Data Home Medications Medication Instructions Recorded Confirmed carbidopa 25 mg-levodopa 100 mg 1 tab PO BEDTIME 11/21/19 03/26/20 tablet loperamide 2 mg capsule See Rx Instructions .ROUTE 11/21/19 03/26/20 .COMPLEX MDD 8 carbidopa ER 48.75 mg-levodopa 195 1 cap PO TID 12/07/19 03/26/20 mg capsule,extended release (Rytary) pimavanserin 10 mg tablet 10 mg PO DAILY 07/15/20 (Nuplazid) Previous Rx's Medication Instructions Recorded polyethylene glycol 3350 17 17 gram PO DAILY #510 gram 05/12/19 gram/dose oral powder quetiapine 25 mg tablet (Seroquel) 12.5 mg PO BEDTIME #30 tab 01/03/20 fluticasone furoate 27.5 1 spray INTRANASAL DAILY #9.1 ml 02/23/20 mcg/actuation nasal spray,suspension dabigatran etexilate 150 mg capsule 150 mg PO BID #180 cap 04/16/20 esomeprazole magnesium 40 mg 40 mg PO DAILY #30 cap 04/16/20 capsule,delayed release (Nexium) tamsulosin 0.4 mg capsule 0.8 mg PO QPM #60 cap 04/16/20 donepezil 10 mg tablet (Aricept) 10 mg PO DAILY #30 tab 08/07/20 rasagiline 1 mg tablet See Rx Instructions .ROUTE 07/24/21 .COMPLEX #30 tab Allergies Allergy/AdvReac Type Severity Reaction Status Date / Time nitrofurantoin AdvReac Verified 07/31/21 09:37 [From Macrobid] Review of Systems Review of Systems Narrative: Aside from information provided from Memory Care staff remainder of review of systems is unobtainable due to his advanced dementia Patient History Medical History Atrial fibrillation (2009) 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 Cataract (1999) Chest wall contusion Chronic back pain (1999) Colon polyps (2001) Dementia Diverticular disease (2006) Esophageal ring (1999) Esophageal web (1999) Fecal incontinence (2014) GERD (gastroesophageal reflux disease) (1999) Gout (1969) Hayfever (1999) Hearing loss (1999) Herpes (1982) Hypertension (2007) Melanoma (2001) Parkinson's disease (2010) Polymyalgia rheumatica (2010) Recurrent sinusitis (1999) Skin cancer (2006) Sleep apnea (2010) Tinnitus (2015) Urinary incontinence (2014) Surgical History Anesthesia History of sinus surgery (1989) Status post hernia repair (1999) Family History Grandfather Heart disease Grandmother Heart disease Father Alcoholism Mother Alzheimer's disease Grandfather MVA (motor vehicle accident) Grandmother No problems noted. Social History household members: other Smoking Status: Former smoker alcohol intake: current Smoking Status: Former smoker alcohol intake frequency: 0-2 drinks per day Substance Use Type: does not use Exam Narrative Exam Narrative: General: Healthy appearing, in no acute distress. Well-nourished well-developed HEENT: Moist mucous membranes, normal sclera with reactive pupils, Neck: No JVD, supple Respiratory: Lungs are clear to auscultation, no wheezing no rales no rhonchi. Full and symmetrical air movement Cardiac: Bradycardic but regular without murmurs Abdomen: Soft, nontender, good bowel tones, no flank pain Skin: Warm and dry, no rashes Neurologic: Grossly neurologically intact with no obvious asymmetries or abnormalities Extremities: No trauma, well perfused, compression socks in place with mild bilateral lower extremity edema. Psych: Cooperative, significant memory deficits Initial Vital Signs Initial Vital Signs: Vital Signs Temperature 98 F 07/31/21 09:33 Pulse Rate 49 L 07/31/21 09:33 Respiratory Rate 16 07/31/21 09:33 Blood Pressure 172/69 H 07/31/21 09:33 Pulse Oximetry 98 07/31/21 09:33 Course Vital Signs Vital signs: Vital Signs - 8 hr 07/31/21 09:33 Temperature 98 F Pulse Rate 49 L Respiratory Rate 16 Blood Pressure 172/69 H Pulse Oximetry 98 Medical Decision Making Lab Data Labs: Point of Care Testing Glucose POC 90 Point of care testing: Point of Care Testing Glucose POC 90 MDM Narrative Medical decision making narrative: 85-year-old gentleman presents with his daughter who has power of commercial attorney. He is seemingly completely well at this point and has no specific complaints. With shared decision making, we opted not to proceed with any additional workup for this 10 minute episode of slightly altered mental status. Nursing staff will help get him in to dry pants and his daughter will take him back to his memory care facility. Discharge Plan Departure Patient Disposition: Home Clinical Impression: Acute on chronic alteration in mental status Instructions: DI for Altered Mental Status Activity Restrictions/Additional Instructions: Thank you for coming in today On your physical exam, I am not finding any evidence of acute medical illness or other findings that would warrant additional workup. I am glad that you are feeling better and you are safe to return back to her memory care facility Prescriptions: No Action polyethylene glycol 3350 17 gram/dose powder 17 gram PO DAILY Qty: 510 RF: 12 quetiapine [Seroquel] 25 mg tablet 12.5 mg PO BEDTIME Qty: 30 RF: 3 fluticasone furoate 27.5 mcg/actuation spray,suspension 1 spray INTRANASAL DAILY Qty: 9.1 RF: 3 dabigatran etexilate 150 mg capsule 150 mg PO BID Qty: 180 RF: 1 tamsulosin 0.4 mg capsule 0.8 mg PO QPM Qty: 60 RF: 5 esomeprazole magnesium [Nexium] 40 mg capsule,delayed release(DR/EC) 40 mg PO DAILY Qty: 30 RF: 5 Nuplazid 10 mg tablet 10 mg PO DAILY RF: 0 donepezil [Aricept] 10 mg tablet 10 mg PO DAILY Qty: 30 RF: 6 rasagiline 1 mg tablet See Rx Instructions .ROUTE .COMPLEX Qty: 30 RF: 0 carbidopa-levodopa 25-100 mg tablet 1 tab PO BEDTIME RF: 0 loperamide 2 mg capsule See Rx Instructions .ROUTE .COMPLEX MDD 8 RF: 0 Rytary 48.75-195 mg Capsule, Extended Release 1 cap PO TID RF: 0 Referrals: Julia Keith MD [Primary Care Provider] -
--- NOTE | 2021-07-31 09:53 | PC.NURSE ---
patient eating breakfast, talking and became unresponsive for approx 10min. Patient at baseline by the time EMS arrived. Patient presents to ER with no complaints other than feeling tired. Patient presents incontinent but has incontinence at baseline.
[2021-07-31 10:00] VITALS: PULSE 49; RESP 18; O2SAT 98
[2021-07-31 10:01] VITALS: BP 115/54; PULSE 49; RESP 12; O2SAT 99
[2021-07-31 10:30] VITALS: PULSE 47; RESP 15; O2SAT 99
[2021-07-31 11:00] VITALS: BP 135/76; PULSE 51; RESP 19; O2SAT 100
== END 2021-07-31 11:28 | disposition home or self-care (01) ==
PROVIDERS: Emergency Provider Emergency Medicine; PCP Family Medicine
DX: R41.82 Altered mental status, unspecified (principal); R07.9 Chest pain, unspecified
CPT/HCPCS: 36415; 93005; 99283

== ENCOUNTER 2021-08-13 12:40 | Emergency (ER) | payer MEDICARE, BC, SELFPAY ==
[2019-12-09 20:14] VITALS: BMI 23.4
[2021-08-13] VITALS (13 sets, daily range): BP systolic 115–165; BP diastolic 56–101; PULSE 47–65; RESP 14–68; TEMP 36.9; O2SAT 97–99; BMI 24.1
--- NOTE | 2021-08-13 12:46 | DI.RAD.S_ITS ---
PROCEDURE: XR CHEST 1V INDICATIONS: chest pain TECHNIQUE: One view of the chest was acquired. COMPARISON: [facility], CR, XR CHEST 1V, 12/09/2019, 17:25. [facility], CR, XR CHEST 1V, 07/17/2018, 20:46. FINDINGS: Surgical changes and devices: None. Lungs and pleura: Lungs are clear. No pleural effusions or pneumothorax. Mediastinum: Mediastinal contours appear normal. Heart size is normal. Bones and chest wall: No suspicious bony lesions. Overlying soft tissues appear unremarkable. IMPRESSION: No acute cardiopulmonary abnormality. Dictated by: Raf Cruz M.D. on 08/13/2021 at 13:34 Approved by: Raf Cruz M.D. on 08/13/2021 at 13:35
[2021-08-13 13:39] LABS: Add Manual Diff / Slide Review NO; Basophils Absolute Auto 0 /uL (0-100); Basophils Percent Auto 0.6 % (0-2); Eosinophils Absolute Auto 0 /uL (0-450); Hematocrit 41.1 % (41-53); Hemoglobin 13.6 g/dL (13.5-17.5); Lymphocytes Absolute Auto 1000 /uL (1100-4500); Lymphocytes Percent Auto 22.7 % (25-40); Mean Corpuscular HGB Conc 33.1 % (30-36); Mean Corpuscular Hemoglobin 30.6 PG (26-34); Mean Corpuscular Volume 92.5 fL (80-100); Monocytes Absolute Auto 700 /uL (0-900); Monocytes Percent Auto 15.5 % (3-14); Neutrophils Absolute Auto 2600 /uL (1500-7000); Neutrophils Percent Auto 60.2 % (50-75); Platelet Count 267 X10^3/uL (150-400); Red Blood Cell Count 4.45 X10^6/uL (4.5-5.9); Red Cell Distribution Width 13.8 % (11.6-14.8); White Blood Cell Count 4.3 X10^3/uL (4.5-11.0)
[2021-08-13 13:45] LABS: Alanine Aminotransferase 6 IU/L (<50); Albumin 3.9 g/dL (3.5-5.0); Albumin Globulin Ratio 1.3 (1.0-2.8); Alkaline Phosphatase 84 U/L (38-126); Aspartate Aminotransferase 23 IU/L (17-59); BUN Creatinine Ratio 15.8 (6-22); Bilirubin Total 0.3 mg/dL (0.2-1.3); Blood Urea Nitrogen 19 mg/dL (9-20); Calcium 9.3 mg/dL (8.4-10.2); Carbon Dioxide 31 mmol/L (22-32); Chloride 101 mmol/L (98-107); Creatine Kinase < 20 U/L (55-170); Estimated Glomerular Filt Rate 57.5 mL/min (>60); Globulin 2.9 g/dL (1.7-4.1); Glucose 92 mg/dL (80-110); HEMOLYSIS < 15 (0-50); Lipase 38 U/L (23-300); Potassium 4.2 mmol/L (3.4-5.1); Sodium 137 mmol/L (137-145); Total Protein 6.8 g/dL (6.3-8.2)
[2021-08-13 13:56] LABS: Troponin I < 0.012 ng/mL (0.01-0.034)
--- NOTE | 2021-08-13 14:33 | ED_ITS ---
HPI - Chest Pain General Chief Complaint: Chest Pain Stated Complaint: chest pain, discomfort, SOB Time Seen by Provider: 08/13/21 13:53 Source: family Mode of arrival: Wheelchair Limitations: no limitations History of Present Illness HPI narrative: 85-year-old male. History of Parkinson's disease is here for evaluation of chest discomfort and shortness of breath. He stated that the event occurred earlier in the day. Was left-sided. It was sharp. Unsure as to how long it lasted but was a very short period of time. Did not radiate anywhere. Was somewhat short of breath during that time but that seems to have resolved. Unsure as to whether not it was worse when he touched it. He is currently asymptomatic. He has never had anything like this in the past. Is anticoagulated. Patient's daughter is in the room as well. She states that he also has had an increase in his hallucinations recently. Also has had some anger issues recently. She was also concerned about a urinary tract infection because that has triggered these types of issues in the past. Related Data Home Medications Medication Instructions Recorded Confirmed carbidopa 25 mg-levodopa 100 mg 1 tab PO BEDTIME 11/21/19 03/26/20 tablet loperamide 2 mg capsule See Rx Instructions .ROUTE 11/21/19 03/26/20 .COMPLEX MDD 8 carbidopa ER 48.75 mg-levodopa 195 1 cap PO TID 12/07/19 03/26/20 mg capsule,extended release (Rytary) pimavanserin 10 mg tablet 10 mg PO DAILY 07/15/20 (Nuplazid) Previous Rx's Medication Instructions Recorded polyethylene glycol 3350 17 17 gram PO DAILY #510 gram 05/12/19 gram/dose oral powder quetiapine 25 mg tablet (Seroquel) 12.5 mg PO BEDTIME #30 tab 01/03/20 fluticasone furoate 27.5 1 spray INTRANASAL DAILY #9.1 ml 02/23/20 mcg/actuation nasal spray,suspension dabigatran etexilate 150 mg capsule 150 mg PO BID #180 cap 04/16/20 esomeprazole magnesium 40 mg 40 mg PO DAILY #30 cap 04/16/20 capsule,delayed release (Nexium) tamsulosin 0.4 mg capsule 0.8 mg PO QPM #60 cap 04/16/20 donepezil 10 mg tablet (Aricept) 10 mg PO DAILY #30 tab 08/07/20 rasagiline 1 mg tablet See Rx Instructions .ROUTE 07/24/21 .COMPLEX #30 tab Allergies Allergy/AdvReac Type Severity Reaction Status Date / Time nitrofurantoin AdvReac Verified 07/31/21 09:37 [From Macrobid] Review of Systems ENT Ears, Nose, Mouth, and Throat: Denies sore throat Cardiovascular Cardiovascular: Reports as per HPI and Reports system reviewed and no additional complaints, except as documented Respiratory Respiratory: Reports as per HPI and Reports system reviewed and no additional complaints, except as documented Gastrointestinal Gastrointestinal: Reports system reviewed and no additional complaints, except as documented Integumentary/Breasts Skin/Breast: Reports system reviewed and no additional complaints, except as documented Neurologic Neurologic: Reports as per HPI Hematologic/Lymphatic On Anticoagulants: Yes Patient History Medical History Atrial fibrillation (2009) 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 Cataract (1999) Chest wall contusion Chronic back pain (1999) Colon polyps (2001) Dementia Diverticular disease (2006) Esophageal ring (1999) Esophageal web (1999) Fecal incontinence (2014) GERD (gastroesophageal reflux disease) (1999) Gout (1969) Hayfever (1999) Hearing loss (1999) Herpes (1982) Hypertension (2007) Melanoma (2001) Parkinson's disease (2010) Polymyalgia rheumatica (2010) Recurrent sinusitis (1999) Skin cancer (2006) Sleep apnea (2010) Tinnitus (2015) Urinary incontinence (2014) Surgical History Anesthesia History of sinus surgery (1989) Status post hernia repair (1999) Family History Grandfather Heart disease Grandmother Heart disease Father Alcoholism Mother Alzheimer's disease Grandfather MVA (motor vehicle accident) Grandmother No problems noted. Social History household members: other Smoking Status: Former smoker alcohol intake: current Smoking Status: Former smoker alcohol intake frequency: holidays/special occasions only Substance Use Type: does not use Exam Initial Vital Signs Initial Vital Signs: Vital Signs Temperature 98.4 F 08/13/21 12:46 Pulse Rate 59 L 08/13/21 12:46 Respiratory Rate 14 08/13/21 12:46 Blood Pressure 135/101 H 08/13/21 12:46 Pulse Oximetry 97 08/13/21 12:46 Const General: cooperative, comfortable and well developed Limitations: mental status not altered HENMT Head: normal to inspection and normocephalic Chest Chest: normal inspection of the chest Resp Effort & Inspection: normal respiratory effort Auscultation: clear to auscultation bilaterally Cardio Rate: regular rate Rhythm: abnormal rhythm GI Inspection: non-distended Palpation: soft and No tender Skin General: no rashes or lesions noted Neuro General: patient alert, patient awake and patient oriented x3 Other: Shaking in his upper extremities consistent with his history of Parkinson's Extrem General: capillary refill normal Psych Appearance: grossly normal and well kempt Course Orders Ordered: ED Orders 08/13/21 12:46 XR chest 1V Stat EKG-12 Lead Stat 08/13/21 13:23 Complete Blood Count AUTO DIFF Stat Comprehensive Metabolic Panel Stat Lipase Stat Troponin & CK Cardiac Panel Stat 08/13/21 15:12 Troponin I Stat Vital Signs Vital signs: Vital Signs - 8 hr 08/13/21 12:46 08/13/21 13:17 08/13/21 13:30 Temperature 98.4 F Pulse Rate 59 L 56 L 52 L Respiratory Rate 14 23 21 Blood Pressure 135/101 H 151/70 H Pulse Oximetry 97 99 98 08/13/21 13:53 08/13/21 14:00 08/13/21 14:01 Temperature Pulse Rate 52 L 47 L 48 L Respiratory Rate 21 21 20 Blood Pressure 165/66 H 141/63 H Pulse Oximetry 98 98 98 08/13/21 14:30 08/13/21 14:31 08/13/21 15:00 Temperature Pulse Rate 54 L 47 L 55 L Respiratory Rate 28 H 25 H 68 H Blood Pressure 153/65 H Pulse Oximetry 98 98 98 08/13/21 15:01 08/13/21 15:30 Temperature Pulse Rate 50 L 65 Respiratory Rate 32 H 66 H Blood Pressure 115/57 L 117/84 Pulse Oximetry 98 97 MDM - Chest Pain Lab Data Attestation: I reviewed the patient's lab results. Result diagrams: 08/13/21 13:23 08/13/21 13:23 Labs: Lab Results 08/13/21 08/13/21 08/13/21 Range/Units 13:23 13:23 15:12 WBC 4.3 L (4.5-11.0) X10^3/uL RBC 4.45 L (4.5-5.9) X10^6/uL Hgb 13.6 (13.5-17.5) g/dL Hct 41.1 (41-53) % MCV 92.5 (80-100) fL MCH 30.6 (26-34) PG MCHC 33.1 (30-36) % RDW 13.8 (11.6-14.8) % Plt Count 267 (150-400) X10^3/uL Neut % (Auto) 60.2 (50-75) % Lymph % (Auto) 22.7 L (25-40) % Porter % (Auto) 15.5 H (3-14) % Eos % (Auto) 1.0 L (2-4) % Baso % (Auto) 0.6 (0-2) % Neut # (Auto) 2600 (9808-9381) /uL Lymph # (Auto) 1000 L (9536-9734) /uL Porter # (Auto) 700 (0-900) /uL Eos # (Auto) 0 (0-450) /uL Baso # (Auto) 0 (0-100) /uL Sodium 137 (137-145) mmol/L Potassium 4.2 (3.4-5.1) mmol/L Chloride 101 (98-107) mmol/L Carbon Dioxide 31 (22-32) mmol/L BUN 19 (9-20) mg/dL Creatinine 1.20 (0.66-1.25) mg/dL Estimated GFR 57.5 L (>60) mL/min BUN/Creatinine Ratio 15.8 (6-22) Glucose 92 (80-110) mg/dL Calcium 9.3 (8.4-10.2) mg/dL Total Bilirubin 0.3 (0.2-1.3) mg/dL AST 23 (17-59) IU/L ALT 6 (<50) IU/L Alkaline Phosphatase 84 (38-126) U/L Total Creatine Kinase < 20 L (55-170) U/L CK-MB (CK-2) TNP CK-MB (CK-2) Rel Index TNP Troponin I < 0.012 < 0.012 (0.01-0.034) ng/mL Total Protein 6.8 (6.3-8.2) g/dL Albumin 3.9 (3.5-5.0) g/dL Globulin 2.9 (1.7-4.1) g/dL Albumin/Globulin Ratio 1.3 (1.0-2.8) Lipase 38 (23-300) U/L Urine Dip Bedside Urine Glucose Negative Bedside Urine Bilirubin - Negative Bedside Urine Ketone - Negative Urine Specific [place] 1.030 Bedside Urine Occult Blood - Negative Bedside Urine pH 6.0 Bedside Urine Protein - Negative Bedside Urine Urobilinogen - Negative Bedside Urine Nitrite - Negative Bedside Urine Leukocytes - Negative Esterase Imaging Data Chest x-ray: Radiologist's Impression: [address] [id number] ReportSigned Patient: Yan Egan GMR#: [id number]: 6Acct:[id number]/Sex: 85 / MDate of Service: 08/13/21Loc: EDAccession Number: [id number] Procedure: XR chest 1V Ordering Provider: Sahil Armenta D.O. PROCEDURE: XR CHEST 1V INDICATIONS: chest pain TECHNIQUE: One view of the chest was acquired. COMPARISON: [facility], , XR CHEST 1V, 12/09/2019, 17:25. [facility], , XR CHEST 1V, 07/17/2018, 20:46. FINDINGS: Surgical changes and devices: None. Lungs and pleura: Lungs are clear. No pleural effusions or pneumothorax. Mediastinum: Mediastinal contours appear normal. Heart size is normal. Bones and chest wall: No suspicious bony lesions. Overlying soft tissues appear unremarkable. IMPRESSION: No acute cardiopulmonary abnormality. Dictated by: Raf Cruz M.D. on 08/13/2021 at 13:34 Approved by: Raf Cruz M.D. on 08/13/2021 at 13:35 ECG Data Attestation: I personally reviewed and interpreted this ECG as follows: Interpretation: Sinus bradycardia Frequent PAC Normal QRS Normal QTC No ST T wave changes MDM Narrative Medical decision making narrative: Patient is asymptomatic. Sinus bradycardia on his EKG. No ST T wave changes on his EKG. Chest x-ray is unremarkable. Troponins negative x2. I have a lower suspicion of ACS based on his presentation today. Could have potentially had a episode of atrial fibrillation however he is not in AFib now and is rate controlled. He is at his baseline loren rologic status per his daughter who is at bedside. Urinalysis not consistent with the urinary tract infection. Hold on further workup for now. Patient and daughter given return precautions and follow-up instructions. They expressed understanding and agreement. Discharge Plan Departure Patient Disposition: Home Clinical Impression: Atypical chest pain Instructions: DI for Atypical Chest Pain Activity Restrictions/Additional Instructions: Continue to take all of your medications as directed. Contact your primary doctor for a follow-up. Return to the emergency department for any new or worsening symptoms Prescriptions: No Action polyethylene glycol 3350 17 gram/dose powder 17 gram PO DAILY Qty: 510 RF: 12 quetiapine [Seroquel] 25 mg tablet 12.5 mg PO BEDTIME Qty: 30 RF: 3 fluticasone furoate 27.5 mcg/actuation spray,suspension 1 spray INTRANASAL DAILY Qty: 9.1 RF: 3 dabigatran etexilate 150 mg capsule 150 mg PO BID Qty: 180 RF: 1 tamsulosin 0.4 mg capsule 0.8 mg PO QPM Qty: 60 RF: 5 esomeprazole magnesium [Nexium] 40 mg capsule,delayed release(DR/EC) 40 mg PO DAILY Qty: 30 RF: 5 Nuplazid 10 mg tablet 10 mg PO DAILY RF: 0 donepezil [Aricept] 10 mg tablet 10 mg PO DAILY Qty: 30 RF: 6 rasagiline 1 mg tablet See Rx Instructions .ROUTE .COMPLEX Qty: 30 RF: 0 carbidopa-levodopa 25-100 mg tablet 1 tab PO BEDTIME RF: 0 loperamide 2 mg capsule See Rx Instructions .ROUTE .COMPLEX MDD 8 RF: 0 Rytary 48.75-195 mg Capsule, Extended Release 1 cap PO TID RF: 0 Referrals: Julia Keith MD [Primary Care Provider] -
[2021-08-13 15:54] LABS: Troponin I < 0.012 ng/mL (0.01-0.034)
== END 2021-08-13 16:49 | disposition home or self-care (01) ==
PROVIDERS: Emergency Provider Emergency Medicine; PCP Family Medicine
DX: R07.89 Other chest pain (principal); R06.00 Dyspnea, unspecified
CPT/HCPCS: 36415; 71045; 80053; 81003; 82550; 83690; 84484; 85025; 93005; 93010; 99283; 99284

== ENCOUNTER 2021-12-05 10:55 | Emergency (ER) | payer MEDICARE, BC, SELFPAY ==
[2019-12-09 20:14] VITALS: BMI 23.4
[2021-12-05] VITALS (14 sets, daily range): BP systolic 155–174; BP diastolic 67–88; PULSE 43–66; RESP 15–25; TEMP 36.4–36.6; O2SAT 88–100; BMI 22.4
--- NOTE | 2021-12-05 11:09 | DI.RAD.S_ITS ---
PROCEDURE: XR CHEST 1V INDICATIONS: chest pain TECHNIQUE: One view of the chest was acquired. COMPARISON: [facility], CR, XR CHEST 1V, 08/13/2021, 13:11. FINDINGS: Surgical changes and devices: None. Lungs and pleura: Lungs are clear. No pleural effusions or pneumothorax. Mediastinum: Mediastinal contours appear normal. Heart size is normal. Bones and chest wall: No suspicious bony lesions. Overlying soft tissues appear unremarkable. IMPRESSION: No acute cardiopulmonary disease process. Dictated by: Ying Cochran MD, PhD on 12/05/2021 at 12:24 Approved by: Ying Cochran MD, PhD on 12/05/2021 at 12:25
[2021-12-05 11:15] LABS: Add Manual Diff / Slide Review NO; Basophils Absolute Auto 100 /uL (0-100); Basophils Percent Auto 0.7 % (0-2); Eosinophils Absolute Auto 100 /uL (0-450); Eosinophils Percent Auto 1.7 % (2-4); Hematocrit 42.3 % (41-53); Hemoglobin 14.1 g/dL (13.5-17.5); Lymphocytes Absolute Auto 1300 /uL (1100-4500); Lymphocytes Percent Auto 14.9 % (25-40); Mean Corpuscular HGB Conc 33.3 % (30-36); Mean Corpuscular Hemoglobin 30.8 PG (26-34); Mean Corpuscular Volume 92.4 fL (80-100); Monocytes Absolute Auto 700 /uL (0-900); Monocytes Percent Auto 7.8 % (3-14); Neutrophils Absolute Auto 6400 /uL (1500-7000); Neutrophils Percent Auto 74.9 % (50-75); Platelet Count 265 X10^3/uL (150-400); Red Blood Cell Count 4.57 X10^6/uL (4.5-5.9); Red Cell Distribution Width 14.1 % (11.6-14.8); White Blood Cell Count 8.5 X10^3/uL (4.5-11.0)
[2021-12-05 11:22] LABS: Alanine Aminotransferase 6 IU/L (<50); Albumin 3.9 g/dL (3.5-5.0); Albumin Globulin Ratio 1.4 (1.0-2.8); Alkaline Phosphatase 75 U/L (38-126); Aspartate Aminotransferase 19 IU/L (17-59); BUN Creatinine Ratio 17.8 (6-22); Bilirubin Total 0.5 mg/dL (0.2-1.3); Blood Urea Nitrogen 19 mg/dL (9-20); Carbon Dioxide 33 mmol/L (22-32); Chloride 105 mmol/L (98-107); Creatine Kinase < 20 U/L (55-170); Estimated Glomerular Filt Rate > 60.0 mL/min (>60); Globulin 2.7 g/dL (1.7-4.1); Glucose 108 mg/dL (80-110); HEMOLYSIS < 15 (0-50); Lipase 26 U/L (23-300); Magnesium 2.2 mg/dL (1.6-2.3); Potassium 4.1 mmol/L (3.4-5.1); Sodium 142 mmol/L (137-145); Total Protein 6.6 g/dL (6.3-8.2)
[2021-12-05 11:33] LABS: Troponin I < 0.012 ng/mL (0.01-0.034)
--- NOTE | 2021-12-05 11:51 | ED_ITS ---
HPI - Chest Pain General Chief Complaint: Chest Pain Stated Complaint: Chest pain Time Seen by Provider: 12/05/21 11:20 Source: patient and EMS Mode of arrival: EMS Limitations: no limitations History of Present Illness HPI narrative: Patient is a 86-year-old male who has a history of Parkinson's, atrial fibrillation on Pradaxa presenting with right jaw pain, resides at [facility]. He is poor historian, daughter is at bedside. He is no longer having any pain. He does have chronic lower extremity edema. He denies any nausea or vomiting no shortness of breath. He has no chest pain or palpitations . He has had something similar changes is previously. Discussion with daughter who states that even if he was having something with his heart they would not want anything aggressive. He actually did not follow-up from his previous visit he has not had any stress test or echocardiogram. Related Data Home Medications Medication Instructions Recorded Confirmed carbidopa 25 mg-levodopa 100 mg 1 tab PO BEDTIME 11/21/19 03/26/20 tablet loperamide 2 mg capsule See Rx Instructions .ROUTE 11/21/19 03/26/20 .COMPLEX MDD 8 carbidopa ER 48.75 mg-levodopa 195 1 cap PO TID 12/07/19 03/26/20 mg capsule,extended release (Rytary) pimavanserin 10 mg tablet 10 mg PO DAILY 07/15/20 (Nuplazid) Previous Rx's Medication Instructions Recorded polyethylene glycol 3350 17 17 gram PO DAILY #510 gram 05/12/19 gram/dose oral powder quetiapine 25 mg tablet (Seroquel) 12.5 mg PO BEDTIME #30 tab 01/03/20 fluticasone furoate 27.5 1 spray INTRANASAL DAILY #9.1 ml 02/23/20 mcg/actuation nasal spray,suspension dabigatran etexilate 150 mg capsule 150 mg PO BID #180 cap 04/16/20 esomeprazole magnesium 40 mg 40 mg PO DAILY #30 cap 04/16/20 capsule,delayed release (Nexium) tamsulosin 0.4 mg capsule 0.8 mg PO QPM #60 cap 04/16/20 donepezil 10 mg tablet (Aricept) 10 mg PO DAILY #30 tab 08/07/20 rasagiline 1 mg tablet See Rx Instructions .ROUTE 08/25/21 .COMPLEX #30 tab Allergies Allergy/AdvReac Type Severity Reaction Status Date / Time nitrofurantoin AdvReac Verified 07/31/21 09:37 [From Macrobid] Review of Systems Review of Systems Narrative: limited Constitutional Constitutional: Denies fatigue and Denies fever(s) ENT Ears, Nose, Mouth, and Throat: Denies sore throat Cardiovascular Cardiovascular: Denies chest pain, Denies rapid heart rate, Denies irregular heart rhythm and Denies dyspnea on exertion Respiratory Respiratory: Denies dyspnea on exertion Gastrointestinal Gastrointestinal: Denies nausea and Denies vomiting Genitourinary Genitourinary: Denies urinary frequency Integumentary/Breasts Skin/Breast: Denies rash Neurologic Neurologic: Reports memory loss Psychiatric Psychiatric: Reports memory loss Endocrine Endocrine: Denies fatigue Patient History Medical History Atrial fibrillation (2009) 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 Cataract (1999) Chest wall contusion Chronic back pain (1999) Colon polyps (2001) Dementia Diverticular disease (2006) Esophageal ring (1999) Esophageal web (1999) Fecal incontinence (2014) GERD (gastroesophageal reflux disease) (1999) Gout (1969) Hayfever (1999) Hearing loss (1999) Herpes (1982) Hypertension (2007) Melanoma (2001) Parkinson's disease (2010) Polymyalgia rheumatica (2010) Recurrent sinusitis (1999) Skin cancer (2006) Sleep apnea (2010) Tinnitus (2015) Urinary incontinence (2014) Surgical History Anesthesia History of sinus surgery (1989) Status post hernia repair (1999) Family History Grandfather Heart disease Grandmother Heart disease Father Alcoholism Mother Alzheimer's disease Grandfather MVA (motor vehicle accident) Grandmother No problems noted. Social History household members: other Smoking Status: Former smoker alcohol intake: current Smoking Status: Former smoker alcohol intake frequency: holidays/special occasions only Substance Use Type: does not use Exam Initial Vital Signs Initial Vital Signs: Vital Signs Temperature 97.5 F L 12/05/21 10:55 Pulse Rate 57 L 12/05/21 10:55 Respiratory Rate 18 12/05/21 10:55 Blood Pressure 174/67 H 12/05/21 10:55 Pulse Oximetry 99 12/05/21 10:55 GENERAL: Alert 86-year-old male awake alert pleasant in no acute distress. HEENT: Head atraumatic,EOMI, pupils reactive, face symmetric, moist mucous membranes CARDIOVASCULAR: Regular rate and rhythm without murmurs, rubs or gallops. RESPIRATORY: Breath sounds equal bilaterally, no wheezes rales or rhonchi. ABDOMEN: Soft, nontender. Normoactive bowel sounds all 4 quadrants. No guardi ng or rebound. EXTREMITIES: Normal range of motion, no clubbing.+3 pitting edema bilaterally, compression socks on NEUROLOGICAL: Alert and oriented to person and place, follows commands no gross deficits SKIN: Warm, dry, no laceration, no petechiae, no rashes or lesions. Course Orders Ordered: ED Orders 12/05/21 10:55 Complete Blood Count AUTO DIFF Stat Comprehensive Metabolic Panel Stat Lipase Stat Magnesium Stat Troponin & CK Cardiac Panel Stat 12/05/21 11:00 COVID19 -Nasal swab/Pre-Proc Stat 12/05/21 11:09 XR chest 1V Stat EKG-12 Lead Stat 12/05/21 13:05 Trop I [Troponin I] Stat Vital Signs Vital signs: Vital Signs - 8 hr 12/05/21 11:08 12/05/21 11:16 12/05/21 11:30 Temperature 97.5 F L Pulse Rate 56 L 65 54 L Respiratory Rate 16 18 20 Blood Pressure 174/67 H 174/67 H Pulse Oximetry 99 98 99 12/05/21 12:00 12/05/21 12:29 12/05/21 12:30 Temperature Pulse Rate 64 52 L 57 L Respiratory Rate 20 17 20 Blood Pressure 162/70 H 166/70 H Pulse Oximetry 99 99 99 12/05/21 13:00 12/05/21 13:01 12/05/21 13:30 Temperature Pulse Rate 49 L 66 57 L Respiratory Rate 22 24 25 H Blood Pressure 171/72 H Pulse Oximetry 100 100 88 L 12/05/21 13:31 12/05/21 14:00 12/05/21 14:01 Temperature Pulse Rate 53 L 44 L 43 L Respiratory Rate 21 16 15 Blood Pressure 161/67 H 155/67 H Pulse Oximetry 91 99 99 12/05/21 14:30 Temperature 98 F Pulse Rate 55 L Respiratory Rate 19 Blood Pressure 163/88 H Pulse Oximetry 99 MDM - Chest Pain Lab Data Attestation: I reviewed the patient's lab results. Result diagrams: 12/05/21 10:55 12/05/21 10:55 Labs: Lab Results 12/05/21 12/05/21 12/05/21 Range/Units 10:55 10:55 11:00 WBC 8.5 (4.5-11.0) X10^3/uL RBC 4.57 (4.5-5.9) X10^6/uL Hgb 14.1 (13.5-17.5) g/dL Hct 42.3 (41-53) % MCV 92.4 (80-100) fL MCH 30.8 (26-34) PG MCHC 33.3 (30-36) % RDW 14.1 (11.6-14.8) % Plt Count 265 (150-400) X10^3/uL Neut % (Auto) 74.9 (50-75) % Lymph % (Auto) 14.9 L (25-40) % [place] % (Auto) 7.8 (3-14) % Eos % (Auto) 1.7 L (2-4) % Baso % (Auto) 0.7 (0-2) % Neut # (Auto) 6400 (3030-7118) /uL Lymph # (Auto) 1300 (0925-8373) /uL [place] # (Auto) 700 (0-900) /uL Eos # (Auto) 100 (0-450) /uL Baso # (Auto) 100 (0-100) /uL Sodium 142 (137-145) mmol/L Potassium 4.1 (3.4-5.1) mmol/L Chloride 105 (98-107) mmol/L Carbon Dioxide 33 H (22-32) mmol/L BUN 19 (9-20) mg/dL Creatinine 1.07 (0.66-1.25) mg/dL Estimated GFR > 60.0 (>60) mL/min BUN/Creatinine Ratio 17.8 (6-22) Glucose 108 (80-110) mg/dL Calcium 10.0 (8.4-10.2) mg/dL Magnesium 2.2 (1.6-2.3) mg/dL Total Bilirubin 0.5 (0.2-1.3) mg/dL AST 19 (17-59) IU/L ALT 6 (<50) IU/L Alkaline Phosphatase 75 (38-126) U/L Total Creatine Kinase < 20 L (55-170) U/L CK-MB (CK-2) TNP CK-MB (CK-2) Rel Index TNP Troponin I < 0.012 (0.01-0.034) ng/mL Total Protein 6.6 (6.3-8.2) g/dL Albumin 3.9 (3.5-5.0) g/dL Globulin 2.7 (1.7-4.1) g/dL Albumin/Globulin Ratio 1.4 (1.0-2.8) Lipase 26 (23-300) U/L SARS-CoV-2 (PCR) Negative (Negative) 12/05/21 Range/Units 13:05 WBC (4.5-11.0) X10^3/uL RBC (4.5-5.9) X10^6/uL Hgb (13.5-17.5) g/dL Hct (41-53) % MCV (80-100) fL MCH (26-34) PG MCHC (30-36) % RDW (11.6-14.8) % Plt Count (150-400) X10^3/uL Neut % (Auto) (50-75) % Lymph % (Auto) (25-40) % [place] % (Auto) (3-14) % Eos % (Auto) (2-4) % Baso % (Auto) (0-2) % Neut # (Auto) (4240-8030) /uL Lymph # (Auto) (0723-7029) /uL [place] # (Auto) (0-900) /uL Eos # (Auto) (0-450) /uL Baso # (Auto) (0-100) /uL Sodium (137-145) mmol/L Potassium (3.4-5.1) mmol/L Chloride (98-107) mmol/L Carbon Dioxide (22-32) mmol/L BUN (9-20) mg/dL Creatinine (0.66-1.25) mg/dL Estimated GFR (>60) mL/min BUN/Creatinine Ratio (6-22) Glucose (80-110) mg/dL Calcium (8.4-10.2) mg/dL Magnesium (1.6-2.3) mg/dL Total Bilirubin (0.2-1.3) mg/dL AST (17-59) IU/L ALT (<50) IU/L Alkaline Phosphatase (38-126) U/L Total Creatine Kinase (55-170) U/L CK-MB (CK-2) CK-MB (CK-2) Rel Index Troponin I < 0.012 (0.01-0.034) ng/mL Total Protein (6.3-8.2) g/dL Albumin (3.5-5.0) g/dL Globulin (1.7-4.1) g/dL Albumin/Globulin Ratio (1.0-2.8) Lipase (23-300) U/L SARS-CoV-2 (PCR) (Negative) Urine Dip Bedside Urine Glucose Negative Bedside Urine Bilirubin - Negative Urine Specific [place] 1.025 Bedside Urine Occult Blood - Negative Bedside Urine Protein - Negative Bedside Urine Urobilinogen - Negative Bedside Urine Nitrite - Negative Imaging Data Chest x-ray: Radiologist's Impression: PROCEDURE:? XR CHEST 1V ? INDICATIONS:? chest pain ? TECHNIQUE:? One view of the chest was acquired.? ? COMPARISON:? [facility], , XR CHEST 1V, 08/13/2021, 13:11. ? FINDINGS:? ? Surgical changes and devices:? None.? ? Lungs and pleura:? Lungs are clear.? No pleural effusions or pneumothorax.? ? Mediastinum:? Mediastinal contours appear normal.? Heart size is normal.? ? Bones and chest wall:? No suspicious bony lesions.? Overlying soft tissues appear unremarkable.? ? IMPRESSION:? No acute cardiopulmonary disease process. ? ? Dictated by: Ying Cochran MD, PhD on 12/05/2021 at 12:24? ECG Data Attestation: I personally reviewed and interpreted this ECG as follows: Prior ECG tracings: available for review Interpretation: Sinus bradycardia rate 47 NV interval 206 QRS [address] changes similar to previous MDM Narrative Medical decision making narrative: Patient has no complaints at this time 2- troponins negative EKG. Daughter states they would not want any aggressive measures to be taken. At this time recommend outpatient follow up. Discharge Plan Departure Patient Disposition: Home Clinical Impression: Atypical chest pain Instructions: DI for Atypical Chest Pain Activity Restrictions/Additional Instructions: *You have been diagnosed with atypical chest pain *What to do: At this time please follow-up with your doctor and possibly Cardiology *Continue to take medications as directed *Follow up with your primary care provider in 2-3 days or call [phone] *Return to ER if you should have increasing chest pain jaw pain palpitations confusion shortness of breath or any new, worsening or concerning symptoms Prescriptions: No Action polyethylene glycol 3350 17 gram/dose powder 17 gram PO DAILY Qty: 510 12RF Rx Instructions: hold for diarrhea and for two days after quetiapine [Seroquel] 25 mg tablet 12.5 mg PO BEDTIME Qty: 30 3RF fluticasone furoate 27.5 mcg/actuation spray,suspension 1 spray INTRANASAL DAILY Qty: 9.1 3RF dabigatran etexilate 150 mg capsule 150 mg PO BID Qty: 180 1RF tamsulosin 0.4 mg capsule 0.8 mg PO QPM Qty: 60 5RF Rx Instructions: 0.8 mg PO daily 30 min after dinner; esomeprazole magnesium [Nexium] 40 mg capsule,delayed release(DR/EC) 40 mg PO DAILY Qty: 30 5RF Nuplazid 10 mg tablet 10 mg PO DAILY 0RF donepezil [Aricept] 10 mg tablet 10 mg PO DAILY Qty: 30 6RF rasagiline 1 mg tablet See Rx Instructions .ROUTE .COMPLEX Qty: 30 3RF Dose Instruction: GIVE 1 TABLET BY MOUTH ONCE A DAY Rx Instructions: GIVE 1 TABLET BY MOUTH ONCE A DAY carbidopa-levodopa 25-100 mg tablet 1 tab PO BEDTIME 0RF loperamide 2 mg capsule See Rx Instructions .ROUTE .COMPLEX MDD 8 0RF Rx Instructions: Take 2 capsules by mouth initially, followed by 1 cap after each loose unformed stool prn. Rytary 48.75-195 mg Capsule, Extended Release 1 cap PO TID 0RF Referrals: Julia Keith MD [Primary Care Provider] -
[2021-12-05 12:03] LABS: COVID19 -Nasal RAPID Negative (Negative)
[2021-12-05 13:34] LABS: Troponin I < 0.012 ng/mL (0.01-0.034)
== END 2021-12-05 14:50 | disposition home or self-care (01) ==
PROVIDERS: Emergency Provider Emergency Medicine; PCP Family Medicine
DX: R07.89 Other chest pain (principal); R68.84 Jaw pain; Z20.822 Contact with and (suspected) exposure to COVID-19
CPT/HCPCS: 36415; 71045; 80053; 81003; 82550; 83690; 83735; 84484; 85025; 87635; 93005; 93010; 99283; 99284; C9803

== ENCOUNTER 2022-06-26 08:45 | Emergency (ER) | payer MEDICARE, BC, SELFPAY ==
[2019-12-09 20:14] VITALS: BMI 23.4
[2022-06-26] VITALS (11 sets, daily range): BP systolic 140–165; BP diastolic 63–78; PULSE 38–55; RESP 12–20; TEMP 36; O2SAT 97–100
--- NOTE | 2022-06-26 08:52 | ED_ITS ---
HPI - General Adult General Chief complaint: Altered Mental Status Stated complaint: decreased LOC Time Seen by Provider: 06/26/22 08:49 Source: patient and EMS Mode of arrival: EMS History of Present Illness HPI narrative: Patient is an 86-year-old male. Was brought in by EMS for evaluation of a decreased level of consciousness, hypotension and bradycardia. According to previous notes he has a history of atrial fibrillation and also Parkinson's disease. He is on Pradaxa. He does have a PLOST form stating that he is a DNR/DNI with limited interventions. He comes from [facility]. Patient is unable to provide much history other than stating that he is not in any pain. Apparently last evening he was at his normal state of health which according to EMS reports from the facility he is able to ambulate and does play trivia. This morning at breakfast he was found to be at a decreased level of consciousness in his breakfast here. There is no signs of any trauma. Related Data Home Medications Medication Instructions Recorded Confirmed carbidopa 25 mg-levodopa 100 mg 1 tab PO BEDTIME 11/21/19 03/26/20 tablet loperamide 2 mg capsule See Rx Instructions .Route .COMPLEX 11/21/19 03/26/20 carbidopa ER 48.75 mg-levodopa 195 1 cap PO TID 12/07/19 03/26/20 mg capsule,extended release (Rytary) pimavanserin 10 mg tablet 10 mg PO DAILY 07/15/20 (Nuplazid) Previous Rx's Medication Instructions Recorded polyethylene glycol 3350 17 17 gram PO DAILY #510 grams 05/12/19 gram/dose oral powder quetiapine 25 mg tablet (Seroquel) 12.5 mg PO BEDTIME #30 tabs 01/03/20 fluticasone furoate 27.5 1 spray intranasal DAILY #9.1 mL 02/23/20 mcg/actuation nasal spray,suspension dabigatran etexilate 150 mg capsule 150 mg PO BID #180 caps 04/16/20 esomeprazole magnesium 40 mg 40 mg PO DAILY #30 caps 04/16/20 capsule,delayed release (Nexium) tamsulosin 0.4 mg capsule 0.8 mg PO QPM #60 caps 04/16/20 donepezil 10 mg tablet (Aricept) 10 mg PO DAILY #30 tabs 08/07/20 rasagiline 1 mg tablet See Rx Instructions .Route 06/18/22 .COMPLEX #90 tabs Allergies Allergy/AdvReac Type Severity Reaction Status Date / Time nitrofurantoin AdvReac Verified 07/31/21 09:37 [From Macrobid] Review of Systems Review of Systems Narrative: Somewhat limited review of systems Constitutional Comments: Patient denies headache Cardiovascular Comments: Patient denies chest pain Respiratory Comments: Denies any problems breathing Gastrointestinal Comments: Denies any abdominal pain or nausea Neurologic Comments: Per HPI Hematologic/Lymphatic On Anticoagulants: Yes Patient History Medical History Atrial fibrillation (2009) 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 Cataract (1999) Chest wall contusion Chronic back pain (1999) Colon polyps (2001) Dementia Diverticular disease (2006) Esophageal ring (1999) Esophageal web (1999) Fecal incontinence (2014) GERD (gastroesophageal reflux disease) (1999) Gout (1969) Hayfever (1999) Hearing loss (1999) Herpes (1982) Hypertension (2007) Melanoma (2001) Parkinson's disease (2010) Polymyalgia rheumatica (2010) Recurrent sinusitis (1999) Skin cancer (2006) Sleep apnea (2010) Tinnitus (2015) Urinary incontinence (2014) Surgical History Anesthesia History of sinus surgery (1989) Status post hernia repair (1999) Family History Grandfather Heart disease Grandmother Heart disease Father Alcoholism Mother Alzheimer's disease Grandfather MVA (motor vehicle accident) Grandmother No problems noted. Social History household members: other Smoking Status: Former smoker alcohol intake: current Smoking Status: Former smoker alcohol intake frequency: holidays/special occasions only Substance Use Type: does not use Exam Initial Vital Signs Initial Vital Signs: Vital Signs Temperature 96.8 F L 06/26/22 08:52 Pulse Rate 42 L 06/26/22 08:52 Respiratory Rate 20 06/26/22 08:52 Blood Pressure 158/78 H 06/26/22 08:52 Pulse Oximetry 97 06/26/22 08:52 Oxygen Delivery Method 06/26/22 08:52 Const General: comfortable HENMT Head: normal to inspection and normocephalic Eyes Other: Pupils 2 mm equal bilateral Resp Effort & Inspection: normal respiratory effort Auscultation: clear to auscultation bilaterally Cardio Rate: bradycardic Rhythm: regular rhythm GI Inspection: normal to inspection and non-distended Palpation: soft Skin General: no rashes or lesions noted Neuro Other: Patient is easily arousable. Does not answer when asked if he knows where he is. He does follow commands. He states it is ?20 something ?when asked the year Extrem General: normal to inspection and capillary refill normal Scores GCS [place] coma scale eye opening: Spontaneous [place] coma scale verbal response: Confused Real coma scale motor response: Obey commands Real coma scale total score: 14 Course Orders Ordered: ED Orders 06/26/22 08:53 EKG-12 Lead Routine 06/26/22 08:57 Ammonia (NH3) Stat 06/26/22 08:58 CT head/brain wo con Stat 06/26/22 09:00 Complete Blood Count AUTO DIFF Stat Comprehensive Metabolic Panel Stat Ethanol (ETOH) Stat Lipase Stat Magnesium Stat Partial Thromboplastin Time Stat Prothrombin Time INR Stat Troponin & CK Cardiac Panel Stat Vital Signs Vital signs: Vital Signs - 8 hr 06/26/22 11:30 06/26/22 11:30 Pulse Rate 55 L Respiratory Rate 20 Blood Pressure 152/67 H Pulse Oximetry 97 Oxygen Delivery Method Room Air Medical Decision Making Medical Records Medical records reviewed: Yes I reviewed the patient's medical records. Lab Data Lab results reviewed: Yes I reviewed the patient's lab results. Result diagrams: 06/26/22 09:00 06/26/22 09:00 Labs: Lab Results 06/26/22 06/26/22 06/26/22 Range/Units 09:00 09:00 09:00 WBC 6.2 (4.5-11.0) X10^3/uL RBC 4.32 L (4.5-5.9) X10^6/uL Hgb 13.4 L (13.5-17.5) g/dL Hct 39.9 L (41-53) % MCV 92.5 (80-100) fL MCH 30.9 (26-34) PG MCHC 33.4 (30-36) % RDW 13.7 (11.6-14.8) % Plt Count 267 (150-400) X10^3/uL Neut % (Auto) 67.7 (50-75) % Lymph % (Auto) 18.4 L (25-40) % Buchanan % (Auto) 9.4 (3-14) % Eos % (Auto) 4.0 (2-4) % Baso % (Auto) 0.5 (0-2) % Neut # (Auto) 4200 (0357-5955) /uL Lymph # (Auto) 1100 (6267-0829) /uL [place]anan # (Auto) 600 (0-900) /uL Eos # (Auto) 200 (0-450) /uL Baso # (Auto) 0 (0-100) /uL PT 13.2 H (10.1-12.7) SECONDS INR 1.2 (0.9-1.3) APTT 57 H (26-36) SECONDS Sodium 139 (137-145) mmol/L Potassium 4.3 (3.4-5.1) mmol/L Chloride 106 (98-107) mmol/L Carbon Dioxide 31 (22-32) mmol/L BUN 22 H (9-20) mg/dL Creatinine 0.94 (0.66-1.25) mg/dL Estimated GFR > 60 (>60) mL/min BUN/Creatinine Ratio 23.4 H (6-22) Glucose 97 (80-110) mg/dL Calcium 9.5 (8.4-10.2) mg/dL Magnesium 2.2 (1.6-2.3) mg/dL Total Bilirubin 0.7 (0.2-1.3) mg/dL AST 20 (17-59) IU/L ALT 4 (<50) IU/L Alkaline Phosphatase 70 (38-126) U/L Ammonia (9-30) umol/L Total Creatine Kinase 28 L (55-170) U/L CK-MB (CK-2) TNP CK-MB (CK-2) Rel Index TNP Troponin I < 0.012 (0.01-0.034) ng/mL Total Protein 6.4 (6.3-8.2) g/dL Albumin 3.5 (3.5-5.0) g/dL Globulin 2.9 (1.7-4.1) g/dL Albumin/Globulin Ratio 1.2 (1.0-2.8) Lipase 24 (23-300) U/L Ethyl Alcohol < 10 ( - 10) mg/dL 06/26/22 06/26/22 Range/Units 09:00 09:50 WBC (4.5-11.0) X10^3/uL RBC (4.5-5.9) X10^6/uL Hgb (13.5-17.5) g/dL Hct (41-53) % MCV (80-100) fL MCH (26-34) PG MCHC (30-36) % RDW (11.6-14.8) % Plt Count (150-400) X10^3/uL Neut % (Auto) (50-75) % Lymph % (Auto) (25-40) % Buchanan % (Auto) (3-14) % Eos % (Auto) (2-4) % Baso % (Auto) (0-2) % Neut # (Auto) (9505-8812) /uL Lymph # (Auto) (9030-8809) /uL Buchanan # (Auto) (0-900) /uL Eos # (Auto) (0-450) /uL Baso # (Auto) (0-100) /uL PT (10.1-12.7) SECONDS INR (0.9-1.3) APTT (26-36) SECONDS Sodium (137-145) mmol/L Potassium (3.4-5.1) mmol/L Chloride (98-107) mmol/L Carbon Dioxide (22-32) mmol/L BUN (9-20) mg/dL Creatinine (0.66-1.25) mg/dL Estimated GFR (>60) mL/min BUN/Creatinine Ratio (6-22) Glucose (80-110) mg/dL Calcium (8.4-10.2) mg/dL Magnesium (1.6-2.3) mg/dL Total Bilirubin (0.2-1.3) mg/dL AST (17-59) IU/L ALT (<50) IU/L Alkaline Phosphatase (38-126) U/L Ammonia < 9 L (9-30) umol/L Total Creatine Kinase Cancelled (55-170) U/L CK-MB (CK-2) Cancelled CK-MB (CK-2) Rel Index Cancelled Troponin I Cancelled (0.01-0.034) ng/mL Total Protein (6.3-8.2) g/dL Albumin (3.5-5.0) g/dL Globulin (1.7-4.1) g/dL Albumin/Globulin Ratio (1.0-2.8) Lipase (23-300) U/L Ethyl Alcohol ( - 10) mg/dL Point of Care Testing Glucose POC 90 Point of care testing: Point of Care Testing Glucose POC [address] scan - head: Radiologist's Impression: [address] [address] [address] Scan Report Signed Patient: Yan Egan MR#: [id number] : 1935 Acct:[id number] Age/Sex: 86 / M Date of Service: 06/26/22 Loc: ED Accession Number: [id number] ?? Procedure: CT head/brain wo con Ordering Provider: Sahil Armenta D.O. PROCEDURE:? CT HEAD/BRAIN WO CON ? INDICATIONS:? change in LOC ? TECHNIQUE:? Noncontrast 4.5 mm thick angled axial sections acquired from the foramen magnum to the vertex, with coronal and sagittal reformats.? For radiation dose reduction, the following was used:? automated exposure control, adjustment of mA and/or kV according to patient size.? ? COMPARISON:? [facility], CT, CT HEAD/BRAIN WO CON, 11/21/2019, 9:18. ? FINDINGS:? Image quality:? Excellent.? ? CSF spaces:? Basal cisterns are patent.? No extra-axial fluid collections.? The ventricles are symmetric in size and shape.? ? Brain:? No intracranial bleeds or masses.? There is cerebral volume loss for age, with resultant ventricular and sulcal prominence.? There are periventricular and deep white matter chronic small vessel ischemic changes.? There is intracranial internal carotid artery atherosclerosis.? ? Skull and face:? Calvarium and visualized facial bones appear intact, without suspicious lesions.? ? Sinuses:? Visualized sinuses and mastoids are clear.? ? IMPRESSION:? ? 1. No acute intracranial findings. ? 2. Mild findings likely associated with chronic microvascular ischemic changes.? ? ? Dictated by: Jenny Solis M.D. on 06/26/2022 at 9:19 ? ? Approved by: Jenny Solis M.D. on 06/26/2022 at 9:21 ECG Data Attestation: I personally reviewed and interpreted this ECG as follows: Interpretation: Sinus rhythm Ventricular rate of 39 Normal QRS Normal QTC No ST T wave changes MDM Narrative Medical decision making narrative: Patient was really unable to provide any specific history and the history that was given to EMS from the living facility was also fairly vague as to what happened this morning. It does appear that he is at the [facility] because of his Parkinson's however he is very active and has very little memory/cognitive issues. I did discuss the case with the patient's daughter over the phone. Does not appear the patient has ever had seizures. During his stay here in the ER he did improve somewhat however does not appear that he is back to baseline. His head CT is unremarkable. His daughter brought in his medicine list and there was not been any recent changes in his medications. Patient was bradycardic into the 30s/40s and this did improve while he was here. Review of his prior no shows that he has been in the 40s/50s in the past. His daughter states that his heart rate is normally low. I discussed the case with Dr. Pérez and also TARYN samano who are the patient's primary providers. They feel that the patient's presentation today in the emergency department is not at his baseline. I then had a very long discussion with the patient's daughter regarding her goals of care. The patient is a DNR/DNI with limited interven tions. We did discuss admitting the patient to the hospital, Cardiology consultation for pacemaker and other further evaluation such as MRI however the patient's daughter states that the patient would not want this and she feels that the patient should be discharged back to his living facility. She stated that if she would received a call prior to his transfer that she would have told the facility to not transfer him. I did relay this to the patient's primary providers. We will hold on any further workup for now because of this discussion. Will transfer patient back to living facility. Discharge Plan Departure Patient Disposition: Home Clinical Impression: Parkinson's disease, Acute confusion, Bradycardia Instructions: Bradycardia Activity Restrictions/Additional Instructions: Yan can continue to take all of his medications as directed. I do recommend that his primary doctor be notified of his visit today. He can return to the emergency department for any new or worsening symptoms. Prescriptions: No Action polyethylene glycol 3350 17 gram/dose powder 17 gram PO DAILY Qty: 510 12RF Rx Instructions: hold for diarrhea and for two days after quetiapine [Seroquel] 25 mg tablet 12.5 mg PO BEDTIME Qty: 30 3RF fluticasone furoate 27.5 mcg/actuation spray,suspension 1 spray INTRANASAL DAILY Qty: 9.1 3RF dabigatran etexilate 150 mg capsule 150 mg PO BID Qty: 180 1RF tamsulosin 0.4 mg capsule 0.8 mg PO QPM Qty: 60 5RF Rx Instructions: 0.8 mg PO daily 30 min after dinner; esomeprazole magnesium [Nexium] 40 mg capsule,delayed release(DR/EC) 40 mg PO DAILY Qty: 30 5RF Nuplazid 10 mg tablet 10 mg PO DAILY donepezil [Aricept] 10 mg tablet 10 mg PO DAILY Qty: 30 6RF rasagiline 1 mg tablet See Rx Instructions .ROUTE .COMPLEX Qty: 90 0RF Dose Instruction: GIVE 1 TABLET BY MOUTH ONCE A DAY Rx Instructions: GIVE 1 TABLET BY MOUTH ONCE A DAY carbidopa-levodopa 25-100 mg tablet 1 tab PO BEDTIME loperamide 2 mg capsule See Rx Instructions .ROUTE .COMPLEX MDD 8 Rx Instructions: Take 2 capsules by mouth initially, followed by 1 cap after each loose unformed stool prn. Rytary 48.75-195 mg Capsule, Extended Release 1 cap PO TID Referrals: Julia Keith MD [Primary Care Provider] - Visit Report Forms: Patient Portal/API
--- NOTE | 2022-06-26 08:58 | DI.CT.S_ITS ---
PROCEDURE: CT HEAD/BRAIN WO CON INDICATIONS: change in LOC TECHNIQUE: Noncontrast 4.5 mm thick angled axial sections acquired from the foramen magnum to the vertex, with coronal and sagittal reformats. For radiation dose reduction, the following was used: automated exposure control, adjustment of mA and/or kV according to patient size. COMPARISON: [facility], CT, CT HEAD/BRAIN WO CON, 11/21/2019, 9:18. FINDINGS: Image quality: Excellent. CSF spaces: Basal cisterns are patent. No extra-axial fluid collections. The ventricles are symmetric in size and shape. Brain: No intracranial bleeds or masses. There is cerebral volume loss for age, with resultant ventricular and sulcal prominence. There are periventricular and deep white matter chronic small vessel ischemic changes. There is intracranial internal carotid artery atherosclerosis. Skull and face: Calvarium and visualized facial bones appear intact, without suspicious lesions. Sinuses: Visualized sinuses and mastoids are clear. IMPRESSION: 1. No acute intracranial findings. 2. Mild findings likely associated with chronic microvascular ischemic changes. Dictated by: Jenny Solis M.D. on 06/26/2022 at 9:19 Approved by: Jenny Solis M.D. on 06/26/2022 at 9:21
[2022-06-26 09:08] LABS: Add Manual Diff / Slide Review NO; Basophils Absolute Auto 0 /uL (0-100); Basophils Percent Auto 0.5 % (0-2); Eosinophils Absolute Auto 200 /uL (0-450); Hematocrit 39.9 % (41-53); Hemoglobin 13.4 g/dL (13.5-17.5); Lymphocytes Absolute Auto 1100 /uL (1100-4500); Lymphocytes Percent Auto 18.4 % (25-40); Mean Corpuscular HGB Conc 33.4 % (30-36); Mean Corpuscular Hemoglobin 30.9 PG (26-34); Mean Corpuscular Volume 92.5 fL (80-100); Monocytes Absolute Auto 600 /uL (0-900); Monocytes Percent Auto 9.4 % (3-14); Neutrophils Absolute Auto 4200 /uL (1500-7000); Neutrophils Percent Auto 67.7 % (50-75); Platelet Count 267 X10^3/uL (150-400); Red Blood Cell Count 4.32 X10^6/uL (4.5-5.9); Red Cell Distribution Width 13.7 % (11.6-14.8); White Blood Cell Count 6.2 X10^3/uL (4.5-11.0)
[2022-06-26 09:15] LABS: Alanine Aminotransferase 4 IU/L (<50); Albumin 3.5 g/dL (3.5-5.0); Albumin Globulin Ratio 1.2 (1.0-2.8); Alkaline Phosphatase 70 U/L (38-126); Aspartate Aminotransferase 20 IU/L (17-59); BUN Creatinine Ratio 23.4 (6-22); Bilirubin Total 0.7 mg/dL (0.2-1.3); Blood Urea Nitrogen 22 mg/dL (9-20); Calcium 9.5 mg/dL (8.4-10.2); Carbon Dioxide 31 mmol/L (22-32); Chloride 106 mmol/L (98-107); Creatine Kinase 28 U/L (55-170); Estimated Glomerular Filt Rate > 60 mL/min (>60); Ethanol (ETOH) < 10 mg/dL; Globulin 2.9 g/dL (1.7-4.1); Glucose 97 mg/dL (80-110); HEMOLYSIS < 15 (0-50); INR 1.2 (0.9-1.3); Lipase 24 U/L (23-300); Magnesium 2.2 mg/dL (1.6-2.3); Potassium 4.3 mmol/L (3.4-5.1); Prothrombin Time 13.2 SECONDS (10.1-12.7); Sodium 139 mmol/L (137-145); Total Protein 6.4 g/dL (6.3-8.2)
[2022-06-26 09:17] LABS: PTT Partial Thromboplastin Tim 57 SECONDS (26-36)
[2022-06-26 09:25] LABS: Troponin I < 0.012 ng/mL (0.01-0.034)
[2022-06-26 10:18] LABS: Ammonia (NH3) < 9 umol/L (9-30)
== END 2022-06-26 11:57 | disposition home or self-care (01) ==
PROVIDERS: Emergency Provider Emergency Medicine; PCP Family Medicine
DX: R41.0 Disorientation, unspecified (principal); G20 Parkinson's disease; R00.1 Bradycardia, unspecified; Z79.01 Long term (current) use of anticoagulants
CPT/HCPCS: 36415; 70450; 80053; 80320; 82140; 82550; 83690; 83735; 84484; 85025; 85610; 85730; 93005; 99284

== ENCOUNTER 2022-07-29 15:29 | Emergency (ER) | payer MEDICARE, BC, SELFPAY ==
[2019-12-09 20:14] VITALS: BMI 23.4
[2022-07-29] VITALS (8 sets, daily range): BP systolic 123–164; BP diastolic 63–74; PULSE 46–107; RESP 14–21; TEMP 36.9; O2SAT 98–100; BMI 22.4
--- NOTE | 2022-07-29 | DI.RAD.S_ITS ---
PROCEDURE: XR FEMUR LT MIN 2V INDICATIONS: FALL TECHNIQUE: 3 views of the femur were acquired. COMPARISON: [facility], CR, XR HIP W PEL IF DONE LT 2V, 07/29/2022, 15:37. FINDINGS: Bones: No fractures or dislocations. No suspicious bony lesions. Soft tissues: No suspicious soft tissue calcifications or masses. IMPRESSION: No visualized acute fracture or dislocation. However, if clinical concern and/or pain persist, short interval imaging followup in 7-10 days is recommended, as occult injury cannot be definitively excluded. Dictated by: Cindy Leon M.D. on 07/29/2022 at 16:20 Approved by: Cindy Leon M.D. on 07/29/2022 at 16:21
--- NOTE | 2022-07-29 | DI.RAD.S_ITS ---
PROCEDURE: XR HIP W PEL IF DONE LT 2V INDICATIONS: FALL TECHNIQUE: AP pelvis with lateral view(s) of the left hip(s). COMPARISON: [facility], CR, XR FEMUR LT MIN 2V, 07/29/2022, 15:37. FINDINGS: Bones: No fractures or dislocations. Pelvic ring appears intact. No suspicious bony lesions. Soft tissues: The visualized bowel gas pattern is normal. No suspicious soft tissue calcifications. IMPRESSION: No visualized acute fracture or dislocation. However, if clinical concern and/or pain persist, short interval imaging followup in 7-10 days is recommended, as occult injury cannot be definitively excluded. Dictated by: Cindy Leon M.D. on 07/29/2022 at 16:20 Approved by: Cindy Leon M.D. on 07/29/2022 at 16:20
--- NOTE | 2022-07-29 15:31 | DI.CT.S_ITS ---
PROCEDURE: CT HEAD/BRAIN WO CON INDICATIONS: GLF pain hit head/thinners TECHNIQUE: Noncontrast 4.5 mm thick angled axial sections acquired from the foramen magnum to the vertex, with coronal and sagittal reformats. For radiation dose reduction, the following was used: automated exposure control, adjustment of mA and/or kV according to patient size. COMPARISON: [facility], CT, CT HEAD/BRAIN WO CON, 06/26/2022, 9:12. FINDINGS: Image quality: Excellent. CSF spaces: Basal cisterns are patent. No extra-axial fluid collections. The ventricles are symmetric in size and shape. Brain: No intracranial bleeds or masses. There is cerebral volume loss for age, with resultant ventricular and sulcal prominence. There are periventricular and deep white matter chronic small vessel ischemic changes. There is intracranial internal carotid artery atherosclerosis. Skull and face: Calvarium and visualized facial bones appear intact, without suspicious lesions. Sinuses: Visualized sinuses and mastoids are clear. IMPRESSION: 1. No acute intracranial process. 2. Moderate to severe atrophy and chronic microvascular ischemic changes. Dictated by: Cindy Leon M.D. on 07/29/2022 at 15:50 Approved by: Cindy Leon M.D. on 07/29/2022 at 16:05
--- NOTE | 2022-07-29 15:31 | DI.CT.S_ITS ---
PROCEDURE: CT CERVICAL SPINE WO CON INDICATIONS: GLF pain hit head/thinners TECHNIQUE: Noncontrast 3 mm thick sections acquired from the skull base to the T4 level. Sagittal and coronal reformats were then constructed. For radiation dose reduction, the following was used: automated exposure control, adjustment of mA and/or kV according to patient size. COMPARISON: [facility], CT, CT CERVICAL SPINE WO CON, 11/21/2019, 9:18. FINDINGS: Image quality: Excellent. Bones: No fractures or dislocations. Visualized superior ribs are intact. Multilevel degenerative changes are present including trace anterolisthesis of C4 on C5 and severe disc space narrowing at C5-6 and C6-7. Multilevel uncovertebral arthropathy is present. Soft tissues: Prevertebral soft tissues are normal in thickness. No paravertebral hematomas. No apical pneumothoraces. IMPRESSION: Multilevel degenerative changes without visualized fracture. Dictated by: Cindy Leon M.D. on 07/29/2022 at 16:05 Approved by: Cindy Leon M.D. on 07/29/2022 at 16:11
--- NOTE | 2022-07-29 15:54 | ED.FALL ---
HPI - Fall General Chief Complaint: Fall Stated Complaint: Fell out of chair,left hip pain Time Seen by Provider: 07/29/22 15:54 History of Present Illness HPI Narrative: Patient has Parkinson's. He is a resident at [facility]. He falls frequently. He fell prior to arrival, perhaps he needs head at the side of the bed when he went down. He has a small occipital laceration. He is awake, and responsive. He has no visual changes. He currently complains no head or neck pain. He has no back pain. He denies chest pain or dyspnea. He complained of left hip pain upon arrival. He has no upper extremity discomfort. His left lower leg pain has greatly improved. Related Data Home Medications Medication Instructions Recorded Confirmed carbidopa 25 mg-levodopa 100 mg 1 tab PO BEDTIME 11/21/19 03/26/20 tablet loperamide 2 mg capsule See Rx Instructions .Route .COMPLEX 11/21/19 03/26/20 carbidopa ER 48.75 mg-levodopa 195 1 cap PO TID 12/07/19 03/26/20 mg capsule,extended release (Rytary) pimavanserin 10 mg tablet 10 mg PO DAILY 07/15/20 (Nuplazid) Previous Rx's Medication Instructions Recorded polyethylene glycol 3350 17 17 gram PO DAILY #510 grams 05/12/19 gram/dose oral powder quetiapine 25 mg tablet (Seroquel) 12.5 mg PO BEDTIME #30 tabs 01/03/20 fluticasone furoate 27.5 1 spray intranasal DAILY #9.1 mL 02/23/20 mcg/actuation nasal spray,suspension dabigatran etexilate 150 mg capsule 150 mg PO BID #180 caps 04/16/20 esomeprazole magnesium 40 mg 40 mg PO DAILY #30 caps 04/16/20 capsule,delayed release (Nexium) tamsulosin 0.4 mg capsule 0.8 mg PO QPM #60 caps 04/16/20 donepezil 10 mg tablet (Aricept) 10 mg PO DAILY #30 tabs 08/07/20 rasagiline 1 mg tablet See Rx Instructions .Route 06/18/22 .COMPLEX #90 tabs acetaminophen 325 mg tablet 325 mg PO Q4H PRN fever or pain 07/22/22 #360 tabs magnesium hydroxide 400 mg/5 mL 30 ml PO DAILY PRN Constipation, 07/22/22 oral suspension (Milk of Magnesia) if no BM in 3 days #355 mL Allergies Allergy/AdvReac Type Severity Reaction Status Date / Time nitrofurantoin AdvReac Verified 07/31/21 09:37 [From Macrobid] Review of Systems Review of Systems Narrative: ROS is limited due to the patient's medical condition. Constitutional Constitutional: Reports body ache(s), Denies fever(s), Reports frequent falls, Denies headache(s) and Reports malaise Eyes Eyes: Denies blurry vision ENT Ears, Nose, Mouth, and Throat: Denies headache(s) Cardiovascular Cardiovascular: Denies chest pain, Denies syncope, Denies rapid heart rate, Reports pedal edema, Denies irregular heart rhythm and Denies dyspnea Respiratory Respiratory: Denies dyspnea Gastrointestinal Gastrointestinal: Denies abdominal pain, Denies nausea and Reports other (Normal appetite) Musculoskeletal Comments: Unstable walking. 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 Cataract (1999) Chest wall contusion Chronic back pain (1999) Colon polyps (2001) Dementia Diverticular disease (2006) Esophageal ring (1999) Esophageal web (1999) Fecal incontinence (2014) GERD (gastroesophageal reflux disease) (1999) Gout (1969) Hayfever (1999) Hearing loss (1999) Herpes (1982) Hypertension (2007) Melanoma (2001) Parkinson's disease (2010) Polymyalgia rheumatica (2010) Recurrent sinusitis (1999) Skin cancer (2006) Sleep apnea (2010) Tinnitus (2015) Urinary incontinence (2014) Surgical History Anesthesia History of sinus surgery (1989) Status post hernia repair (1999) Family History Grandfather Heart disease Grandmother Heart disease Father Alcoholism Mother Alzheimer's disease Grandfather MVA (motor vehicle accident) Grandmother No problems noted. Social History household members: other Smoking Status: Former smoker alcohol intake: current Smoking Status: Former smoker alcohol intake frequency: holidays/special occasions only Substance Use Type: does not use Exam Initial Vital Signs Initial Vital Signs: Vital Signs Temperature 98.4 F 07/29/22 16:08 Pulse Rate 49 L 07/29/22 16:08 Respiratory Rate 16 07/29/22 16:08 Blood Pressure 123/65 07/29/22 16:08 Pulse Oximetry 100 07/29/22 16:08 Oxygen Delivery Method 07/29/22 16:08 Const General: cooperative, comfortable and frail appearing Nutritional Appearance: thin Orientation: Orientation (Normal to person and place.) [facility] Head: other (Shallow occipital laceration, 2 cm.) Ears: TM's normal bilaterally Face and sinus: normal facial exam Mouth: oral mucosae normal Eyes General: Yes appearance normal, both eyes and all related structures Neck Neck: normal visual inspection and No tender Thyroid: thyroid normal Chest Chest: normal palpation of entire chest wall Resp Effort & Inspection: normal respiratory effort Cardio Rate: regular rate Rhythm: regular rhythm Heart Sounds: S1 normal, S2 normal and no murmurs GI Inspection: normal to inspection Palpation: soft and No tender Auscultation: normal bowel sounds Back/Spine/Pelvis Back: normal to inspection and No back tenderness Skin General: no rashes or lesions noted (Small scalp laceration. Otherwise normal.) Neuro General: patient alert, patient awake, oriented (Person and place) and no focal motor deficits Speech: speech normal Extrem Other: Patient has rigidity in upper and lower extremities, consistent with Parkinson's. He has no limitations motion in upper lower extremities. He has mild tenderness in the left hip but normal flexion and extension. No palpable deformities. Tenderness extends to the left thigh. There is no malrotation lower extremity. The knees and ankles are normal. Peripheral pulses are present. Psych Appearance: disheveled Speech and Movement: other (Slow to answer questions. Very pleasant.) Procedures Laceration Repair Laceration 1: Size (cm): 2 Description: linear Depth: simple, single layer Pre-repair: wound explored and irrigated extensively Skin layer closed with: dermabond Course Orders Ordered: ED Orders 07/29/22 15:31 CT cervical spine wo con Stat CT head/brain wo con Stat 07/29/22 15:34 Complete Blood Count AUTO DIFF Stat Comprehensive Metabolic Panel Stat Lipase Stat Magnesium Stat Troponin & CK Cardiac Panel Stat 07/29/22 16:51 EKG-12 Lead Stat 07/29/22 16:52 XR chest 1V Stat Vital Signs Vital signs: Vital Signs - 8 hr 07/29/22 16:08 07/29/22 16:14 07/29/22 16:15 Temperature 98.4 F Pulse Rate 49 L 46 L 50 L Respiratory Rate 16 17 16 Blood Pressure 123/65 Pulse Oximetry 100 99 100 Oxygen Delivery Method Room Air 07/29/22 16:15 07/29/22 16:30 07/29/22 16:30 Temperature Pulse Rate 48 L Respiratory Rate 18 Blood Pressure 133/65 139/64 Pulse Oximetry 98 Oxygen Delivery Method 07/29/22 17:00 07/29/22 17:01 07/29/22 17:01 Temperature Pulse Rate 47 L 47 L Respiratory Rate 16 14 Blood Pressure 164/63 H Pulse Oximetry 100 99 Oxygen Delivery Method 07/29/22 17:30 07/29/22 17:31 07/29/22 17:31 Temperature Pulse Rate 92 H 107 H Respiratory Rate 21 15 Blood Pressure 149/74 H Pulse Oximetry 99 99 Oxygen Delivery Method MDM - Fall Lab Data Result diagrams: 07/29/22 15:34 07/29/22 15:34 Labs: Lab Results 07/29/22 07/29/22 Range/Units 15:34 15:34 WBC 8.3 (4.5-11.0) X10^3/uL RBC 4.11 L (4.5-5.9) X10^6/uL Hgb 12.7 L (13.5-17.5) g/dL Hct 38.0 L (41-53) % MCV 92.4 (80-100) fL MCH 31.0 (26-34) PG MCHC 33.5 (30-36) % RDW 13.9 (11.6-14.8) % Plt Count 272 (150-400) X10^3/uL Neut % (Auto) 69.1 (50-75) % Lymph % (Auto) 16.5 L (25-40) % [place] % (Auto) 11.8 (3-14) % Eos % (Auto) 2.1 (2-4) % Baso % (Auto) 0.5 (0-2) % Neut # (Auto) 5700 (0405-8710) /uL Lymph # (Auto) 1400 (4181-3100) /uL [place] # (Auto) 1000 H (0-900) /uL Eos # (Auto) 200 (0-450) /uL Baso # (Auto) 0 (0-100) /uL Total Counted Cancelled Seg Neutrophils % Cancelled Band Neutrophils % Cancelled Lymphocytes % (Manual) Cancelled Atypical Lymphs % Cancelled Monocytes % (Manual) Cancelled Eosinophils % (Manual) Cancelled Basophils % (Manual) Cancelled Metamyelocytes % Cancelled Myelocytes % Cancelled Promyelocytes % Cancelled Blast Cells % Cancelled Neutrophils # (Manual) Cancelled Nucleated RBCs Cancelled Differential Comment Cancelled Hypersegmented Neuts Cancelled Reactive Lymphocytes Cancelled Plasma Cells Cancelled Smudge Cells Cancelled Other Cell Type Cancelled Toxic Granulation Cancelled Toxic Vacuolation Cancelled Dohle Bodies Cancelled Saida Rods Cancelled WBC Morphology Comment Cancelled Platelet Estimate Cancelled Clumped Platelets Cancelled Plt Morphology Comment Cancelled RBC Morphology Cancelled Dimorphic RBCs Cancelled Polychromasia Cancelled Hypochromasia Cancelled Poikilocytosis Cancelled Basophilic Stippling Cancelled Anisocytosis Cancelled Microcytosis Cancelled Macrocytosis Cancelled Spherocytes Cancelled Pappenheimer Bodies Cancelled Sickle Cells Cancelled Target Cells Cancelled Tear Drop Cells Cancelled Ovalocytes Cancelled Stomatocytes Cancelled Helmet Cells Cancelled [place] Bodies Cancelled [place] Rings Cancelled Cheryl Cells Cancelled Acanthocytes (Spur) Cancelled Rouleaux Cancelled Schistocytes Cancelled Sodium 141 (137-145) mmol/L Potassium 4.2 (3.4-5.1) mmol/L Chloride 104 (98-107) mmol/L Carbon Dioxide 29 (22-32) mmol/L BUN 27 H (9-20) mg/dL Creatinine 1.08 (0.66-1.25) mg/dL Estimated GFR > 60 (>60) mL/min BUN/Creatinine Ratio 25.0 H (6-22) Glucose 103 (80-110) mg/dL Calcium 9.7 (8.4-10.2) mg/dL Magnesium 2.3 (1.6-2.3) mg/dL Total Bilirubin 0.6 (0.2-1.3) mg/dL AST 23 (17-59) IU/L ALT 7 (<50) IU/L Alkaline Phosphatase 83 (38-126) U/L Total Creatine Kinase 42 L (55-170) U/L CK-MB (CK-2) TNP CK-MB (CK-2) Rel Index TNP Troponin I < 0.012 (0.01-0.034) ng/mL Total Protein 6.8 (6.3-8.2) g/dL Albumin 3.7 (3.5-5.0) g/dL Globulin 3.1 (1.7-4.1) g/dL Albumin/Globulin Ratio 1.2 (1.0-2.8) Lipase 25 (23-300) U/L Imaging Data CT scan - head: Radiologist's Impression: Atrophy. No acute findings. CT - cervical spine: Radiologist's Impression: Osteoarthritis. No acute findings. No fracture. Chest x-ray: Radiologist's Impression: No acute findings. Left hip x-ray: Radiologist's Impression: No pelvic fracture. No left hip fracture. Left femur: Radiologist's Impression: No acute bony injury. ECG Data Attestation: I personally reviewed and interpreted this ECG as follows: (Sinus Cordell rate 46 beats per minute normal intervals. No ectopy. No acute ST T wave changes.) Discharge Plan Departure Patient Disposition: Home Clinical Impression: Parkinson's disease, Laceration of scalp, Frequent falls Instructions: DI for Parkinson Disease Activity Restrictions/Additional Instructions: Tylenol as needed for pain. Use walkers, supports, take all cautions to prevent falls. Return here as needed. Prescriptions: No Action polyethylene glycol 3350 17 gram/dose powder 17 gram PO DAILY Qty: 510 12RF Rx Instructions: hold for diarrhea and for two days after quetiapine [Seroquel] 25 mg tablet 12.5 mg PO BEDTIME Qty: 30 3RF fluticasone furoate 27.5 mcg/actuation spray,suspension 1 spray INTRANASAL DAILY Qty: 9.1 3RF dabigatran etexilate 150 mg capsule 150 mg PO BID Qty: 180 1RF tamsulosin 0.4 mg capsule 0.8 mg PO QPM Qty: 60 5RF Rx Instructions: 0.8 mg PO daily 30 min after dinner; esomeprazole magnesium [Nexium] 40 mg capsule,delayed release(DR/EC) 40 mg PO DAILY Qty: 30 5RF Nuplazid 10 mg tablet 10 mg PO DAILY donepezil [Aricept] 10 mg tablet 10 mg PO DAILY Qty: 30 6RF rasagiline 1 mg tablet See Rx Instructions .ROUTE .COMPLEX Qty: 90 0RF Dose Instruction: GIVE 1 TABLET BY MOUTH ONCE A DAY Rx Instructions: GIVE 1 TABLET BY MOUTH ONCE A DAY magnesium hydroxide [Milk of Magnesia] 400 mg/5 mL suspension 30 ml PO DAILY PRN (Reason: Constipation, if no BM in 3 days) Qty: 355 3RF acetaminophen 325 mg tablet 325 mg PO Q4H PRN (Reason: fever or pain) Qty: 360 2RF Rx Instructions: GIVE 2 TABS BY MOUTH EVERY 4HRS NEEDED FOR MILD/MOD HEADACHE/MUSCULOSKELETAL PAIN/FEVER *NTE 3GM APAP/24HRS FROM ALL carbidopa-levodopa 25-100 mg tablet 1 tab PO BEDTIME loperamide 2 mg capsule See Rx Instructions .ROUTE .COMPLEX MDD 8 Rx Instructions: Take 2 capsules by mouth initially, followed by 1 cap after each loose unformed stool prn. Rytary 48.75-195 mg Capsule, Extended Release 1 cap PO TID Referrals: Julia Keith MD [Primary Care Provider] - Visit Report Forms: Patient Portal/API
--- NOTE | 2022-07-29 16:52 | DI.RAD.S_ITS ---
PROCEDURE: XR CHEST 1V INDICATIONS: chest pain TECHNIQUE: One view of the chest was acquired. COMPARISON: [facility], CT, CT CERVICAL SPINE WO CON, 07/29/2022, 15:38. [facility], CT, CT HEAD/BRAIN WO CON, 07/29/2022, 15:38. [facility], CR, XR CHEST 1V, 12/05/2021, 11:52. FINDINGS: Surgical changes and devices: None. Lungs and pleura: On this semiupright portable chest examination, no large pneumothorax or large pleural effusions are seen. No focal infiltrates are seen. Mediastinum: Mediastinal contours appear normal. Heart size is normal. Bones and chest wall: Age-appropriate bony degenerative changes are seen. No suspicious bony lesions. Overlying soft tissues appear unremarkable. IMPRESSION: Limited portable chest examination, without a significant cardiopulmonary abnormality identified. Dictated by: Elmer Ashley M.D. on 07/29/2022 at 16:32 Approved by: Elmer Ashley M.D. on 07/29/2022 at 16:33
[2022-07-29 17:08] LABS: Hemoglobin 12.7 g/dL (13.5-17.5); Mean Corpuscular HGB Conc 33.5 % (30-36); Mean Corpuscular Volume 92.4 fL (80-100); Platelet Count 272 X10^3/uL (150-400); Red Blood Cell Count 4.11 X10^6/uL (4.5-5.9); Red Cell Distribution Width 13.9 % (11.6-14.8); White Blood Cell Count 8.3 X10^3/uL (4.5-11.0)
[2022-07-29 17:14] LABS: Alanine Aminotransferase 7 IU/L (<50); Albumin 3.7 g/dL (3.5-5.0); Albumin Globulin Ratio 1.2 (1.0-2.8); Alkaline Phosphatase 83 U/L (38-126); Aspartate Aminotransferase 23 IU/L (17-59); Bilirubin Total 0.6 mg/dL (0.2-1.3); Blood Urea Nitrogen 27 mg/dL (9-20); Calcium 9.7 mg/dL (8.4-10.2); Carbon Dioxide 29 mmol/L (22-32); Chloride 104 mmol/L (98-107); Creatine Kinase 42 U/L (55-170); Estimated Glomerular Filt Rate > 60 mL/min (>60); Globulin 3.1 g/dL (1.7-4.1); Glucose 103 mg/dL (80-110); HEMOLYSIS < 15 (0-50); Lipase 25 U/L (23-300); Magnesium 2.3 mg/dL (1.6-2.3); Potassium 4.2 mmol/L (3.4-5.1); Sodium 141 mmol/L (137-145); Total Protein 6.8 g/dL (6.3-8.2)
[2022-07-29 17:16] LABS: Eosinophils Percent Auto 2.1 % (2-4); Lymphocytes Percent Auto 16.5 % (25-40); Monocytes Percent Auto 11.8 % (3-14); Neutrophils Percent Auto 69.1 % (50-75)
[2022-07-29 17:17] LABS: Add Manual Diff / Slide Review NO; Basophils Absolute Auto 0 /uL (0-100); Basophils Percent Auto 0.5 % (0-2); Eosinophils Absolute Auto 200 /uL (0-450); Lymphocytes Absolute Auto 1400 /uL (1100-4500); Monocytes Absolute Auto 1000 /uL (0-900); Neutrophils Absolute Auto 5700 /uL (1500-7000)
[2022-07-29 17:25] LABS: Troponin I < 0.012 ng/mL (0.01-0.034)
== END 2022-07-29 18:00 | disposition home or self-care (01) ==
PROVIDERS: Emergency Provider Emergency Medicine; PCP Family Medicine
DX: S01.01XA Laceration without foreign body of scalp, initial encounter (principal); R29.6 Repeated falls; W06.XXXA Fall from bed, initial encounter; G20 Parkinson's disease; R00.1 Bradycardia, unspecified; M25.552 Pain in left hip
CPT/HCPCS: 12001; 70450; 71045; 72125; 73502; 73552; 80053; 82550; 83690; 83735; 84484; 85025; 93005; 99283; 99284

== ENCOUNTER 2022-08-21 04:52 | Emergency (ER) | payer MEDICARE, BC, SELFPAY ==
[2019-12-09 20:14] VITALS: BMI 23.4
[2022-08-21] VITALS (21 sets, daily range): BP systolic 117–175; BP diastolic 56–77; PULSE 56–89; RESP 12–25; TEMP 36.6; O2SAT 96–100
--- NOTE | 2022-08-21 04:56 | DI.CT.S_ITS ---
PROCEDURE: CT HEAD/BRAIN WO CON INDICATIONS: Fall/injury TECHNIQUE: Noncontrast 4.5 mm thick angled axial sections acquired from the foramen magnum to the vertex, with coronal and sagittal reformats. For radiation dose reduction, the following was used: automated exposure control, adjustment of mA and/or kV according to patient size. COMPARISON: [facility], CT, CT HEAD/BRAIN WO CON, 07/29/2022, 15:38. FINDINGS: Image quality: Excellent. CSF spaces: Basal cisterns are patent. No extra-axial fluid collections. The ventricles are symmetric in size and shape. Brain: No intracranial bleeds or masses. There is cerebral volume loss for age, with resultant ventricular and sulcal prominence. There are periventricular and deep white matter chronic small vessel ischemic changes. There is intracranial internal carotid artery atherosclerosis. Skull and face: Calvarium and visualized facial bones appear intact, without suspicious lesions. Sinuses: Visualized sinuses and mastoids are clear. IMPRESSION: 1. No acute intracranial abnormality. 2. Cerebral volume loss and small vessel ischemic changes. Comment: Final report is concordant with preliminary interpretation by [facility] Dictated by: Morgan Blanc M.D. on 08/21/2022 at 8:05 Approved by: Morgan Blanc M.D. on 08/21/2022 at 8:06
--- NOTE | 2022-08-21 04:56 | DI.CT.S_ITS ---
PROCEDURE: CT CHEST ABD PEL WO CON INDICATIONS: Fall/injury TECHNIQUE: After the administration of oral contrast, 5 mm thick sections acquired from the lung apices to the symphysis pubis. 5 mm thick coronal and sagittal reformats acquired, with additional 7 mm coronal MIP reformats through the lungs. For radiation dose reduction, the following was used: automated exposure control, adjustment of mA and/or kV according to patient size. COMPARISON: None. FINDINGS: Image quality: Excellent. CHEST: Lungs and pleura: Peripheral septal thickening appears chronic. There are ground-glass opacities in the left posterior lung base consistent with pneumonia, or in the setting of trauma possibly pulmonary contusion. No pneumothorax or pleural effusion. Mediastinum: Heart size is normal. No pericardial effusion. No mediastinal adenopathy by CT size criteria. Thoracic aorta and central pulmonary arteries are normal in size. Esophagus is normal in caliber. No hiatal hernia. Chest wall: No axillary or supraclavicular adenopathy by size criteria. Thyroid gland is normal . ABDOMEN: Solid organs: Liver is normal in size. Gallbladder is normal . Pancreas is normal in contours. Spleen is normal in size. No adrenal nodules. Both kidneys are normal in size, without hydronephrosis or nephrolithiasis. Peritoneum and bowel: Small and large bowel loops are normal in caliber and wall thickness. No free fluid or air. There is diverticulosis without evidence of diverticulitis. Nodes and vessels: No retroperitoneal or mesenteric adenopathy by size criteria. Aorta and inferior vena cava are normal in size. The aorta has atherosclerotic calcifications. Miscellaneous: No ventral hernias. PELVIS: Genitourinary: Bladder wall thickness is normal. Miscellaneous: No inguinal hernias or adenopathy. Bones: No suspicious bony lesions. There are multilevel degenerative changes of the thoracic and lumbar spine. No vertebral body compression fractures. IMPRESSION: 1. Left lower lobe airspace opacities consistent with pneumonia or pulmonary contusion. 2. Otherwise no acute abnormality of the chest, abdomen, or pelvis. Comment: Final report is concordant with preliminary interpretation by [facility] Dictated by: Morgan Blanc M.D. on 08/21/2022 at 8:22 Approved by: Morgan Blanc M.D. on 08/21/2022 at 8:32
--- NOTE | 2022-08-21 04:56 | DI.CT.S_ITS ---
PROCEDURE: CT CERVICAL SPINE WO CON INDICATIONS: Fall/injury TECHNIQUE: Noncontrast 3 mm thick sections acquired from the skull base to the T4 level. Sagittal and coronal reformats were then constructed. For radiation dose reduction, the following was used: automated exposure control, adjustment of mA and/or kV according to patient size. COMPARISON: [facility], CT, CT CERVICAL SPINE WO CON, 07/29/2022, 15:38. FINDINGS: Image quality: Excellent. Bones: Multilevel degenerative changes there is grade 1 anterolisthesis of C4-5 due to facet arthrosis. Disc disease at C5-6 and C6-7 with disc space narrowing. There is fusion of the posterior elements of C5-6. There is central canal narrowing at C6-7. No fractures or dislocations. Visualized superior ribs are intact. Soft tissues: Prevertebral soft tissues are normal in thickness. No paravertebral hematomas. No apical pneumothoraces. IMPRESSION: 1. No acute traumatic abnormality of the cervical spine. 2. 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 3. Narrowing of the spinal canal at C6-7. Dictated by: Morgan Blanc M.D. on 08/21/2022 at 8:33 Approved by: Morgan Blanc M.D. on 08/21/2022 at 8:37
--- NOTE | 2022-08-21 05:02 | ED.FALL ---
HPI - Fall <Bradley Sharma MD - Last Filed: 08/21/22 18:09> General Chief Complaint: Trauma Stated Complaint: GLF found on floor Time Seen by Provider: 08/21/22 04:56 History of Present Illness HPI Narrative: Patient brought in by ambulance from [facility]. For a ground level fall. Patient according to medical chart is DNR, history of atrial fibrillation on Pradaxa. Has history of frequent falls as well. Staff found patient in his room on the floor. Uncertain down time but possibly 1 hour. Patient is shivering. Skin feels cool to touch. Patient is favoring his right hip. Keeps his hip flexed with increased pain with attempts to extend hip and knee. Patient usually uses a walker for ambulation. Patient seen here July 29, 2022 for a ground level fall with scalp laceration. Head CT and cervical C-spine CT scan done at that time no acute process. Related Data Home Medications Medication Instructions Recorded Confirmed carbidopa 25 mg-levodopa 100 mg 1 tab PO BEDTIME 11/21/19 03/26/20 tablet loperamide 2 mg capsule See Rx Instructions .Route .COMPLEX 11/21/19 03/26/20 carbidopa ER 48.75 mg-levodopa 195 1 cap PO TID 12/07/19 03/26/20 mg capsule,extended release (Rytary) pimavanserin 10 mg tablet 10 mg PO DAILY 07/15/20 (Nuplazid) Previous Rx's Medication Instructions Recorded polyethylene glycol 3350 17 17 gram PO DAILY #510 grams 05/12/19 gram/dose oral powder quetiapine 25 mg tablet (Seroquel) 12.5 mg PO BEDTIME #30 tabs 01/03/20 fluticasone furoate 27.5 1 spray intranasal DAILY #9.1 mL 02/23/20 mcg/actuation nasal spray,suspension dabigatran etexilate 150 mg capsule 150 mg PO BID #180 caps 04/16/20 esomeprazole magnesium 40 mg 40 mg PO DAILY #30 caps 04/16/20 capsule,delayed release (Nexium) tamsulosin 0.4 mg capsule 0.8 mg PO QPM #60 caps 04/16/20 donepezil 10 mg tablet (Aricept) 10 mg PO DAILY #30 tabs 08/07/20 rasagiline 1 mg tablet See Rx Instructions .Route 06/18/22 .COMPLEX #90 tabs acetaminophen 325 mg tablet 325 mg PO Q4H PRN fever or pain 07/22/22 #360 tabs magnesium hydroxide 400 mg/5 mL 30 ml PO DAILY PRN Constipation, 07/22/22 oral suspension (Milk of Magnesia) if no BM in 3 days #355 mL amoxicillin 500 mg capsule 1,000 mg PO Q8H 7 days #42 caps 08/21/22 doxycycline hyclate 100 mg capsule 100 mg PO BID #20 caps 08/21/22 Allergies Allergy/AdvReac Type Severity Reaction Status Date / Time nitrofurantoin AdvReac Verified 07/31/21 09:37 [From Macrobid] Review of Systems <Bradley Sharma MD - Last Filed: 08/21/22 18:09> Review of Systems Narrative: GENERAL: Denies chills, fatigue, malaise, fever, sweats. 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 Cataract (1999) Chest wall contusion Chronic back pain (1999) Colon polyps (2001) Dementia Diverticular disease (2006) Esophageal ring (1999) Esophageal web (1999) Fecal incontinence (2014) GERD (gastroesophageal reflux disease) (1999) Gout (1969) Hayfever (1999) Hearing loss (1999) Herpes (1982) Hypertension (2007) Melanoma (2001) Parkinson's disease (2010) Polymyalgia rheumatica (2010) Recurrent sinusitis (1999) Skin cancer (2006) Sleep apnea (2010) Tinnitus (2015) Urinary incontinence (2014) Surgical History Anesthesia History of sinus surgery (1989) Status post hernia repair (1999) Family History Grandfather Heart disease Grandmother Heart disease Father Alcoholism Mother Alzheimer's disease Grandfather MVA (motor vehicle accident) Grandmother No problems noted. Social History household members: other Smoking Status: Former smoker alcohol intake: current Smoking Status: Former smoker alcohol intake frequency: holidays/special occasions only Substance Use Type: does not use Exam <Bradley Sharma MD - Last Filed: 08/21/22 18:09> Narrative Exam Narrative: GENERAL: in no distress, not toxic not dyspneic HEAD: Normocephalic. Atraumatic EYES: Pupils equal round No scleral icterus. ENT: Mucous membranes moist. NECK: Trachea midline. Patient log rolled, no midline tenderness or step-off of the cervicothoracic or lumbar spine. CARDIOVASCULAR: Regular rate and rhythm without murmurs RESPIRATORY: Clear to auscultation. Breath sounds equal bilaterally. No wheezes, rales, or rhonchi. GASTROINTESTINAL: Abdomen soft, non-tender EXTREMITIES: No gross deformities. Patient favoring right hip. Holds it in position of comfort in flexed hip position. Right lower extremity pain when passively trying to extend fully at the hip and knee. Not internally or externally rotated. Examination right upper extremity, nontender shoulder and wrist with no gross deformities. There is edema erythema of the right elbow. No gross deformity. Does have pain with attempts to extend/flex/supinate and pronate at the elbow. BACK: No flank tenderness. Skin intact, no ulcerations, no bruising on the upper lower back. However there is healing bruise to the right hip area which extends with bruising that is old and likely dependent down to the knee. Nontender upper extremities with no gross deformities. I did show bruising hernandez to daughter NEURO: Awake alert oriented x2. Has clear speech no facial droop, strong equal electric range assembler SKIN: Warm and dry PSYCH: Not anxious, is cooperative Initial Vital Signs Initial Vital Signs: Vital Signs Pulse Rate 61 08/21/22 04:59 Pulse Oximetry 99 08/21/22 04:59 <Arpita Noel DO - Last Filed: 08/21/22 18:15> Initial Vital Signs Initial Vital Signs: Vital Signs Pulse Rate 61 08/21/22 04:59 Pulse Oximetry 99 08/21/22 04:59 Course <Bradley Sharma MD - Last Filed: 08/21/22 18:09> Course Course Narrative: 6:00 a.m.. Daughter is at bedside, is power of civil rights attorney. I did review with her regarding code status. He is DNR/DNI however is with selective treatments from what we have discussed. There is no pulse form available. However after discussion she states his care would involve antibiotics IV fluids supplemental oxygen and surgery. He is not comfort measures only. I did review with her risks and benefits of Pradaxa given his frequent falls. At this time she has not made any decisions to discontinue. I did review with her that Pradaxa is protective measurement against stroke with his history of atrial fibrillation however with his frequent falls may cause internal bleeding anywhere in the body including the brain. X-rays of right upper extremity results are pending August 21, 2022 at 7:00 a.m.. Sign out to Dr. noel, labs and imaging are reassuring. However needs social work evaluation as well as physical therapy for safety and ambulation Orders Ordered: ED Orders 08/21/22 04:56 CT cervical spine wo con Stat CT chest abd pel wo con Stat CT head/brain wo con Stat 08/21/22 04:57 EKG-12 Lead Stat 08/21/22 05:00 Complete Blood Count AUTO DIFF Stat Comprehensive Metabolic Panel Stat Partial Thromboplastin Time Stat Prothrombin Time INR Stat Troponin & CK Cardiac Panel Stat 08/21/22 05:37 Respiratory Panel (Film Array) Stat 08/21/22 06:23 Consult to LABORER [employer]ISTING - Vice President [employer] Stat Consult to Physical Therapy Evaluate & Treat 08/21/22 06:25 XR forearm RT 2V Stat XR humerus RT 2V Stat Reevaluation(s) Reevaluation #1: Reviewed results with patient and daughter. The last time patient has physical therapy assessment was 1 year ago at [facility]. He is currently at [facility]. Patient at this time I do not feel safe to go home until evaluated by social work as well as physical therapy. Patient and daughter are in agreement. Consult has been placed in for this morning. Clinically likely not bacterial pneumonia on review of CT scan, spoke with patient and daughter. Agree at this time no antibiotics. Viral panel is pending. Patient not had any cough cold congestion fever or chills. Is 98% room air. No respiratory distress Vital Signs Vital signs: Vital Signs - 8 hr 08/21/22 10:49 Pulse Rate 65 Respiratory Rate 16 Blood Pressure 131/77 Pulse Oximetry 96 Oxygen Delivery Method Room Air <Arpita Noel DO - Last Filed: 08/21/22 18:15> Orders Ordered: ED Orders 08/21/22 04:56 CT cervical spine wo con Stat CT chest abd pel wo con Stat CT head/brain wo con Stat 08/21/22 04:57 EKG-12 Lead Stat 08/21/22 05:00 Complete Blood Count AUTO DIFF Stat Comprehensive Metabolic Panel Stat Partial Thromboplastin Time Stat Prothrombin Time INR Stat Troponin & CK Cardiac Panel Stat 08/21/22 05:37 Respiratory Panel (Film Array) Stat 08/21/22 06:23 Consult to LABORER [employer]ISTING - Vice President [employer] Stat Consult to Physical Therapy Evaluate & Treat 08/21/22 06:25 XR forearm RT 2V Stat XR humerus RT 2V Stat Vital Signs Vital signs: Vital Signs - 8 hr 08/21/22 10:49 Pulse Rate 65 Respiratory Rate 16 Blood Pressure 131/77 Pulse Oximetry 96 Oxygen Delivery Method Room Air MDM - Fall <Bradley Sharma MD - Last Filed: 08/21/22 18:09> Differential Diagnosis Differential diagnosis: Likely compression fracture, concussion with loss of consciousness, concussion without loss of consciousness and other (Pelvis fracture hip fracture/vasovagal syncope/stroke/mi) Lab Data Result diagrams: 08/21/22 05:00 08/21/22 05:00 Labs: Lab Results 08/21/22 08/21/22 08/21/22 Range/Units 05:00 05:00 05:00 WBC 9.9 (4.5-11.0) X10^3/uL RBC 4.30 L (4.5-5.9) X10^6/uL Hgb 13.5 (13.5-17.5) g/dL Hct 39.5 L (41-53) % MCV 91.9 (80-100) fL MCH 31.3 (26-34) PG MCHC 34.0 (30-36) % RDW 14.2 (11.6-14.8) % Plt Count 286 (150-400) X10^3/uL Neut % (Auto) 78.9 H (50-75) % Lymph % (Auto) 11.2 L (25-40) % Person % (Auto) 8.7 (3-14) % Eos % (Auto) 0.6 L (2-4) % Baso % (Auto) 0.6 (0-2) % Neut # (Auto) 7800 H (9355-0291) /uL Lymph # (Auto) 1100 (0718-7169) /uL Person # (Auto) 900 (0-900) /uL Eos # (Auto) 100 (0-450) /uL Baso # (Auto) 100 (0-100) /uL PT 13.3 H (10.1-12.7) SECONDS INR 1.2 (0.9-1.3) APTT 56 H (26-36) SECONDS Sodium (137-145) mmol/L Potassium (3.4-5.1) mmol/L Chloride (98-107) mmol/L Carbon Dioxide (22-32) mmol/L BUN (9-20) mg/dL Creatinine (0.66-1.25) mg/dL Estimated GFR (>60) mL/min BUN/Creatinine Ratio (6-22) Glucose (80-110) mg/dL Calcium (8.4-10.2) mg/dL Total Bilirubin (0.2-1.3) mg/dL AST (17-59) IU/L ALT (<50) IU/L Alkaline Phosphatase (38-126) U/L Total Creatine Kinase 53 L (55-170) U/L CK-MB (CK-2) TNP CK-MB (CK-2) Rel Index TNP Troponin I < 0.012 (0.01-0.034) ng/mL Total Protein (6.3-8.2) g/dL Albumin (3.5-5.0) g/dL Globulin (1.7-4.1) g/dL Albumin/Globulin Ratio (1.0-2.8) Chlamy pneumoniae PCR (Not Detect) Adenovirus (PCR) (Not Detect) B. pertussis DNA (PCR) (Not Detecte) B.parapertussis DNA PCR (Not Detecte) Coronavirus OC43 (PCR) (Not Detect) Coronavirus HKU1 (PCR) (Not Detect) Coronavirus 229E (PCR) (Not Detect) SARS-CoV-2 (PCR) (Not Detecte) Coronavirus NL63 (PCR) (Not Detect) Human Metapneumovir PCR (Not Detect) Influenza Type A (PCR) (Not Detect) Influenza Type B (PCR) (Not Detect) M. pneumoniae (PCR) (Not Detect) Parainfluenza 1 (PCR) (Not Detect) Parainfluenza 2 (PCR) (Not Detect) Parainfluenza 3 (PCR) (Not Detect) Parainfluenza 4 (PCR) (Not Detect) RSV (PCR) (Not Detect) Entero/Rhino (PCR) (Not Detect) 08/21/22 08/21/22 Range/Units 05:00 05:37 WBC (4.5-11.0) X10^3/uL RBC (4.5-5.9) X10^6/uL Hgb (13.5-17.5) g/dL Hct (41-53) % MCV (80-100) fL MCH (26-34) PG MCHC (30-36) % RDW (11.6-14.8) % Plt Count (150-400) X10^3/uL Neut % (Auto) (50-75) % Lymph % (Auto) (25-40) % Person % (Auto) (3-14) % Eos % (Auto) (2-4) % Baso % (Auto) (0-2) % Neut # (Auto) (9216-0066) /uL Lymph # (Auto) (9787-7385) /uL Person # (Auto) (0-900) /uL Eos # (Auto) (0-450) /uL Baso # (Auto) (0-100) /uL PT (10.1-12.7) SECONDS INR (0.9-1.3) APTT (26-36) SECONDS Sodium 141 (137-145) mmol/L Potassium 4.6 (3.4-5.1) mmol/L Chloride 104 (98-107) mmol/L Carbon Dioxide 30 (22-32) mmol/L BUN 20 (9-20) mg/dL Creatinine 0.92 (0.66-1.25) mg/dL Estimated GFR > 60 (>60) mL/min BUN/Creatinine Ratio 21.7 (6-22) Glucose 106 (80-110) mg/dL Calcium 9.9 (8.4-10.2) mg/dL Total Bilirubin 0.8 (0.2-1.3) mg/dL AST 24 (17-59) IU/L ALT 9 (<50) IU/L Alkaline Phosphatase 112 (38-126) U/L Total Creatine Kinase (55-170) U/L CK-MB (CK-2) CK-MB (CK-2) Rel Index Troponin I (0.01-0.034) ng/mL Total Protein 7.1 (6.3-8.2) g/dL Albumin 4.0 (3.5-5.0) g/dL Globulin 3.1 (1.7-4.1) g/dL Albumin/Globulin Ratio 1.3 (1.0-2.8) Chlamy pneumoniae PCR Not detected (Not Detect) Adenovirus (PCR) Not detected (Not Detect) B. pertussis DNA (PCR) Not detected (Not Detecte) B.parapertussis DNA PCR Not detected (Not Detecte) Coronavirus OC43 (PCR) Not detected (Not Detect) Coronavirus HKU1 (PCR) Not detected (Not Detect) Coronavirus 229E (PCR) Not detected (Not Detect) SARS-CoV-2 (PCR) Not detected (Not Detecte) Coronavirus NL63 (PCR) Not detected (Not Detect) Human Metapneumovir PCR Not detected (Not Detect) Influenza Type A (PCR) Not detected (Not Detect) Influenza Type B (PCR) Not detected (Not Detect) M. pneumoniae (PCR) Not detected (Not Detect) Parainfluenza 1 (PCR) Not detected (Not Detect) Parainfluenza 2 (PCR) Not detected (Not Detect) Parainfluenza 3 (PCR) Not detected (Not Detect) Parainfluenza 4 (PCR) Not detected (Not Detect) RSV (PCR) Not detected (Not Detect) Entero/Rhino (PCR) Detected H (Not Detect) Imaging Data CT scan - head: Radiologist's Impression: No acute process. CT - cervical spine: Radiologist's Impression: No acute process CT chest abdomen and pelvis: Radiologist's Impression: No acute fracture. Left lower lobe airspace opacities which may indicate pneumonia. Otherwise no acute finding in the chest abdomen or pelvis ECG Data Interpretation: Great amount of artifact however rate appears to be 63 and rhythm of atrial fibrillation <Arpita Noel, DO - Last Filed: 08/21/22 18:15> Lab Data Labs: Lab Results 08/21/22 08/21/22 08/21/22 Range/Units 05:00 05:00 05:00 WBC 9.9 (4.5-11.0) X10^3/uL RBC 4.30 L (4.5-5.9) X10^6/uL Hgb 13.5 (13.5-17.5) g/dL Hct 39.5 L (41-53) % MCV 91.9 (80-100) fL MCH 31.3 (26-34) PG MCHC 34.0 (30-36) % RDW 14.2 (11.6-14.8) % Plt Count 286 (150-400) X10^3/uL Neut % (Auto) 78.9 H (50-75) % Lymph % (Auto) 11.2 L (25-40) % Person % (Auto) 8.7 (3-14) % Eos % (Auto) 0.6 L (2-4) % Baso % (Auto) 0.6 (0-2) % Neut # (Auto) 7800 H (4739-6126) /uL Lymph # (Auto) 1100 (2796-9306) /uL Person # (Auto) 900 (0-900) /uL Eos # (Auto) 100 (0-450) /uL Baso # (Auto) 100 (0-100) /uL PT 13.3 H (10.1-12.7) SECONDS INR 1.2 (0.9-1.3) APTT 56 H (26-36) SECONDS Sodium (137-145) mmol/L Potassium (3.4-5.1) mmol/L Chloride (98-107) mmol/L Carbon Dioxide (22-32) mmol/L BUN (9-20) mg/dL Creatinine (0.66-1.25) mg/dL Estimated GFR (>60) mL/min BUN/Creatinine Ratio (6-22) Glucose (80-110) mg/dL Calcium (8.4-10.2) mg/dL Total Bilirubin (0.2-1.3) mg/dL AST (17-59) IU/L ALT (<50) IU/L Alkaline Phosphatase (38-126) U/L Total Creatine Kinase 53 L (55-170) U/L CK-MB (CK-2) TNP CK-MB (CK-2) Rel Index TNP Troponin I < 0.012 (0.01-0.034) ng/mL Total Protein (6.3-8.2) g/dL Albumin (3.5-5.0) g/dL Globulin (1.7-4.1) g/dL Albumin/Globulin Ratio (1.0-2.8) Chlamy pneumoniae PCR (Not Detect) Adenovirus (PCR) (Not Detect) B. pertussis DNA (PCR) (Not Detecte) B.parapertussis DNA PCR (Not Detecte) Coronavirus OC43 (PCR) (Not Detect) Coronavirus HKU1 (PCR) (Not Detect) Coronavirus 229E (PCR) (Not Detect) SARS-CoV-2 (PCR) (Not Detecte) Coronavirus NL63 (PCR) (Not Detect) Human Metapneumovir PCR (Not Detect) Influenza Type A (PCR) (Not Detect) Influenza Type B (PCR) (Not Detect) M. pneumoniae (PCR) (Not Detect) Parainfluenza 1 (PCR) (Not Detect) Parainfluenza 2 (PCR) (Not Detect) Parainfluenza 3 (PCR) (Not Detect) Parainfluenza 4 (PCR) (Not Detect) RSV (PCR) (Not Detect) Entero/Rhino (PCR) (Not Detect) 08/21/22 08/21/22 Range/Units 05:00 05:37 WBC (4.5-11.0) X10^3/uL RBC (4.5-5.9) X10^6/uL Hgb (13.5-17.5) g/dL Hct (41-53) % MCV (80-100) fL MCH (26-34) PG MCHC (30-36) % RDW (11.6-14.8) % Plt Count (150-400) X10^3/uL Neut % (Auto) (50-75) % Lymph % (Auto) (25-40) % Person % (Auto) (3-14) % Eos % (Auto) (2-4) % Baso % (Auto) (0-2) % Neut # (Auto) (3989-3024) /uL Lymph # (Auto) (0385-9678) /uL Person # (Auto) (0-900) /uL Eos # (Auto) (0-450) /uL Baso # (Auto) (0-100) /uL PT (10.1-12.7) SECONDS INR (0.9-1.3) APTT (26-36) SECONDS Sodium 141 (137-145) mmol/L Potassium 4.6 (3.4-5.1) mmol/L Chloride 104 (98-107) mmol/L Carbon Dioxide 30 (22-32) mmol/L BUN 20 (9-20) mg/dL Creatinine 0.92 (0.66-1.25) mg/dL Estimated GFR > 60 (>60) mL/min BUN/Creatinine Ratio 21.7 (6-22) Glucose 106 (80-110) mg/dL Calcium 9.9 (8.4-10.2) mg/dL Total Bilirubin 0.8 (0.2-1.3) mg/dL AST 24 (17-59) IU/L ALT 9 (<50) IU/L Alkaline Phosphatase 112 (38-126) U/L Total Creatine Kinase (55-170) U/L CK-MB (CK-2) CK-MB (CK-2) Rel Index Troponin I (0.01-0.034) ng/mL Total Protein 7.1 (6.3-8.2) g/dL Albumin 4.0 (3.5-5.0) g/dL Globulin 3.1 (1.7-4.1) g/dL Albumin/Globulin Ratio 1.3 (1.0-2.8) Chlamy pneumoniae PCR Not detected (Not Detect) Adenovirus (PCR) Not detected (Not Detect) B. pertussis DNA (PCR) Not detected (Not Detecte) B.parapertussis DNA PCR Not detected (Not Detecte) Coronavirus OC43 (PCR) Not detected (Not Detect) Coronavirus HKU1 (PCR) Not detected (Not Detect) Coronavirus 229E (PCR) Not detected (Not Detect) SARS-CoV-2 (PCR) Not detected (Not Detecte) Coronavirus NL63 (PCR) Not detected (Not Detect) Human Metapneumovir PCR Not detected (Not Detect) Influenza Type A (PCR) Not detected (Not Detect) Influenza Type B (PCR) Not detected (Not Detect) M. pneumoniae (PCR) Not detected (Not Detect) Parainfluenza 1 (PCR) Not detected (Not Detect) Parainfluenza 2 (PCR) Not detected (Not Detect) Parainfluenza 3 (PCR) Not detected (Not Detect) Parainfluenza 4 (PCR) Not detected (Not Detect) RSV (PCR) Not detected (Not Detect) Entero/Rhino (PCR) Detected H (Not Detect) MDM Narrative Medical decision making narrative: Patient signed out to me by Dr. Sharma. Patient has ongoing dementia lives at [facility] has had frequent falls on Pradaxa. Is no longer safe for patient to be on Pradaxa discussed this with his daughter. His he came in cold and shivering he is found to have an tear all/rhino virus possible pneumonia on x-ray. He is not septic he is not requiring oxygen at this time best for him to go back to [facility]. Social work was involved will help try to get a caregiver, in discussed hospice options as well. Discharge Plan Departure Patient Disposition: Home Clinical Impression: Acute upper respiratory infection, Pneumonia Instructions: DI for Pneumonia -- Adult, DI for Viral Upper Respiratory Infection -- Adult Activity Restrictions/Additional Instructions: *You have been diagnosed with frequent falls, entero/rhinovirus and possible pneumonia *What to do: At this time look into getting a caregiver. *Continue to take medications as directed MUST STOP PRADAXA Start taking doxycycline twice a day for 7 days for possible pneumonia Amoxicillin 1000 mg 3 times a day for 5 days Treat fever with Tylenol *Follow up with your primary care provider in 2-3 days or call [phone] *Return to ER if you should have increased confusion week difficulty breathing or any new, worsening or concerning symptoms Prescriptions: New doxycycline hyclate 100 mg capsule 100 mg PO BID Qty: 20 0RF amoxicillin 500 mg capsule 1,000 mg PO Q8H 7 Days Qty: 42 0RF No Action polyethylene glycol 3350 17 gram/dose powder 17 gram PO DAILY Qty: 510 12RF Rx Instructions: hold for diarrhea and for two days after quetiapine [Seroquel] 25 mg tablet 12.5 mg PO BEDTIME Qty: 30 3RF fluticasone furoate 27.5 mcg/actuation spray,suspension 1 spray INTRANASAL DAILY Qty: 9.1 3RF dabigatran etexilate 150 mg capsule 150 mg PO BID Qty: 180 1RF tamsulosin 0.4 mg capsule 0.8 mg PO QPM Qty: 60 5RF Rx Instructions: 0.8 mg PO daily 30 min after dinner; esomeprazole magnesium [Nexium] 40 mg capsule,delayed release(DR/EC) 40 mg PO DAILY Qty: 30 5RF Nuplazid 10 mg tablet 10 mg PO DAILY donepezil [Aricept] 10 mg tablet 10 mg PO DAILY Qty: 30 6RF rasagiline 1 mg tablet See Rx Instructions .ROUTE .COMPLEX Qty: 90 0RF Dose Instruction: GIVE 1 TABLET BY MOUTH ONCE A DAY Rx Instructions: GIVE 1 TABLET BY MOUTH ONCE A DAY magnesium hydroxide [Milk of Magnesia] 400 mg/5 mL suspension 30 ml PO DAILY PRN (Reason: Constipation, if no BM in 3 days) Qty: 355 3RF acetaminophen 325 mg tablet 325 mg PO Q4H PRN (Reason: fever or pain) Qty: 360 2RF Rx Instructions: GIVE 2 TABS BY MOUTH EVERY 4HRS NEEDED FOR MILD/MOD HEADACHE/MUSCULOSKELETAL PAIN/FEVER *NTE 3GM APAP/24HRS FROM ALL carbidopa-levodopa 25-100 mg tablet 1 tab PO BEDTIME loperamide 2 mg capsule See Rx Instructions .ROUTE .COMPLEX MDD 8 Rx Instructions: Take 2 capsules by mouth initially, followed by 1 cap after each loose unformed stool prn. Rytary 48.75-195 mg Capsule, Extended Release 1 cap PO TID Referrals: Julia Keith MD [Primary Care Provider] - Visit Report Forms: Patient Portal/API
[2022-08-21 05:16] LABS: Add Manual Diff / Slide Review NO; Basophils Absolute Auto 100 /uL (0-100); Basophils Percent Auto 0.6 % (0-2); Eosinophils Absolute Auto 100 /uL (0-450); Eosinophils Percent Auto 0.6 % (2-4); Hematocrit 39.5 % (41-53); Hemoglobin 13.5 g/dL (13.5-17.5); Lymphocytes Absolute Auto 1100 /uL (1100-4500); Lymphocytes Percent Auto 11.2 % (25-40); Mean Corpuscular Hemoglobin 31.3 PG (26-34); Mean Corpuscular Volume 91.9 fL (80-100); Monocytes Absolute Auto 900 /uL (0-900); Monocytes Percent Auto 8.7 % (3-14); Neutrophils Absolute Auto 7800 /uL (1500-7000); Neutrophils Percent Auto 78.9 % (50-75); Platelet Count 286 X10^3/uL (150-400); Red Cell Distribution Width 14.2 % (11.6-14.8); White Blood Cell Count 9.9 X10^3/uL (4.5-11.0)
[2022-08-21 05:21] LABS: INR 1.2 (0.9-1.3); Prothrombin Time 13.3 SECONDS (10.1-12.7)
[2022-08-21 05:23] LABS: Creatine Kinase 53 U/L (55-170); PTT Partial Thromboplastin Tim 56 SECONDS (26-36)
[2022-08-21 05:25] LABS: Alanine Aminotransferase 9 IU/L (<50); Albumin Globulin Ratio 1.3 (1.0-2.8); Alkaline Phosphatase 112 U/L (38-126); Aspartate Aminotransferase 24 IU/L (17-59); BUN Creatinine Ratio 21.7 (6-22); Bilirubin Total 0.8 mg/dL (0.2-1.3); Blood Urea Nitrogen 20 mg/dL (9-20); Calcium 9.9 mg/dL (8.4-10.2); Carbon Dioxide 30 mmol/L (22-32); Chloride 104 mmol/L (98-107); Estimated Glomerular Filt Rate > 60 mL/min (>60); Globulin 3.1 g/dL (1.7-4.1); Glucose 106 mg/dL (80-110); HEMOLYSIS < 15 (0-50); Potassium 4.6 mmol/L (3.4-5.1); Sodium 141 mmol/L (137-145); Total Protein 7.1 g/dL (6.3-8.2)
[2022-08-21 05:36] LABS: Troponin I < 0.012 ng/mL (0.01-0.034)
--- NOTE | 2022-08-21 06:25 | DI.RAD.S_ITS ---
PROCEDURE: XR FOREARM RT 2V INDICATIONS: fall/injury TECHNIQUE: 2 views of the forearm were acquired. COMPARISON: None. FINDINGS: Bones: No acute fractures or dislocations. No suspicious bony lesions. Severe degenerative changes are seen at the radiocarpal and 1st carpometacarpal joints. Generalized osteopenia. Soft tissues: No suspicious soft tissue calcifications or masses. Soft tissue edema is seen surrounding the wrist. IMPRESSION: Nonspecific soft tissue edema surrounding the wrist. No acute osseous abnormality in the forearm. If there is clinical concern for a wrist fracture, consider dedicated wrist radiographs. If symptoms persist, additional imaging with repeat plain films, or advanced imaging (e.g. CT, MRI) may be helpful for further assessment. Approved by: Christopher Meier M.D. on 08/21/2022 at 8:10
--- NOTE | 2022-08-21 06:25 | DI.RAD.S_ITS ---
PROCEDURE: XR HUMERUS RT 2V INDICATIONS: fall/injury TECHNIQUE: 2 views of the humerus were acquired. COMPARISON: None. FINDINGS: Bones: No acute fractures or dislocations. No suspicious bony lesions. Degenerative changes are seen in the acromioclavicular joint. Soft tissues: No suspicious soft tissue calcifications. IMPRESSION: No acute osseous abnormality. If clinical suspicion and/or symptoms persist, additional imaging with repeat plain films, or advanced imaging (e.g. CT, MRI) may be helpful for further assessment. Approved by: Christopher Meier M.D. on 08/21/2022 at 8:11
[2022-08-21 06:31] LABS: Adenovirus Not Detected (Not Detect); B. parapertussis Not Detected (Not Detecte); Bordetella pertussis Not Detected (Not Detecte); Chlamydophila pneumoniae Not Detected (Not Detect); Coronavirus 229E Not Detected (Not Detect); Coronavirus HKU1 Not Detected (Not Detect); Coronavirus NL 63 Not Detected (Not Detect); Coronavirus OC43 Not Detected (Not Detect); Human Metapneumovirus Not Detected (Not Detect); Human Rhinovirus/Enterovirus Detected (Not Detect); Influenza A Not Detected (Not Detect); Influenza B Not Detected (Not Detect); Mycoplasma pneumoniae Not Detected (Not Detect); Parainfluenza Virus 1 Not Detected (Not Detect); Parainfluenza Virus 2 Not Detected (Not Detect); Parainfluenza Virus 3 Not Detected (Not Detect); Parainfluenza Virus 4 Not Detected (Not Detect); Respiratory Syncytial Virus Not Detected (Not Detect); SARS- CoV-2 Not Detected (Not Detecte)
--- NOTE | 2022-08-21 09:19 | PC.NURSE ---
I spoke with BAR HELPER and PT at this time. Outpatient PT will come and see patient at 10am. IRENE Mancilla is aware of patient.
--- NOTE | 2022-08-21 11:10 | CM.DANOTE ---
Initial DCP Assessment Note Pt is a 86 yo male, resident of [facility] in [place], presents after being found down by a caregiver in his private room at , after GLF. This COMPUTED TOMOGRAPHY TECHNOLOGIST requested for consult, to assess needs and assist w/discharge planning for this patient. Patient medically stable for discharge, imaging all clear PCP: Julia Keith Payer: JAMIA/ANAYELI Nick Reviewed chart, spoke w/patient's dtr Elina who lives in [place]. Explained that patient is medically cleared and will be discharged from the ER this morning. Dtr Elina will coordinate w/staff at [facility], transport either via dtr's pov vs facility van Dtr wants patient to discharge back to [facility] care and asks for input re an increase of safety measures, since patient having numerous falls at Discussed the following: Moving patient into a room w/a roommate, moving patient nearer to a station where staff can keep better eye on patient, hiring additional caregiver support, Hospice referral Provided Senior Resource Guide for private paid caregiver options and Hospice referral made to [facility], per dtr's request Updated Dr Hernández on plan Plan: DC back home to [facility] care via dtr's pov vs facility van w/Hospice referral pending and dtr educated re options to increase monitoring and care at facility IRENE Kang Discharge Planning/Care Management CM Discharge Assessment Start: 08/21/22 11:06 Freq: Status: Active Protocol: Document 08/21/22 11:06 JODY (Rec: 08/21/22 11:10 JODY [id number]) Discharge Planning Assessment Assigned Yarn Examiner Skeins IRENE Sterling DPOA/Assigned Designee Name Elina Mehta dtr Contact Information [phone] Advance Directives? Yes: Yes/ POLST [facility] Advance Directives on File No History Provided By Family Member,Medical Record Prior Living Arrangements Assisted Living Comment [facility] Household Members other Type of transportation used prior to Relies on Others admit Facility Name Admitted From: [facility] Willing to Return to Facility? Yes Independent with ADL's No: Requires assist w/most ADLs Is patient alert and oriented? No: Dementia Needs Assistance With Bathing,Grooming,Meal Prep, Toileting,Managing Medications ,Home Chores / Shopping Comment Back to Memory Care Comment Discussed strategies to increase monitoring and safety measures for patient, hx of falls on blood thinners Barriers to Discharge No Comment Back to memory care from the ER this morning, resources provided Discharge Plan Assisted Living Facility Transportation Arrangement Family Referrals Initiated Other Additional [facility]
--- NOTE | 2022-08-21 11:18 | OT.IP.EVAL ---
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 Cataract (1999) Chest wall contusion Chronic back pain (1999) Colon polyps (2001) Dementia Diverticular disease (2006) Esophageal ring (1999) Esophageal web (1999) Fecal incontinence (2015) GERD (gastroesophageal reflux disease) (1999) Gout (1969) Hayfever (1999) Hearing loss (1999) Herpes (1982) Hypertension (2007) Melanoma (2001) Parkinson's disease (2010) Polymyalgia rheumatica (2010) Recurrent sinusitis (1999) Skin cancer (2006) Sleep apnea (2010) Tinnitus (2015) Urinary incontinence (2014) Surgical History (Last Reviewed 08/21/22 @ 05:05 by Bradley Sharma MD) Anesthesia History of sinus surgery (1989) Status post hernia repair (1999) Occupational Therapy Inpatient Evaluation/Re-Eval M1 PT/OT-IP Prior Functional Status Start: 08/21/22 11:02 Freq: Status: Active Protocol: Document 08/21/22 10:35 DCW (Rec: 08/21/22 11:18 DCW [id number]) Medical Review Prior Functional Status Medical History Reviewed Yes Communication Confused Mobility and Gait PLOF - Ambulated /c FWW, multiple recent falls Social History Household Members other Comment Pt lives at [facility] Home Equipment Front Wheel Walker
== END 2022-08-21 11:25 | disposition home or self-care (01) ==
PROVIDERS: Emergency Medicine; Emergency Provider Emergency Medicine; PCP Family Medicine
DX: J06.9 Acute upper respiratory infection, unspecified (principal); J18.9 Pneumonia, unspecified organism; R29.6 Repeated falls; M25.551 Pain in right hip; W18.30XA Fall on same level, unspecified, initial encounter; Z20.822 Contact with and (suspected) exposure to COVID-19
CPT/HCPCS: 36415; 70450; 71250; 72125; 73060; 73090; 74176; 80053; 82550; 84484; 85025; 85610; 85730; 87633; 93005; 97163; 99284